=== PATIENT | female | born 1940 | race Caucasian/White ===

== ENCOUNTER → 2016-09-19 | Outpatient (CLI) | payer MEDICARE ==
--- NOTE | 2016-09-19 13:52 | MM ---
Reason for exam: screening (asymptomatic). Last mammogram was performed 1 year and 1 month ago. History: Patient is postmenopausal. Family history of breast cancer in sister. Physical Findings: A clinical breast exam by your physician is recommended on an annual basis and results should be correlated with mammographic findings. MG 3D Screening Mammo W/Cad Bilateral CC and MLO view(s) were taken. Prior study comparison: August 27, 2015, bilateral MG 3d screening mammo w/cad. August 24, 2014, bilateral MG screening mammo w CAD. The breast tissue is heterogeneously dense. This may lower the sensitivity of mammography. There is no discrete abnormality. No significant changes when compared with prior studies. ASSESSMENT: Negative, BI-RAD 1 RECOMMENDATION: Routine screening mammogram of both breasts in 1 year.
--- NOTE | 2016-09-19 16:57 | BD ---
EXAMINATION TYPE: MG DEXA axial skeleton. DATE OF EXAM: 09/19/2016 CLINICAL HISTORY: 76-year-old female screening osteoporosis Height: 60.5 Weight: 211 FRAX RISK QUESTIONS: Alcohol (3 or more units per day): no Family History (Parent hip fracture): no Glucocorticoids (More than 3mos): no (Ex: prednisone, prednisolone, methylprednisolone, dexamethasone, and hydrocortisone). History of Fracture in Adulthood: yes, T-Spine Secondary Osteoporosis: 1. Type 1 Diabetes: no 2. Hyperthyroidism: no 3. Menopause before 45: no 4. Malnutrition: no 5. Chronic liver disease: no Rheumatoid Arthritis: no Current Tobacco Use: no RISK FACTORS HISTORY OF: Hip Fracture (Right/Left): no Spine Fracture: yes When: 2003 History of Wrist Fracture: no Surgery to Spine: yes T-6, T-7, & & later T-8 When: 2003 Family History of Osteoporosis: yes Active: somewhat Diet low in dairy products/other sources of calcium: about one serving a day at least Postmenopausal woman: yes Take estrogen and/or progesterone medications: no Lost more than 2 inches in height since high school: yes Frequent falls: yes, lately Poor Health: somewhat Hyperparathyroidism: no Adrenal Insufficiency: no MEDICATIONS: Prednisone or other steroids: no Thyroid Medications: no Osteoporosis Medications: Yes Which medication: Fosamax How Long: since before 2013 Additional Medications: blood pressure meds, cholesterol meds EXAM MEASUREMENTS: Bone mineral densitometry was performed using the [employer] System. Bone mineral density as measured about the Lumbar spine is: ----- L1-L4(G/cm2): 1.102 T Score Values are as follows: ----- L2: -0.6 ----- L3: -1.1 ----- L4: -0.9 ----- L1-L4: -0.7 Bone mineral density has: Decreased -3.4% since study of: 08/20/2013 Bone mineral density about the R hip (g/cm2): 0.886 Bone mineral density about the L hip (g/cm2): 0.843 T Score values are as follows: -----R Neck: -1.1 -----L Neck: -1.4 -----R Total: 0.0 -----L Total: -0.5 Bone mineral density has: Decreased -1.5% since study of: 08/20/2013 IMPRESSION: Osteopenia (T Score between -2.5 and -1 as noted by T score values There is slightly increased risk of fracture and the patient may be considered for treatment. Re-Screen 2-5 years. NOTE: T-SCORE=SD OF THE YOUNG ADULT MEAN.
== END | disposition home or self-care (01) ==
LOC: RADMAMWWP 09:42
PROVIDERS: ATTEND Family Medicine
DX: Z12.31 Encounter for screening mammogram for malignant neoplasm of breast (principal); Z13.820 Encounter for screening for osteoporosis; M85.80 Other specified disorders of bone density and structure, unspecified site
CPT/HCPCS: 77080; 77063; G0202

== ENCOUNTER → 2017-09-26 | Outpatient (CLI) | payer MEDICARE ==
[2017-09-26 10:46] LABS: Basophils # (A) 0.1 k/uL (0-0.2); Basophils % (A) 1 %; Eosinophils # (A) 0.3 k/uL (0-0.7); Eosinophils % (A) 5 %; HCT 39.2 % (34.0-46.0); HGB 12.4 gm/dL (11.4-16.0); Lymphocytes % (A) 18 %; MCH 27.7 pg (25.0-35.0); MCHC 31.7 g/dL (31.0-37.0); MCV 87.5 fL (80.0-100.0); Mean Platelet Volume 6.8; Monocytes # (A) 0.3 k/uL (0-1.0); Monocytes % (A) 5 %; Neutrophils # (A) 3.8 k/uL (1.3-7.7); Neutrophils % (A) 70 %; Platelet Count 258 k/uL (150-450); RBC 4.48 m/uL (3.80-5.40); RDW 13.8 % (11.5-15.5); WBC 5.5 k/uL (3.8-10.6)
[2017-09-26 10:54] LABS: Partial Thromboplastin Time 24.3 sec (22.0-30.0); Prothrombin Time 9.9 sec (9.0-12.0)
[2017-09-26 11:01] LABS: ALT 21 U/L (9-52); AST 17 U/L (14-36); Albumin 3.9 g/dL (3.5-5.0); Alkaline Phosphatase 56 U/L (38-126); Anion Gap 9 mmol/L; Blood Urea Nitrogen 13 mg/dL (7-17); Calcium 9.9 mg/dL (8.4-10.2); Carbon Dioxide 32 mmol/L (22-30); Chloride 96 mmol/L (98-107); Glucose 71 mg/dL (74-99); Potassium 4.5 mmol/L (3.5-5.1); Sodium 137 mmol/L (137-145); Total Bilirubin 0.2 mg/dL (0.2-1.3); Total Protein 6.1 g/dL (6.3-8.2)
[2017-09-26 11:05] LABS: Appearance,Urine Clear (Clear); Bacteria,Urine Few /hpf; Bilirubin,Urine Negative (Negative); Blood,Urine Negative (Negative); Color,Urine Colorless; Glucose,Urine (UA) Negative (Negative); Ketones,Urine Negative (Negative); Leukocyte Esterase,Urine Moderate (Negative); Mucus,Urine Rare /hpf; Nitrite,Urine Positive (Negative); Protein,Urine Negative (Negative); RBC,Urine <1 /hpf (0-5); Specific Gravity,Urine 1.007 (1.001-1.035); Squamous Epithelial Cell,Urine <1 /hpf (0-4); Urobilinogen,Urine <2.0 mg/dL (<2.0); WBC,Urine 19 /hpf (0-5)
== END | disposition home or self-care (01) ==
LOC: LABWHC1 09:48
PROVIDERS: ATTEND Orthopaedic Surgery
DX: Z01.812 Encounter for preprocedural laboratory examination (principal)
CPT/HCPCS: 36415; 80053; 81001; 85025; 85610; 85730; 87086

== ENCOUNTER → 2018-04-02 | Outpatient (CLI) | payer MEDICARE ==
--- NOTE | 2018-04-02 10:56 | MM ---
Reason for exam: screening (asymptomatic). Last mammogram was performed 1 year and 6 months ago. History: Patient is postmenopausal. Family history of breast cancer in sister. Physical Findings: A clinical breast exam by your physician is recommended on an annual basis and results should be correlated with mammographic findings. MG 3D Screening Mammo W/Cad Bilateral CC and MLO view(s) were taken. Prior study comparison: September 19, 2016, bilateral MG 3d screening mammo w/cad. August 27, 2015, bilateral MG 3d screening mammo w/cad. The breast tissue is heterogeneously dense. This may lower the sensitivity of mammography. No significant changes when compared with prior studies. ASSESSMENT: Benign, BI-RAD 2 RECOMMENDATION: Routine screening mammogram of both breasts in 1 year.
== END ==
LOC: RADMAMWWP 10:27
PROVIDERS: ATTEND Family Medicine
DX: Z12.31 Encounter for screening mammogram for malignant neoplasm of breast (principal)
CPT/HCPCS: 77063; 77067

== ENCOUNTER → 2018-08-19 | Outpatient (CLI) | payer MEDICARE ==
--- NOTE | 2018-08-20 10:13 | US ---
EXAMINATION TYPE: US kidneys/renal and bladder DATE OF EXAM: 08/19/2018 COMPARISON: NONE CLINICAL HISTORY: N28.1 CYST OF KIDNEY. History of kidney cyst, exam done with patient sitting up in wheelchair. EXAM MEASUREMENTS: Right Kidney: 10.9 x 4.6 x 3.5 cm Left Kidney: 9.7 x 4.5 x 4.4 cm Difficult and limited study due to patient body habitus and exam done with patient sitting up in wh eelchair Right Kidney: 1.4 x 1.2 x 1.4cm exophytic cystic area mid pole, limited by rib shadowing Left Kidney: 0.5cm echogenic focus inferior pole, limited by rib shadowing Bladder: not imaged due to limitations described above There is no evidence for hydronephrosis at this point in time. No nephrolithiasis is seen. No viri s are identified. IMPRESSION: 1. Simple appearing right renal cyst measuring 1.4 cm, benign and Bosniak category category. 2. Nonobstructing 5 mm left renal calculus. 3. Urinary bladder was not visualized as described above.
== END | disposition home or self-care (01) ==
LOC: RADUSWWP 16:02
PROVIDERS: ATTEND Family Medicine
DX: N28.1 Cyst of kidney, acquired (principal); N20.0 Calculus of kidney
CPT/HCPCS: 76770

== ENCOUNTER → 2018-11-08 | Outpatient (CLI) | payer MEDICARE ==
--- NOTE | 2018-11-11 19:24 | BD ---
EXAMINATION TYPE: Axial Bone Density DATE OF EXAM: 11/08/2018 COMPARISON: NONE CLINICAL HISTORY: 78-year-old female disorder of bone Height: 61 Weight: 200.1 FRAX RISK QUESTIONS: Alcohol (3 or more units per day): no Family History (Parent hip fracture): no Glucocorticoids (More than 3mos): no (Ex: prednisone, prednisolone, methylprednisolone, dexamethasone, and hydrocortisone). History of Fracture in Adulthood: yes Secondary Osteoporosis: 1. Type 1 Diabetes: no 2. Hyperthyroidism: no 3. Menopause before 45: no 4. Malnutrition: no 5. Chronic liver disease: no Rheumatoid Arthritis: no Current Tobacco Use: no RISK FACTORS HISTORY OF: Spine Fracture: t spine Family History of Osteoporosis: yes Active: no Diet low in dairy products/other sources of calcium: yes Postmenopausal woman: long time ago Lost more than 2 inches in height since high school: yes MEDICATIONS: Osteoporosis Medications: fosamax How Long: long time Additional Medications: Additional History: EXAM MEASUREMENTS: Bone mineral densitometry was performed using the [employer] System. Bone mineral density as measured about the Lumbar spine is: ----- L1-L4(G/cm2): 1.018 T Score Values are as follows: ----- L2: -1.2 ----- L3: -1.6 ----- L4: -1.2 ----- L1-L4: -1.3 Bone mineral density has: decreased -4.8 % since study of: 09.19.2016 Bone mineral density about the R hip (g/cm2): 0.851 Bone mineral density about the L hip (g/cm2): 0.791 T Score values are as follows: -----R Neck: -1.3 -----L Neck: -1.8 -----R Total: -0.9 -----L Total: -1.4 Bone mineral density has: decreased -11.6 % since study of: 09.19.2016 IMPRESSION: Osteopenia (T Score between -2.5 and -1). There is slightly increased risk of fracture and the patient may be considered for treatment. Re-Screen 2-5 years. NOTE: T-SCORE=SD OF THE YOUNG ADULT MEAN.
== END | disposition home or self-care (01) ==
LOC: RADBDWWP 13:16
PROVIDERS: ATTEND Family Medicine
DX: M85.80 Other specified disorders of bone density and structure, unspecified site (principal)
CPT/HCPCS: 77080

== ENCOUNTER → 2018-12-12 | Outpatient (CLI) | payer MEDICARE ==
--- NOTE | 2018-12-12 13:56 | MR ---
EXAMINATION TYPE: MR kidney wo/w con DATE OF EXAM: 12/12/2018 COMPARISON: Renal ultrasound dated 08/19/2018 HISTORY: Cyst on left kidney CONTRAST: Standard multiplanar, multisequence MRI departmental protocol utilizing 9 mL intravenous Gadavist canelo olinium contrast. FINDINGS: Signal dropout throughout the hepatic parenchyma is seen on out of phase imaging compatible with hepa tic steatosis appearing moderate grade. This somewhat limits evaluation for hepatic masses. The liver is incompletely viewed on T2-weighted images. In the visualized portions there are 3 T2 hyperintense hepatic cysts seen, one with a single thin septation. These all appear benign. The largest measures 1.5 cm. There is very mild intrahepatic biliary ductal dilatation slightly greater than the left hepa tic lobe and right. There is very mild left-sided hydronephrosis with calyceal blunting and proximal ureteral dilatation. Possible proximal ureteral stricture versus incomplete visualization with tortuosity In addition to multiple T2 hyperintense benign appearing renal cysts there is an exophytic right lowe r pole slightly T1 hyperintense nonenhancing lesion measuring 1.0 cm that is T2 hypointense on bal l T2 nonfat sat image 17. This is compatible with a small hemorrhagic cyst. The larger T2 hyperintens e and T1 hypointense nonenhancing cysts bilaterally, particularly within the anterior right midpole c ontaining a single thin internal septation measuring 1.5 x 1.4 cm and emanating posteriorly from the mid pole measuring 0.8 cm. On the left there is a 4 mm nonenhancing midpole renal cyst and 1.1 x 1.1 cm nonenhancing left upper pole renal cyst. No hydronephrosis on the right. On the left there is a T2 hypointense and T1 hyperintense nonenhancing exophytic 7 mm lesion of the left lower pole compatible with a benign proteinaceous or hemorrhagic cyst. No dilated large or small bowel is seen. The pancreas has a tortuous course and there is a lobulated aspect of the dorsal body of the pancreas that abuts a branch vessel of the splenic artery. This appe ars to enhance similar to the remainder of the pancreatic parenchyma and there is no ductal dilatatio n seen. No peripancreatic adenopathy. Adrenal glands appear symmetric and unremarkable. Spleen is also unremarkable. Mild left hemidiaphrag m elevation is seen. Right basilar atelectasis is noted. Incidentally seen small low ventral hernia p araseptal. IMPRESSION: 1. Lobulated contour of the dorsal pancreatic body. This appears to have enhancement similar to the r emainder the pancreatic body and could represent congenital accessory pancreatic tissue. Correlation with any prior outside CT abdomen or MRI abdomen could be recommended to ensure stability, otherwise early pancreatic mass is possible and short-term follow-up MR abdomen and 3-6 months would be recomme nded. 2. Benign bilateral renal cysts, some of which appear as hemorrhagic and proteinaceous cysts. None de monstrate suspicious enhancement. 3. Incidentally seen. Mild left-sided hydronephrosis with possible left proximal ureteral stricture v ersus spasm and incomplete visualization. 4. Multiple benign-appearing hepatic cysts and moderate grade hepatic steatosis.
== END | disposition home or self-care (01) ==
LOC: RADMRIMAIN 10:40
PROVIDERS: ATTEND Family Medicine
DX: Q61.02 Congenital multiple renal cysts (principal); K76.0 Fatty (change of) liver, not elsewhere classified
CPT/HCPCS: 74183; A9585

== ENCOUNTER → 2020-09-13 | Outpatient (CLI) | payer MEDICARE ==
--- NOTE | 2020-09-15 08:15 | MM ---
Reason for exam: screening (asymptomatic). Last mammogram was performed 2 years and 5 months ago. History: Patient is postmenopausal. Family history of breast cancer in cousin and breast cancer in sister. Physical Findings: A clinical breast exam by your physician is recommended on an annual basis and results should be correlated with mammographic findings. MG 3D Screening Mammo W/Cad Bilateral CC and MLO view(s) were taken. Prior study comparison: April 02, 2018, bilateral MG 3d screening mammo w/cad. September 19, 2016, bilateral MG 3d screening mammo w/cad. August 27, 2015, bilateral MG 3d screening mammo w/cad. The breast tissue is heterogeneously dense. This may lower the sensitivity of mammography. No significant changes when compared with prior studies. ASSESSMENT: Benign, BI-RAD 2 RECOMMENDATION: Routine screening mammogram of both breasts in 1 year.
== END | disposition home or self-care (01) ==
LOC: RADMAMWWP 09:09
PROVIDERS: ATTEND Family Medicine
DX: Z12.31 Encounter for screening mammogram for malignant neoplasm of breast (principal); Z78.0 Asymptomatic menopausal state; Z80.3 Family history of malignant neoplasm of breast
CPT/HCPCS: 77063; 77067

== ENCOUNTER 2021-04-23 01:07 | Emergency (ER) | payer MEDICARE ==
[2021-04-23 01:17] VITALS: RESP 16; TEMP 97.9
--- NOTE | 2021-04-23 01:34 | ED ---
General Adult HPI - General Chief complaint: Extremity Injury, Upper Stated complaint: R Shoulder Fracture Time Seen by Provider: 04/23/21 01:31 Source: patient, EMS, RN notes reviewed, old records reviewed Mode of arrival: EMS - History of Present Illness Initial comments: 80-year-old female alert and oriented, presents to the emergency room with complaints of right shoulder pain. Patient states that she's had the pain since she fell a month ago. She had an x-ray today at [facility] that shows an anterior displaced humerus with an acute fracture in the superior scapula about the right glenoid. Patient describes the pain is 5 out of 10. Stated they gave her Tylenol today for her pain which has helped. -: month(s) (1) Location: right (shoulder), upper extremity Radiation: non-radiation Severity scale (1-10): 5 Quality: aching, dull Improves with: immobilization Worsens with: movement Associated Symptoms: denies other symptoms Treatments Prior to Arrival: other (tylenol, xr) - Related Data Home Medications Medication Instructions Recorded Confirmed Albuterol Inhaler (Mhu) [Ventolin 1 - 2 puff INHALATION Q4-6H PRN 08/22/13 06/07/17 Inhaler] Alendronate Sodium [Fosamax] 70 mg PO WEEKLY 08/22/13 06/07/17 Aspirin 81 mg PO DAILY 08/22/13 06/07/17 Benazepril [Lotensin] 15 mg PO DAILY 08/22/13 06/07/17 Fenofibric Acid (Choline) 135 mg PO HS 08/22/13 06/07/17 [Trilipix] Fexofenadine HCl [Soniya Allergy] 180 mg PO DAILY 08/22/13 06/07/17 Fluticasone Propionate [Flonase] 2 spray EA NOSTRIL DAILY 08/22/13 06/07/17 Ibuprofen [Motrin] 600 mg PO Q6HR PRN 08/22/13 06/07/17 Omeprazole [PriLOSEC] 20 mg PO AC-BRKFST 08/22/13 06/07/17 Simvastatin [Zocor] 80 mg PO HS 08/22/13 06/07/17 atenoloL [Tenormin] 50 mg PO BID 08/22/13 06/07/17 cloNIDine HCL [Catapres] 1 tab PO BID 08/22/13 06/07/17 hydroCHLOROthiazide [Hydrodiuril] 0.75 tab PO DAILY 08/22/13 06/07/17 Allergies Allergy/AdvReac Type Severity Reaction Status Date / Time No Known Allergies Allergy Verified 04/23/21 01:11 Review of Systems ROS Statement: Those systems with pertinent positive or pertinent negative responses have been documented in the HPI. ROS Other: All systems not noted in ROS Statement are negative. Past Medical History Past Medical History: Hypertension History of Any Multi-Drug Resistant Organisms: None Reported Past Surgical History: Back Surgery, Orthopedic Surgery Past Psychological History: No Psychological Hx Reported Smoking Status: Never smoker Past Alcohol Use History: None Reported Past Drug Use History: None Reported General Exam General appearance: alert, in no apparent distress Head exam: Present: atraumatic Neck exam: Present: normal inspection. Absent: tenderness, meningismus Respiratory exam: Present: normal lung sounds bilaterally Cardiovascular Exam: Present: bradycardia GI/Abdominal exam: Present: soft. Absent: distended, tenderness Right Shoulder Exam: Present: tenderness, swelling. Absent: full ROM, abrasion, laceration, ecchymosis, erythema, tenderness over AC joint Upper Arm exam: Absent: tenderness, ecchymosis, erythema Elbow exam: Absent: tenderness Forearm Wrist exam: Absent: tenderness Hand Wrist exam: Absent: tenderness Vascular: Present: normal capillary refill, radial pulse. Absent: vascular compromise Back exam: Present: normal inspection. Absent: tenderness, CVA tenderness (R), CVA tenderness (L) Neurological exam: Present: alert, oriented X3 Psychiatric exam: Present: normal affect, normal mood Skin exam: Present: warm, dry, normal color. Absent: cyanosis, diaphoretic Course Vital Signs 04/23/21 04/23/21 01:11 03:06 Temperature 97.9 F Pulse Rate 50 L 52 L Respiratory 16 16 Rate Blood Pressure 128/58 114/70 O2 Sat by Pulse 98 98 Oximetry - Reevaluation(s) Reevaluation #1: 04/23/21 02:[address] Myers. images were sent via [facility]. He suggested patient be placed in a sling and directed to follow up with orthopedics next week. Time: 02:54 Medical Decision Making - Medical Decision Making Patient presents with right shoulder pain after a fall a month ago. She states that she has had discomfort in the right upper arm since the fall. XR done at [facility] showed fracture. X-ray right shoulder was repeated in the ER and shows deformity of the glenoid anterior mild subluxation of the humeral head with a partial anterior dislocation. There is also a soft tissue calcification posterior to the humeral neck which is consistent with an old injury. CT of the right shoulder shows fractures of the acromion and coracoid process of the scapula near the glenoid with mild displacement, appearing subacute which is consistent with the patient's complaints of a fall a month ago. There is also evidence of posterior susan-arthrosis with calcification. Case was discussed with Dr. Myers who recommended patient be placed in a sling and directed to follow up with orthopedics in the office next week. Patient states that she has no pain as long as the arm is immobilized. Patient is neurovascularly intact. Case discussed with Dr. Hodgson Disposition Clinical Impression: Fracture of acromion of scapula Disposition: HOME SELF-CARE Condition: Good Instructions (If sedation given, give patient instructions): Scapular Fracture (ED) Additional Instructions: Continue taking Tylenol as needed for pain and wear the sling until seen by orthopedics next week. Please call for an appointment with orthopedics on Sunday morning. Is patient prescribed a controlled substance at d/c from ED?: No Referrals: Yoni Polanco MD [Primary Care Provider] - 1-2 days Allie Zurita DO [Doctor of Osteopathic Medicine] - 1-2 days Time of Disposition: 03:00
--- NOTE | 2021-04-23 02:00 | XR ---
EXAMINATION TYPE: XR shoulder complete RT DATE OF EXAM: 04/23/2021 COMPARISON: NONE HISTORY: Fall. Pain. TECHNIQUE: 4 views FINDINGS: There is some amorphous calcification in the soft tissues posterior to the humeral neck. Th ere is no dislocation. There is some deformity of the humeral head and the glenoid. On the oblique vi ew there is slight anterior position of the humeral head in relation to the glenoid. IMPRESSION: Deformity of the glenoid. Anterior mild subluxation of the humeral head with partial ante rior dislocation. Amorphous soft tissue calcification posterior to the humeral neck. This is consiste nt with old injury. No acute fracture line seen. Comparison with an older exam would be helpful.
--- NOTE | 2021-04-23 02:30 | CT ---
EXAMINATION TYPE: CT shoulder RT wo con DATE OF EXAM: 04/23/2021 COMPARISON: No previous CT scan HISTORY: fall 1 month ago. pain starting recently. had xray earlier at another facility and it was no leonardo the shoulder was fractured. no prior on PACS CT DLP: 927.4 mGycm Automated exposure control for dose reduction was used. Images obtained from the top of the shoulder to the bottom of the scapula without contrast. There is fracture of the acromion process. The fracture line measures 11 mm. There is also fracture o f the base of the coracoid process of the scapula with separation 5 mm. There is anterior dislocation of the humeral head. There is deformity of the humeral head with spur formation and some fragmentati on at the greater tuberosity humerus. This is likely related to recurrent dislocations. There is some amorphous calcification posterior to the shoulder joint with irregular fluid collections. This area measures 9 x 5 cm. This is consistent with a complex shoulder joint effusion. Fluid is also seen ant erior to the humeral head. The AC joint is anatomic. IMPRESSION: Fractures of the acromion and the coracoid process of the scapula near the glenoid with mild displace ment. Fractures appear subacute. Deformity of the humeral head with anterior dislocation and consiste nt with recurrent dislocation. Extensive amorphous calcification with fluid seen around the shoulder joint and posteriorly could be hemarthrosis with calcification.
[2021-04-23 03:06] VITALS: BP 114/70; PULSE 52
--- NOTE | 2021-04-23 07:17 | P.PN ---
Progress Note - Text Progress Note Date: 04/23/21 I was called by the ED regarding this patient last night. Per the ED she had a fall over a month ago. She has had discomfort with motion over the past month. Due to continued pain, her [facility] obtained an xray which showed a dislocated shoulder. In the ED she had an xray and CT scan which I reviewed. 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 I recommended against an attempt at closed reduction as this would likely be unsuccessful and would risk further fracture. I recommended placing her in a sling and having follow-up with an upper extremity specialist next week as she is comfortable except with over head motion.
== END 2021-04-23 04:11 | disposition home or self-care (01) ==
LOC: EC 01:07
DX: S42.121A Displaced fracture of acromial process, right shoulder, initial encounter for closed fracture (principal); I10 Essential (primary) hypertension; W19.XXXA Unspecified fall, initial encounter
CPT/HCPCS: 99284

== ENCOUNTER → 2021-09-14 | Outpatient (CLI) | payer MEDICARE, OTHER ==
--- NOTE | 2021-09-14 14:11 | MM ---
Reason for Exam: Screening (asymptomatic). Last screening mammogram was performed 12 month(s) ago. Patient History: Menarche at age 14. Postmenopausal. Maternal cousin had breast cancer. Sister had breast cancer. Risk Values: Brittany 5 year model risk: 3.1%. NCI Lifetime model risk: 5.2%. Prior Study Comparison: 09/19/2016 Bilateral Screening Mammogram, [facility]. 04/02/2018 Bilateral Screening Mammogram, [facility]. 09/13/2020 Bilateral Screening Mammogram, [facility]. Tissue Density: The breast tissue is heterogeneously dense. This may lower the sensitivity of mammography. Findings: Analyzed By CAD. Asymmetric density upper outer right breast. Additional views are recommended. There is no suspicious group of microcalcifications or new suspicious mass in the left breast breast. Overall Assessment: Incomplete: need additional imaging evaluation, BI-RAD 0 Management: Diagnostic Mammogram of the right breast. A clinical breast exam by your physician is recommended on an annual basis and results should be correlated with mammographic findings. Electronically signed and approved by: Dominic Farris M.D. Radiologis
--- NOTE | 2021-09-14 14:38 | MM ---
Reason for Exam: Additional evaluation requested from abnormal screening. Last screening mammogram was performed 12 month(s) ago. Patient History: Menarche at age 14. Postmenopausal. Maternal cousin had breast cancer. Sister had breast cancer. Risk Values: Brittany 5 year model risk: 3.1%. NCI Lifetime model risk: 5.2%. Tissue Density: Right: The breast tissue is heterogeneously dense. This may lower the sensitivity of mammography. Findings: Analyzed By CAD. Density in question does not persist. Overall Assessment: Negative, BI-RAD 1 Management: Screening Mammogram of both breasts in 1 year. A clinical breast exam by your physician is recommended on an annual basis and results should be correlated with mammographic findings. This exam should not preclude additional follow-up of suspicious palpable abnormalities. Results were given to the patient verbally at the time of exam. Electronically signed and approved by: Dominic Farris M.D. Radiologis
== END | disposition home or self-care (01) ==
LOC: RADMAMWWP 12:54
PROVIDERS: ATTEND Family Medicine
DX: Z12.31 Encounter for screening mammogram for malignant neoplasm of breast (principal); Z78.0 Asymptomatic menopausal state; Z80.3 Family history of malignant neoplasm of breast
CPT/HCPCS: 77067; 77065; 77063; G0279; 77061

== ENCOUNTER 2021-10-22 13:47 | Inpatient (IN) | payer MEDICARE, OTHER ==
[2021-10-22] MEDS ORDERED: SODIUM CHLORIDE 0.9% 2,000 ML IV ONE (14:10)
[2021-10-22 14:50] LABS: Basophils # (A) 0.1 k/uL (0-0.2); Basophils % (A) 1 %; Eosinophils # (A) 0.8 k/uL (0-0.7); Eosinophils % (A) 9 %; HCT 35.3 % (34.0-46.0); HGB 11.4 gm/dL (11.4-16.0); Lymphocytes # (A) 1.1 k/uL (1.0-4.8); Lymphocytes % (A) 13 %; MCH 30.3 pg (25.0-35.0); MCHC 32.3 g/dL (31.0-37.0); MCV 93.8 fL (80.0-100.0); Mean Platelet Volume 7.3; Monocytes # (A) 0.4 k/uL (0-1.0); Monocytes % (A) 5 %; Neutrophils # (A) 6.2 k/uL (1.3-7.7); Neutrophils % (A) 72 %; Platelet Count 243 k/uL (150-450); RBC 3.77 m/uL (3.80-5.40); RDW 13.2 % (11.5-15.5); WBC 8.6 k/uL (3.8-10.6)
[2021-10-22 14:59] LABS: ALT 13 U/L (4-34); AST 13 U/L (14-36); African American GFR (CKD) >90 (>60 ml/min/1.73 sqM); Albumin 2.9 g/dL (3.5-5.0); Alkaline Phosphatase 62 U/L (38-126); Anion Gap 7 mmol/L; Blood Urea Nitrogen 14 mg/dL (7-17); Calcium 8.4 mg/dL (8.4-10.2); Carbon Dioxide 25 mmol/L (22-30); Chloride 97 mmol/L (98-107); Glucose 127 mg/dL (74-99); Magnesium 1.8 mg/dL (1.6-2.3); Non-African American GFR(CKD) >90 (>60 ml/min/1.73 sqM); Potassium 4.5 mmol/L (3.5-5.1); Sodium 129 mmol/L (137-145); Total Bilirubin 0.1 mg/dL (0.2-1.3); Total Protein 5.1 g/dL (6.3-8.2)
[2021-10-22 15:08] LABS: Prothrombin Time 10.8 sec (9.0-12.0)
[2021-10-22] MEDS: SODIUM CHLORIDE 0.9% 1,000 ML IV SCH ×2 (16:02→23:13)
[2021-10-22] MEDS ORDERED: SODIUM CHLORIDE 0.9% 1,000 ML IV ONE (16:31)
[2021-10-22 16:32] LABS: Erythrocyte Sedimentation Rate 14 mm/hr (0-20)
--- NOTE | 2021-10-22 17:12 | XR ---
EXAMINATION TYPE: XR chest 2V DATE OF EXAM: 10/22/2021 COMPARISON: NONE HISTORY: Hypotension TECHNIQUE: 2 views FINDINGS: There is no heart failure nor confluent pneumonic infiltrate. There are rods and screws fus ing posteriorly the thoracic spine. There is multilevel thoracic vertebroplasty. No pleural effusion. IMPRESSION: No active cardiopulmonary disease.
--- NOTE | 2021-10-22 17:14 | XR ---
EXAMINATION TYPE: XR shoulder complete RT DATE OF EXAM: 10/22/2021 COMPARISON: 04/23/2021 HISTORY: Erythema TECHNIQUE: 4 views FINDINGS: There is anterior dislocation of the humeral head. This arthritic changes with deformity of the glenoid. The AC joint is intact. 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 No d efinite focal bone destruction. No adverse change.
--- NOTE | 2021-10-22 17:37 | ED ---
General Adult HPI - General Chief complaint: Skin/Abscess/Foreign Body Stated complaint: Rash Time Seen by Provider: 10/22/21 14:04 Source: patient, EMS Mode of arrival: EMS Limitations: no limitations - History of Present Illness Initial comments: Patient is a 81-year-old female, history of hypertension and repeated right shoulder dislocation, presenting for evaluation of rash across the chest and stomach. Rash has been present for the last 2-1/2 weeks, there are several red blotches across the chest and stomach as well as the proximal arms. Patient states that they are pruritic but not painful. States that they eventually blister. Patient resides at [facility], they were concerned because of redness to the right shoulder, center to the ER for evaluation. Denies chest pain, shortness of breath, fever, chills, nausea, vomiting, abdominal pain, dysuria, hematuria, flank pain, palpitations, numbness, tingling, headache, vision or hearing changes, neck pain, hematochezia, melena. - Related Data Home Medications Medication Instructions Recorded Confirmed Alendronate Sodium [Fosamax] 70 mg PO WEEKLY 08/22/13 06/07/17 Fexofenadine HCl [Soniya Allergy] 180 mg PO DAILY 08/22/13 06/07/17 Omeprazole [PriLOSEC] 20 mg PO AC-BRKFST 08/22/13 06/07/17 Acetaminophen Tab [Tylenol] 650 mg PO Q4H PRN 10/22/21 10/22/21 Acetaminophen [Tylenol 8 Hour] 650 mg PO Q8H 10/22/21 10/22/21 Albuterol Sulfate [Proventil Hfa] 2 puff INHALATION RT-Q6H PRN 10/22/21 10/22/21 Aspirin EC [Ecotrin Low Dose] 81 mg PO DAILY@0600 10/22/21 10/22/21 Atorvastatin Calcium [Lipitor] 40 mg PO HS 10/22/21 10/22/21 Benazepril HCl 40 mg PO DAILY 10/22/21 10/22/21 Calcium Carbonate/Vitamin D3 1 tab PO BID 10/22/21 10/22/21 [Calcium 500-Vit D3 5 Mcg (200 Iu)] Cholecalciferol [Vitamin D3 (25 50 mcg PO DAILY 10/22/21 10/22/21 Mcg = 1000 Iu)] Furosemide [Lasix] 40 mg PO BID@0600,1400 10/22/21 10/22/21 Gabapentin [Neurontin] 100 mg PO Q12H 10/22/21 10/22/21 Hydrocortisone Cream 1 applic TOPICAL BID 10/22/21 10/22/21 [Hydrocortisone 2.5% Cream] Lactobacillus Acidophilus 1 cap PO BID 10/22/21 10/22/21 [Acidophilus Probiotic] Magnesium Oxide 400 mg PO HS 10/22/21 10/22/21 Methyl Salicylate/Menth/Camph 1 patch TRANSDERM DAILY 10/22/21 10/22/21 [Salonpas 3.1%-6.0%-10.0% Patch] Multivitamins, Thera [Multivitamin 1 tab PO DAILY 10/22/21 10/22/21 (formulary)] [place]-3/Dha/Epa/Fish Oil [Fish Oil 2 cap PO HS 10/22/21 10/22/21 1,000 mg Softgel] Potassium Chloride [Klor-Con 10 ER] 10 meq PO DAILY 10/22/21 10/22/21 Sennosides [Senokot] 17.2 mg PO Q12H 10/22/21 10/22/21 Simethicone [Gas-X] 125 mg PO TID@0900,1400,2100 10/22/21 10/22/21 allopurinoL [Zyloprim] 100 mg PO DAILY 10/22/21 10/22/21 diphenhydrAMINE HCL [Benadryl] 25 mg PO TID PRN 10/22/21 10/22/21 guaiFENesin-DM 100-10MG/5ML 10 ml PO Q4H PRN 10/22/21 10/22/21 [Robitussin DM] polyethylene glycoL 3350 [Miralax] 17 gm PO DAILY 10/22/21 10/22/21 tiZANidine [Zanaflex] 2 mg PO TID PRN 10/22/21 10/22/21 Allergies Allergy/AdvReac Type Severity Reaction Status Date / Time No Known Allergies Allergy Verified 10/22/21 18:48 Review of Systems ROS Statement: Those systems with pertinent positive or pertinent negative responses have been documented in the HPI. ROS Other: All systems not noted in ROS Statement are negative. Past Medical History Past Medical History: Hypertension History of Any Multi-Drug Resistant Organisms: None Reported Past Surgical History: Back Surgery, Orthopedic Surgery Past Psychological History: No Psychological Hx Reported Smoking Status: Never smoker Past Alcohol Use History: None Reported Past Drug Use History: None Reported General Exam Limitations: no limitations General appearance: alert, in no apparent distress Head exam: Present: atraumatic, normocephalic, normal inspection Eye exam: Present: normal appearance, EOMI. Absent: scleral icterus, periorbital swelling ENT exam: Present: mucous membranes dry Neck exam: Present: normal inspection Respiratory exam: Present: normal lung sounds bilaterally. Absent: respiratory distress, wheezes, rales, rhonchi, stridor Cardiovascular Exam: Present: normal rhythm, bradycardia, normal heart sounds. Absent: systolic murmur, diastolic murmur, rubs, gallop, clicks GI/Abdominal exam: Present: soft. Absent: distended, tenderness, guarding, rebound, rigid Rectal exam: Present: normal inspection, heme (-) stool Neurological exam: Present: alert, oriented X3, CN II-XII intact Psychiatric exam: Present: normal affect, normal mood Skin exam: Present: warm, dry, intact, rash (Red patches across the chest and abdomen, pruritic, negative Nikolsky sign) Course Vital Signs 10/22/21 10/22/21 10/22/21 13:50 14:08 15:52 Temperature 97.6 F 98.2 F 98.8 F Pulse Rate 58 L 58 L 60 Respiratory 16 16 16 Rate Blood Pressure 85/50 86/43 114/87 O2 Sat by Pulse 97 96 96 Oximetry 10/22/21 10/22/21 16:13 18:17 Temperature 97.5 F L 98.4 F Pulse Rate 58 L 60 Respiratory 16 16 Rate Blood Pressure 126/114 131/98 O2 Sat by Pulse 97 96 Oximetry EKG Findings - EKG Comments: EKG Findings:: Sinus bradycardia with first-degree AV block MI interval 266. Occasional ectopic premature complexes. Rate of 48. MI interval 266. QRS du ration 92. Medical Decision Making - Medical Decision Making Patient is a 81-year-old female presenting for evaluation of pruritic rash across the chest and abdomen for the last 2 weeks. On arrival patient is hypotensive at 85/50. She is complaining of no chest pain, shortness of breath, belly pain, headache, dizziness. On examination patient appears dry. No fever or chills, patient is bradycardic, currently taking atenolol. Rash across the chest and abdomen appears as red patches, some appear to be fluid-filled. Rash appears consistent with bullous pemphigoid, negative Nikolsky sign. No leukocytosis. Normal PT/INR and APTT. Sodium is 129. Negative stool occult blood. Chest x-ray is negative for any acute process. Shoulder x-ray shows chronic anterior dislocation and subluxation at the right shoulder joint no definite focal bone destruction. No adverse change. ESR is 14. UA shows signs of UTI, patient is treated with Rocephin. Patient will be admitted for dehydration, hypotension, and UTI. I spoke with Deirdre from [facility], agreed to admit the patient. I discussed this plan with the patient, she was agreeable to this plan. I discussed this case with my attending Dr. Judd. - Lab Data Result diagrams: 10/22/21 14:34 10/22/21 14:34 Lab Results 10/22/21 10/22/21 10/22/21 Range/Units 14:34 14:34 14:34 WBC 8.6 (3.8-10.6) k/uL RBC 3.77 L (3.80-5.40) m/uL Hgb 11.4 (11.4-16.0) gm/dL Hct 35.3 (34.0-46.0) % MCV 93.8 (80.0-100.0) fL MCH 30.3 (25.0-35.0) pg MCHC 32.3 (31.0-37.0) g/dL RDW 13.2 (11.5-15.5) % Plt Count 243 (150-450) k/uL MPV 7.3 Neutrophils % 72 % Lymphocytes % 13 % Monocytes % 5 % Eosinophils % 9 % Basophils % 1 % Neutrophils # 6.2 (1.3-7.7) k/uL Lymphocytes # 1.1 (1.0-4.8) k/uL Monocytes # 0.4 (0-1.0) k/uL Eosinophils # 0.8 H (0-0.7) k/uL Basophils # 0.1 (0-0.2) k/uL ESR 14 (0-20) mm/hr PT 10.8 (9.0-12.0) sec INR 1.0 (<1.2) APTT 26.0 (22.0-30.0) sec Sodium 129 L (137-145) mmol/L Potassium 4.5 (3.5-5.1) mmol/L Chloride 97 L (98-107) mmol/L Carbon Dioxide 25 (22-30) mmol/L Anion Gap 7 mmol/L BUN 14 (7-17) mg/dL Creatinine 0.49 L (0.52-1.04) mg/dL Est GFR (CKD-EPI)AfAm >90 (>60 ml/min/1.73 sqM) Est GFR (CKD-EPI)NonAf >90 (>60 ml/min/1.73 sqM) Glucose 127 H (74-99) mg/dL Plasma Lactic Acid Donald (0.7-2.0) mmol/L Calcium 8.4 (8.4-10.2) mg/dL Magnesium 1.8 (1.6-2.3) mg/dL Total Bilirubin 0.1 L (0.2-1.3) mg/dL AST 13 L (14-36) U/L ALT 13 (4-34) U/L Alkaline Phosphatase 62 (38-126) U/L Troponin I (0.000-0.034) ng/mL Total Protein 5.1 L (6.3-8.2) g/dL Albumin 2.9 L (3.5-5.0) g/dL Urine Color Urine Appearance (Clear) Urine pH (5.0-8.0) Ur Specific [place] (1.001-1.035) Urine Protein (Negative) Urine Glucose (UA) (Negative) Urine Ketones (Negative) Urine Blood (Negative) Urine Nitrite (Negative) Urine Bilirubin (Negative) Urine Urobilinogen (<2.0) mg/dL Ur Leukocyte Esterase (Negative) Urine RBC (0-5) /hpf Urine WBC (0-5) /hpf Urine WBC Clumps (None) /hpf Ur Squamous Epith Cells (0-4) /hpf Urine Bacteria (None) /hpf Urine Mucus (None) /hpf Stool Occult Blood (Negative) Coronavirus (PCR) (Not Detectd) Influenza Type A RNA (Not Detectd) Influenza Type B (PCR) (Not Detectd) 10/22/21 10/22/21 10/22/21 Range/Units 14:34 14:34 15:03 WBC (3.8-10.6) k/uL RBC (3.80-5.40) m/uL Hgb (11.4-16.0) gm/dL Hct (34.0-46.0) % MCV (80.0-100.0) fL MCH (25.0-35.0) pg MCHC (31.0-37.0) g/dL RDW (11.5-15.5) % Plt Count (150-450) k/uL MPV Neutrophils % % Lymphocytes % % Monocytes % % Eosinophils % % Basophils % % Neutrophils # (1.3-7.7) k/uL Lymphocytes # (1.0-4.8) k/uL Monocytes # (0-1.0) k/uL Eosinophils # (0-0.7) k/uL Basophils # (0-0.2) k/uL ESR (0-20) mm/hr PT (9.0-12.0) sec INR (<1.2) APTT (22.0-30.0) sec Sodium (137-145) mmol/L Potassium (3.5-5.1) mmol/L Chloride (98-107) mmol/L Carbon Dioxide (22-30) mmol/L Anion Gap mmol/L BUN (7-17) mg/dL Creatinine (0.52-1.04) mg/dL Est GFR (CKD-EPI)AfAm (>60 ml/min/1.73 sqM) Est GFR (CKD-EPI)NonAf (>60 ml/min/1.73 sqM) Glucose (74-99) mg/dL Plasma Lactic Acid Donald 1.1 (0.7-2.0) mmol/L Calcium (8.4-10.2) mg/dL Magnesium (1.6-2.3) mg/dL Total Bilirubin (0.2-1.3) mg/dL AST (14-36) U/L ALT (4-34) U/L Alkaline Phosphatase (38-126) U/L Troponin I (0.000-0.034) ng/mL Total Protein (6.3-8.2) g/dL Albumin (3.5-5.0) g/dL Urine Color Light Yellow Urine Appearance Turbid H (Clear) Urine pH 6.5 (5.0-8.0) Ur Specific [place] 1.008 (1.001-1.035) Urine Protein Trace H (Negative) Urine Glucose (UA) Negative (Negative) Urine Ketones Negative (Negative) Urine Blood Small H (Negative) Urine Nitrite Negative (Negative) Urine Bilirubin Negative (Negative) Urine Urobilinogen <2.0 (<2.0) mg/dL Ur Leukocyte Esterase Large H (Negative) Urine RBC 17 H (0-5) /hpf Urine WBC >182 H (0-5) /hpf Urine WBC Clumps Many H (None) /hpf Ur Squamous Epith Cells 2 (0-4) /hpf Urine Bacteria Many H (None) /hpf Urine Mucus Rare H (None) /hpf Stool Occult Blood Negative (Negative) Coronavirus (PCR) (Not Detectd) Influenza Type A RNA (Not Detectd) Influenza Type B (PCR) (Not Detectd) 10/22/21 10/22/21 10/22/21 Range/Units 17:00 17:38 17:38 WBC (3.8-10.6) k/uL RBC (3.80-5.40) m/uL Hgb (11.4-16.0) gm/dL Hct (34.0-46.0) % MCV (80.0-100.0) fL MCH (25.0-35.0) pg MCHC (31.0-37.0) g/dL RDW (11.5-15.5) % Plt Count (150-450) k/uL MPV Neutrophils % % Lymphocytes % % Monocytes % % Eosinophils % % Basophils % % Neutrophils # (1.3-7.7) k/uL Lymphocytes # (1.0-4.8) k/uL Monocytes # (0-1.0) k/uL Eosinophils # (0-0.7) k/uL Basophils # (0-0.2) k/uL ESR (0-20) mm/hr PT (9.0-12.0) sec INR (<1.2) APTT (22.0-30.0) sec Sodium (137-145) mmol/L Potassium (3.5-5.1) mmol/L Chloride (98-107) mmol/L Carbon Dioxide (22-30) mmol/L Anion Gap mmol/L BUN (7-17) mg/dL Creatinine (0.52-1.04) mg/dL Est GFR (CKD-EPI)AfAm (>60 ml/min/1.73 sqM) Est GFR (CKD-EPI)NonAf (>60 ml/min/1.73 sqM) Glucose (74-99) mg/dL Plasma Lactic Acid Donald (0.7-2.0) mmol/L Calcium (8.4-10.2) mg/dL Magnesium (1.6-2.3) mg/dL Total Bilirubin (0.2-1.3) mg/dL AST (14-36) U/L ALT (4-34) U/L Alkaline Phosphatase (38-126) U/L Troponin I <0.012 (0.000-0.034) ng/mL Total Protein (6.3-8.2) g/dL Albumin (3.5-5.0) g/dL Urine Color Urine Appearance (Clear) Urine pH (5.0-8.0) Ur Specific [place] (1.001-1.035) Urine Protein (Negative) Urine Glucose (UA) (Negative) Urine Ketones (Negative) Urine Blood (Negative) Urine Nitrite (Negative) Urine Bilirubin (Negative) Urine Urobilinogen (<2.0) mg/dL Ur Leukocyte Esterase (Negative) Urine RBC (0-5) /hpf Urine WBC (0-5) /hpf Urine WBC Clumps (None) /hpf Ur Squamous Epith Cells (0-4) /hpf Urine Bacteria (None) /hpf Urine Mucus (None) /hpf Stool Occult Blood (Negative) Coronavirus (PCR) Not Detected (Not Detectd) Influenza Type A RNA Not Detected (Not Detectd) Influenza Type B (PCR) Not Detected (Not Detectd) Disposition Clinical Impression: Dehydration, UTI (urinary tract infection), Hypotension Disposition: ADMITTED IP TO THIS [facility] Condition: Fair Referrals: Yoni Polanco MD [Primary Care Provider] - 1-2 days Time of Disposition: 18:27 Decision to Admit Reason: Admit from EC Decision Date: 10/22/21 Decision Time: 18:27
[2021-10-22 17:51] LABS: Appearance,Urine Turbid (Clear); Bacteria,Urine Many /hpf; Bilirubin,Urine Negative (Negative); Blood,Urine Small (Negative); Color,Urine Light Yellow; Glucose,Urine (UA) Negative (Negative); Ketones,Urine Negative (Negative); Leukocyte Esterase,Urine Large (Negative); Mucus,Urine Rare /hpf; Nitrite,Urine Negative (Negative); PH, Urine 6.5 (5.0-8.0); Protein,Urine Trace (Negative); RBC,Urine 17 /hpf (0-5); Specific Gravity,Urine 1.008 (1.001-1.035); Squamous Epithelial Cell,Urine 2 /hpf (0-4); Urobilinogen,Urine <2.0 mg/dL (<2.0); WBC,Urine >182 /hpf (0-5)
[2021-10-22] MEDS ORDERED: cefTRIAXone IN SWFI 1,000 MG/10 ML SYRINGE IVP STA (18:20)
[2021-10-22] MEDS ORDERED: ACETAMINOPHEN TAB 325 MG TAB PO PRN (18:29)
[2021-10-22] MEDS ORDERED: NALOXONE 0.4 MG/ML 1 ML VIAL IV PRN (18:29)
[2021-10-22] MEDS ORDERED: IBUPROFEN 400 MG TAB PO PRN (18:29)
[2021-10-22] MEDS ORDERED: diphenhydrAMINE 25 MG CAP PO PRN (20:58)
[2021-10-22] MEDS ORDERED: ALBUTEROL NEBULIZED 2.5 MG/3 ML INHALATION PRN (20:58)
[2021-10-22] MEDS ORDERED: guaiFENesin-DM 100-10MG/5ML 10 ML CUP PO PRN (20:58)
[2021-10-22] MEDS ORDERED: tiZANidine 4 MG TAB PO PRN (20:58)
[2021-10-22] MEDS ORDERED: NON FORMULARY DRUG (Omega-3/Dha/Epa/Fish Oil [Fish Oil 1,000 Mg Softgel] 1 EACH Capsule) PO SCH (21:00)
[2021-10-22] MEDS ORDERED: lisinopriL 20 MG TAB PO SCH (21:00)
[2021-10-22] MEDS: MAGNESIUM OXIDE 400 MG TAB PO SCH (23:10)
[2021-10-22] MEDS: ATORVASTATIN 40 MG TAB PO SCH (23:10)
[2021-10-22] MEDS: GABAPENTIN 100 MG CAP PO SCH (23:10)
[2021-10-22] MEDS: CALCIUM CARB-VIT D 500 MG-5 MCG TAB PO SCH (23:10)
[2021-10-22] MEDS: SENNOSIDES 8.6 MG TAB PO SCH (23:11)
[2021-10-22] MEDS: HYDROCORTISONE 1% CREAM 30 GM TUBE TOPICAL SCH (23:11)
[2021-10-22] MEDS: LORATADINE 10 MG TAB PO SCH (23:11)
[2021-10-22] MEDS: LACTOBACILLUS ACIDOPH & BULGAR 1 EACH PACKET PO SCH (23:12)
[2021-10-22] MEDS: SIMETHICONE 80 MG CHEWABLE PO SCH (23:13)
[2021-10-23 03:22] LABS: Glucose,Whole Blood 83 mg/dL (70-110)
[2021-10-23] MEDS ORDERED: FUROSEMIDE 40 MG TAB PO SCH (06:00)
[2021-10-23] MEDS: SODIUM CHLORIDE 0.9% 1,000 ML IV SCH ×2 (07:01→12:45)
[2021-10-23] MEDS: PANTOPRAZOLE 40 MG TABLET PO SCH (07:22)
[2021-10-23] MEDS: GABAPENTIN 100 MG CAP PO SCH ×2 (07:22→20:59)
[2021-10-23] MEDS: CALCIUM CARB-VIT D 500 MG-5 MCG TAB PO SCH ×2 (07:22→20:59)
[2021-10-23] MEDS: CHOLECALCIFEROL 25 MCG (1000 IU) TABLET PO SCH (07:23)
[2021-10-23] MEDS: MULTIVITAMINS, THERA 1 EACH TAB PO SCH (07:23)
[2021-10-23] MEDS: allopurinoL 100 MG TAB PO SCH (07:23)
[2021-10-23] MEDS: LACTOBACILLUS ACIDOPH & BULGAR 1 EACH PACKET PO SCH ×2 (07:23→20:59)
[2021-10-23] MEDS: ASPIRIN 81 MG PO SCH (07:23)
[2021-10-23] MEDS: SENNOSIDES 8.6 MG TAB PO SCH ×2 (07:23→20:59)
[2021-10-23] MEDS: polyethylene glycoL 3350 17 GM POWD.PACK PO SCH (07:24)
[2021-10-23] MEDS: HYDROCORTISONE 1% CREAM 30 GM TUBE TOPICAL SCH ×2 (07:24→22:32)
[2021-10-23] MEDS: SIMETHICONE 80 MG CHEWABLE PO SCH ×3 (07:31→22:32)
[2021-10-23 09:41] LABS: Basophils # (A) 0.02 X 10*3/uL (0.00-0.10); Basophils % (A) 0.3 %; Eosinophils % (A) 9.1 %; HCT 32.2 % (37.2-46.3); HGB 10.3 g/dL (12.0-15.0); Immature Grans, Automated 0.7 %; Lymphocytes # (A) 1.22 X 10*3/uL (0.90-5.00); Lymphocytes % (A) 15.9 %; MCV 93.9 fL (80.0-97.0); Mean Platelet Volume 9.7 fL (9.5-12.2); Monocytes # (A) 0.48 X 10*3/uL (0.20-1.00); Monocytes % (A) 6.3 %; NRBC Per 100 WBC 0 /100 WBCS (0.0-0.0); Neutrophils # (A) 5.21 X 10*3/uL (1.80-7.70); Neutrophils % (A) 67.7 %; Platelet Count 206 X 10*3/uL (140-440); RBC 3.43 X 10*6/uL (4.10-5.20); RDW 13.3 % (11.5-14.5); WBC 7.68 X 10*3/uL (4.50-10.00)
--- NOTE | 2021-10-23 11:25 | P.HPIM ---
History of Present Illness Patient was a transfer from [facility] because of worsening rash initially believed to be secondary to soap which was changed and patient was not started any other new medications, ALLERGY and was not identified. Patient has diffuse rash in the chest and bilateral upper extremities. Patient was started on steroid ointment after which the patient is already seeing some improvement in her rash. Patient is also found to be hyponatremic patient doesn't have any history of congestive heart failure patient is on Lasix for peripheral edema patient presently doesn't have significant edema patient was receiving IV fluids overnight. Patient appears to be mostly bedbound with significant muscle atrophy and bilateral lower extremities. REVIEW OF SYSTEMS: CONSTITUTIONAL: No fever, no malaise, no fatigue. HEENT: No recent visual problems or hearing problems. Denied any sore throat. CARDIOVASCULAR: No chest pain, orthopnea, PND, no palpitations, no syncope. PULMONARY: No shortness of breath, no cough, no hemoptysis. GASTROINTESTINAL: No diarrhea, no nausea, no vomiting, no abdominal pain. NEUROLOGICAL: No headaches, no weakness, no numbness. HEMATOLOGICAL: Denies any bleeding or petechiae. GENITOURINARY: Denies any burning micturition, frequency, or urgency. MUSCULOSKELETAL/RHEUMATOLOGICAL: Denies any joint pain, swelling, or any muscle pain. ENDOCRINE: Denies any polyuria or polydipsia. The rest of the 14-point review of systems is negative. PHYSICAL EXAMINATION: GENERAL: The patient is alert and oriented x3, not in any acute distress. Obese HEENT: Pupils are round and equally reacting to light. EOMI. No scleral icterus. No conjunctival pallor. Normocephalic, atraumatic. No pharyngeal erythema. No thyromegaly. CARDIOVASCULAR: S1 and S2 present. No murmurs, rubs, or gallops. PULMONARY: Chest is clear to auscultation, no wheezing or crackles. ABDOMEN: Soft, nontender, nondistended, normoactive bowel sounds. No palpable organomegaly. MUSCULOSKELETAL: No joint swelling or deformity. EXTREMITIES: No cyanosis, clubbing, or pedal edema. NEUROLOGICAL: Gross neurological examination did not reveal any focal deficits. Patient does have significant weakness which is chronic in bilateral lower extremities patient has significant muscle atrophy in bilateral lower extremities SKIN: ALLERGIC rash diffuse as mentioned above Assessment and plan -ALLERGIC rash etiology is not clear may be related to laundry detergent will discuss with the correction and probably will need to use hypoallergenic laundry detergent. 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, History of Any Multi-Drug Resistant Organisms: None Reported Past Surgical History: Back Surgery, Orthopedic Surgery Additional Past Surgical History / Comment(s): 3 back surgeries; Jaw surgery Past Anesthesia/Blood Transfusion Reactions: No Reported Reaction Additional Past Anesthesia/Blood Transfusion Reaction / Comment(s): No reactions that patient is aware of; never recieved blood Past Psychological History: No Psychological Hx Reported Smoking Status: Never smoker Past Alcohol Use History: None Reported Past Drug Use History: None Reported Medications and Allergies Home Medications Medication Instructions Recorded Confirmed Type Alendronate Sodium [Fosamax] 70 mg PO [place]@59908/22/13 10/22/21 History Fexofenadine HCl [Soniya Allergy] 180 mg PO HS 08/22/13 10/22/21 History Omeprazole [PriLOSEC] 20 mg PO DAILY@59908/22/13 10/22/21 History Acetaminophen Tab [Tylenol] 650 mg PO Q4H PRN 10/22/21 10/22/21 History Acetaminophen [Tylenol 8 Hour] 650 mg PO Q8H 10/22/21 10/22/21 History Albuterol Sulfate [Proventil Hfa] 2 puff INHALATION RT-Q6H PRN 10/22/21 10/22/21 History Aspirin EC [Ecotrin Low Dose] 81 mg PO DAILY@59910/22/21 10/22/21 History Atorvastatin Calcium [Lipitor] 40 mg PO HS 10/22/21 10/22/21 History Benazepril HCl 40 mg PO DAILY 10/22/21 10/22/21 History Calcium Carbonate/Vitamin D3 1 tab PO BID 10/22/21 10/22/21 History [Calcium 500-Vit D3 5 Mcg (200 Iu)] Cholecalciferol [Vitamin D3 (25 50 mcg PO DAILY 10/22/21 10/22/21 History Mcg = 1000 Iu)] Furosemide [Lasix] 40 mg PO BID@0600,1400 10/22/21 10/22/21 History Gabapentin [Neurontin] 100 mg PO Q12H 10/22/21 10/22/21 History Hydrocortisone Cream 1 applic TOPICAL BID 10/22/21 10/22/21 History [Hydrocortisone 2.5% Cream] Lactobacillus Acidophilus 1 cap PO BID 10/22/21 10/22/21 History [Acidophilus Probiotic] Magnesium Oxide 400 mg PO HS 10/22/21 10/22/21 History Methyl Salicylate/Menth/Camph 1 patch TRANSDERM DAILY 10/22/21 10/22/21 History [Salonpas 3.1%-6.0%-10.0% Patch] Multivitamins, Thera [Multivitamin 1 tab PO DAILY 10/22/21 10/22/21 History (formulary)] [place]-3/Dha/Epa/Fish Oil [Fish Oil 2 cap PO HS 10/22/21 10/22/21 History 1,000 mg Softgel] Potassium Chloride [Klor-Con 10 ER] 10 meq PO DAILY 10/22/21 10/22/21 History Sennosides [Senokot] 17.2 mg PO Q12H 10/22/21 10/22/21 History Simethicone [Gas-X] 125 mg PO TID@0900,1400,2100 10/22/21 10/22/21 History allopurinoL [Zyloprim] 100 mg PO DAILY 10/22/21 10/22/21 History diphenhydrAMINE HCL [Benadryl] 25 mg PO TID PRN 10/22/21 10/22/21 History guaiFENesin-DM 100-10MG/5ML 10 ml PO Q4H PRN 10/22/21 10/22/21 History [Robitussin DM] polyethylene glycoL 3350 [Miralax] 17 gm PO DAILY 10/22/21 10/22/21 History tiZANidine [Zanaflex] 2 mg PO TID PRN 10/22/21 10/22/21 History Allergies Allergy/AdvReac Type Severity Reaction Status Date / Time No Known Allergies Allergy Verified 10/22/21 18:48 Physical Exam Vitals: Vital Signs Temp Pulse Pulse Resp BP BP Pulse Ox 10/23/21 08:30 58 L 18 10/23/21 08:00 97.5 F L 58 L 18 147/69 98 10/23/21 06:33 97.8 F 10/23/21 05:48 94.5 F L 10/23/21 04:01 94.5 F L 10/23/21 03:55 93.8 F L 10/23/21 03:25 94.1 F L 10/23/21 02:00 49 L 18 142/59 97 10/22/21 23:23 135/58 10/22/21 22:41 113/71 10/22/21 19:10 98.7 F 58 L 16 152/83 96 10/22/21 18:17 98.4 F 60 16 131/98 96 10/22/21 16:13 97.5 F L 58 L 16 126/114 97 10/22/21 15:52 98.8 F 60 16 114/87 96 10/22/21 14:08 98.2 F 58 L 16 86/43 96 10/22/21 13:50 97.6 F 58 L 16 85/50 97 Intake and Output 10/22/21 10/23/21 10/23/21 22:59 06:59 14:59 Intake Total 325 Balance 325 Intake: Oral 325 Other: Voiding Method External Catheter External Catheter # Voids 3 Weight 127.006 kg Results CBC & Chem 7: 10/23/21 06:26 10/22/21 14:34 Labs: Abnormal Lab Results - Last 24 Hours (Table) 10/22/21 10/22/21 10/22/21 Range/Units 14:34 14:34 14:34 RBC 3.77 L (3.80-5.40) m/uL Hgb (12.0-15.0) g/dL Hct (37.2-46.3) % Immature Gran # (0.00-0.04) X 10*3/uL Eosinophils # 0.8 H (0-0.7) k/uL Sodium 129 L (137-145) mmol/L Chloride 97 L (98-107) mmol/L Creatinine 0.49 L (0.52-1.04) mg/dL Glucose 127 H (74-99) mg/dL Total Bilirubin 0.1 L (0.2-1.3) mg/dL AST 13 L (14-36) U/L Total Protein 5.1 L (6.3-8.2) g/dL Albumin 2.9 L (3.5-5.0) g/dL Urine Appearance Turbid H (Clear) Urine Protein Trace H (Negative) Urine Blood Small H (Negative) Ur Leukocyte Esterase Large H (Negative) Urine RBC 17 H (0-5) /hpf Urine WBC >182 H (0-5) /hpf Urine WBC Clumps Many H (None) /hpf Urine Bacteria Many H (None) /hpf Urine Mucus Rare H (None) /hpf 10/23/21 Range/Units 06:26 RBC 3.43 L (3.80-5.40) m/uL Hgb 10.3 L (12.0-15.0) g/dL Hct 32.2 L (37.2-46.3) % Immature Gran # 0.05 H (0.00-0.04) X 10*3/uL Eosinophils # 0.70 H (0-0.7) k/uL Sodium (137-145) mmol/L Chloride (98-107) mmol/L Creatinine (0.52-1.04) mg/dL Glucose (74-99) mg/dL Total Bilirubin (0.2-1.3) mg/dL AST (14-36) U/L Total Protein (6.3-8.2) g/dL Albumin (3.5-5.0) g/dL Urine Appearance (Clear) Urine Protein (Negative) Urine Blood (Negative) Ur Leukocyte Esterase (Negative) Urine RBC (0-5) /hpf Urine WBC (0-5) /hpf Urine WBC Clumps (None) /hpf Urine Bacteria (None) /hpf Urine Mucus (None) /hpf Thrombosis Risk Factor Assmnt - Choose All That Apply Each Factor Represents 1 point: Obesity (BMI >25) Other Risk Factors: Yes Each Risk Factor Represents 3 Points: Age 75 years or older Thrombosis Risk Factor Assessment Total Risk Factor Score: 4 Thrombosis Risk Factor Assessment Level: Moderate Risk
[2021-10-23 12:36] LABS: ALT 11 U/L (8-44); AST 10 U/L (13-35); Albumin/Globulin Ratio 1.87 (1.60-3.17); Alkaline Phosphatase 60 U/L (41-126); BUN/Creat Ratio 41.02 Ratio (12.00-20.00); Blood Urea Nitrogen 10.5 mg/dL (9.0-27.0); Calcium 8.5 mg/dL (8.7-10.3); Carbon Dioxide 21.7 mmol/L (20.0-27.5); Chloride 104 mmol/L (96-109); Globulin 1.6 g/dL (1.6-3.3); Glucose 91 mg/dL (70-110); Non-African American GFR(CKD) 114.7 (60.0-200.0); Potassium 4.4 mmol/L (3.5-5.5); Sodium 132 mmol/L (135-145); Total Bilirubin <0.15 mg/dL (0.30-1.20); Total Protein 4.6 g/dL (6.2-8.2)
[2021-10-23] MEDS: ATORVASTATIN 40 MG TAB PO SCH (20:58)
[2021-10-23] MEDS: LORATADINE 10 MG TAB PO SCH (20:58)
[2021-10-23] MEDS: MAGNESIUM OXIDE 400 MG TAB PO SCH (20:59)
[2021-10-24] MEDS: SODIUM CHLORIDE 0.9% 1,000 ML IV SCH (05:56)
[2021-10-24] MEDS ORDERED: NON FORMULARY DRUG (Alendronate Sodium [Fosamax] 70 MG Tablet) PO SCH (06:00)
[2021-10-24] MEDS: MULTIVITAMINS, THERA 1 EACH TAB PO SCH (08:18)
[2021-10-24] MEDS: ASPIRIN 81 MG PO SCH (08:18)
[2021-10-24] MEDS: CHOLECALCIFEROL 25 MCG (1000 IU) TABLET PO SCH (08:18)
[2021-10-24] MEDS: SENNOSIDES 8.6 MG TAB PO SCH (08:18)
[2021-10-24] MEDS: GABAPENTIN 100 MG CAP PO SCH (08:18)
[2021-10-24] MEDS: PANTOPRAZOLE 40 MG TABLET PO SCH (08:19)
[2021-10-24] MEDS: LACTOBACILLUS ACIDOPH & BULGAR 1 EACH PACKET PO SCH (08:19)
[2021-10-24] MEDS: CALCIUM CARB-VIT D 500 MG-5 MCG TAB PO SCH (08:19)
[2021-10-24] MEDS: allopurinoL 100 MG TAB PO SCH (08:19)
[2021-10-24] MEDS: polyethylene glycoL 3350 17 GM POWD.PACK PO SCH (08:20)
[2021-10-24] MEDS: SIMETHICONE 80 MG CHEWABLE PO SCH ×2 (08:20→15:27)
[2021-10-24] MEDS: HYDROCORTISONE 1% CREAM 30 GM TUBE TOPICAL SCH (08:21)
[2021-10-24] MEDS ORDERED: ENOXAPARIN 40 MG/0.4 ML SYRINGE SQ SCH (09:00)
[2021-10-24 10:58] LABS: HCT 32.9 % (37.2-46.3); HGB 10.5 g/dL (12.0-15.0); MCHC 31.9 g/dL (32.0-37.0); Mean Platelet Volume 9.8 fL (9.5-12.2); NRBC Per 100 WBC 0 /100 WBCS (0.0-0.0); Platelet Count 209 X 10*3/uL (140-440); RDW 13.4 % (11.5-14.5); WBC 7.34 X 10*3/uL (4.50-10.00)
[2021-10-24 11:18] LABS: African American GFR (CKD) 122.8 (60.0-200.0); Anion Gap 7.8 mmol/L (10.00-18.00); BUN/Creat Ratio 17.3 Ratio (12.00-20.00); Blood Urea Nitrogen 5.6 mg/dL (9.0-27.0); Calcium 8.8 mg/dL (8.7-10.3); Carbon Dioxide 23.4 mmol/L (20.0-27.5); Potassium 4.8 mmol/L (3.5-5.5)
--- NOTE | 2021-10-24 13:22 | P.DS ---
Providers Date of admission: 10/22/21 19:49 Expected date of discharge: 10/24/21 Attending physician: Ryan Alegre Primary care physician: Yoni Polanco Hospital Course: Final diagnosis -ALLERGIC rash etiology is not clear may be related to laundry detergent, recommend hypoallergenic laundry detergent. -Hyponatremia secondary to Lasix, improved -Hypertension -Chronic deconditioning and mostly bedbound -Peripheral neuropathy secondary to chronic back pain -Gastroesophageal reflux disease and history of peptic ulcer disease -Hyperlipidemia -DVT prophylaxis -No code Discharge disposition Patient is being discharged in a stable condition with guarded prognosis to [facility] where she is a resident. Patient will follow-up with Dr. Polanco in the outpatient setting upon discharge. Patient is to keep her dermatology appointment for 10/25/2021 as scheduled. Patient was taking Lasix 40 mg twice daily and recommend taking Lasix 40 mg daily with repeat labs of BMP in the next 2-3 days. Total time taken is greater than 35 minutes. Hospital course This is a 81-year-old female who was recently admitted with possible ALLERGIC reaction to her soap gel and was being closely monitored. Patient with diffuse rash and was initially given a steroid dose and is continued on appointment and recommend continue. Patient was also found to be a bit hyponatremic with a sodium level 132 and has been taking Lasix 40 mg twice daily and recommend to continue with Lasix 40 mg daily and repeat labs in the next few days. Patient reports she does have a dermatology appointment scheduled for tomorrow and recommend keep this appointment. Currently no reports of chest pain, shortness of breath, or palpitations. Patient is afebrile. No reports of nausea or vomiting and patient is tolerating diet. Patient will be discharged to [facility] today. Physical exam: Gen: This is a 81-year-old female awake, alert and oriented 3, well-developed, well nourished, morbidly obese HEENT: Head is atraumatic, normocephalic. Pupils equal, round. Sclerae is anicteric. NECK: Supple. No JVD. No lymphadenopathy. No thyromegaly. LUNGS: Clear to auscultation. No wheezes or rhonchi. No intercostal retractions. HEART: Regular rate and rhythm. No murmur. ABDOMEN: Soft. Bowel sounds are present. No masses. No tenderness. EXTREMITIES: No pedal edema. No calf tenderness. NEUROLOGICAL: Patient is awake, alert and oriented x3. Cranial nerves 2 through 12 are grossly intact. SKIN: Diffuse rash noted on the upper chest and upper extremities with some bullous noted on the underside of the upper extremities with no significant redness or swelling noted. Please refer to medication reconciliation sheet for a list of medications. The impression and plan of care has been dictated by Deirdre Tanner, Nurse Practitioner as directed. Dr. Brenden MD I have performed a history and examination and MDM of this patient, discussed the same with the dictator, and agree with the dictator's assessment and plan as written ,documented as a scribe. Based on total visit time, I have performed more than 50% of the visit. Patient Condition at Discharge: Fair Plan - Discharge Summary Discharge Rx Participant: No New Discharge Prescriptions: Continue Omeprazole [PriLOSEC] 20 mg PO DAILY@0600 Fexofenadine HCl [Soniya Allergy] 180 mg PO HS Alendronate Sodium [Fosamax] 70 mg PO MO@0600 guaiFENesin-DM 100-10MG/5ML [Robitussin DM] 10 ml PO Q4H PRN PRN Reason: Cough Hydrocortisone Cream [Hydrocortisone 2.5% Cream] 1 applic TOPICAL BID tiZANidine [Zanaflex] 2 mg PO TID PRN PRN Reason: Muscle Spasm Albuterol Sulfate [Proventil Hfa] 2 puff INHALATION RT-Q6H PRN PRN Reason: Wheezing Simethicone [Gas-X] 125 mg PO TID@0900,1400,2100 Acetaminophen [Tylenol 8 Hour] 650 mg PO Q8H Calcium Carbonate/Vitamin D3 [Calcium 500-Vit D3 5 Mcg (200 Iu)] 1 tab PO BID Multivitamins, Thera [Multivitamin (formulary)] 1 tab PO DAILY Methyl Salicylate/Menth/Camph [Salonpas 3.1%-6.0%-10.0% Patch] 1 patch TRANSDERM DAILY polyethylene glycoL 3350 [Miralax] 17 gm PO DAILY Benazepril HCl 40 mg PO DAILY Gabapentin [Neurontin] 100 mg PO Q12H #4 cap diphenhydrAMINE HCL [Benadryl] 25 mg PO TID PRN PRN Reason: Itching Acetaminophen Tab [Tylenol] 650 mg PO Q4H PRN PRN Reason: Pain Sennosides [Senokot] 17.2 mg PO Q12H Lactobacillus Acidophilus [Acidophilus Probiotic] 1 cap PO BID Potassium Chloride [Klor-Con 10 ER] 10 meq PO DAILY Magnesium Oxide 400 mg PO HS Osakis-3/Dha/Epa/Fish Oil [Fish Oil 1,000 mg Softgel] 2 cap PO HS Cholecalciferol [Vitamin D3 (25 Mcg = 1000 Iu)] 50 mcg PO DAILY allopurinoL [Zyloprim] 100 mg PO DAILY Atorvastatin Calcium [Lipitor] 40 mg PO HS Aspirin EC [Ecotrin Low Dose] 81 mg PO DAILY@0600 Changed Furosemide [Lasix] 40 mg PO DAILY #0 Discharge Medication List Alendronate Sodium [Fosamax] 70 mg PO MO@0600 08/22/13 [History] Fexofenadine HCl [Soniya Allergy] 180 mg PO HS 08/22/13 [History] Omeprazole [PriLOSEC] 20 mg PO DAILY@0600 08/22/13 [History] Acetaminophen Tab [Tylenol] 650 mg PO Q4H PRN 10/22/21 [History] Acetaminophen [Tylenol 8 Hour] 650 mg PO Q8H 10/22/21 [History] Albuterol Sulfate [Proventil Hfa] 2 puff INHALATION RT-Q6H PRN 10/22/21 [History] Aspirin EC [Ecotrin Low Dose] 81 mg PO DAILY@0600 10/22/21 [History] Atorvastatin Calcium [Lipitor] 40 mg PO HS 10/22/21 [History] Benazepril HCl 40 mg PO DAILY 10/22/21 [History] Calcium Carbonate/Vitamin D3 [Calcium 500-Vit D3 5 Mcg (200 Iu)] 1 tab PO BID 10/22/21 [History] Cholecalciferol [Vitamin D3 (25 Mcg = 1000 Iu)] 50 mcg PO DAILY 10/22/21 [History] Hydrocortisone Cream [Hydrocortisone 2.5% Cream] 1 applic TOPICAL BID 10/22/21 [History] Lactobacillus Acidophilus [Acidophilus Probiotic] 1 cap PO BID 10/22/21 [History] Magnesium Oxide 400 mg PO HS 10/22/21 [History] Methyl Salicylate/Menth/Camph [Salonpas 3.1%-6.0%-10.0% Patch] 1 patch TRANSDERM DAILY 10/22/21 [History] Multivitamins, Thera [Multivitamin (formulary)] 1 tab PO DAILY 10/22/21 [History] [place]akis-3/Dha/Epa/Fish Oil [Fish Oil 1,000 mg Softgel] 2 cap PO HS 10/22/21 [History] Potassium Chloride [Klor-Con 10 ER] 10 meq PO DAILY 10/22/21 [History] Sennosides [Senokot] 17.2 mg PO Q12H 10/22/21 [History] Simethicone [Gas-X] 125 mg PO TID@0900,1400,2100 10/22/21 [History] allopurinoL [Zyloprim] 100 mg PO DAILY 10/22/21 [History] diphenhydrAMINE HCL [Benadryl] 25 mg PO TID PRN 10/22/21 [History] guaiFENesin-DM 100-10MG/5ML [Robitussin DM] 10 ml PO Q4H PRN 10/22/21 [History] polyethylene glycoL 3350 [Miralax] 17 gm PO DAILY 10/22/21 [History] tiZANidine [Zanaflex] 2 mg PO TID PRN 10/22/21 [History] Furosemide [Lasix] 40 mg PO DAILY #0 10/24/21 [Rx] Gabapentin [Neurontin] 100 mg PO Q12H #4 cap 10/24/21 [Rx] Follow up Appointment(s)/Referral(s): Yoni Polanco MD [Primary Care Provider] - 1-2 days Ambulatory/Diagnostic Orders: Basic Metabolic Panel [LAB.AMB] Time Frame: 3 Days, Location: None Selected Activity/Diet/Wound Care/Special Instructions: Patient is returning to [facility] on the [facility] Activity as tolerated Continue with current medications and continue with Lasix 40 mg daily Recommend repeat labs to monitor electrolytes in 2-3 days of BMP Keep dermatology appointment that is scheduled for tomorrow Discharge Disposition: TRANSFER TO SNF/ECF
[2021-10-24 15:27] VITALS: BP 129/74; PULSE 52; RESP 16; TEMP 98
== END 2021-10-24 20:15 | DRG 607 ==
LOC: EC 13:47 → 4SSUR 19:49
PROVIDERS: ADMIT Hospitalist; ATTEND Hospitalist
DX: L24.0 Irritant contact dermatitis due to detergents (principal); E87.1 Hypo-osmolality and hyponatremia; N39.0 Urinary tract infection, site not specified; B95.1 Streptococcus, group B, as the cause of diseases classified elsewhere; Z20.822 Contact with and (suspected) exposure to COVID-19; T50.1X5A Adverse effect of loop [high-ceiling] diuretics, initial encounter; E78.5 Hyperlipidemia, unspecified; E86.0 Dehydration; G62.9 Polyneuropathy, unspecified; I95.9 Hypotension, unspecified; G89.29 Other chronic pain; I10 Essential (primary) hypertension; K21.9 Gastro-esophageal reflux disease without esophagitis; L29.9 Pruritus, unspecified; Z79.82 Long term (current) use of aspirin; Z79.83 Long term (current) use of bisphosphonates; Z79.899 Other long term (current) drug therapy; Z86.73 Personal history of transient ischemic attack (TIA), and cerebral infarction without residual deficits; Z87.11 Personal history of peptic ulcer disease; X58.XXXA Exposure to other specified factors, initial encounter
CPT/HCPCS: 36415; 71046; 80048; 80053; 81001; 82272; 83605; 83735; 84484; 85025; 85027; 85610; 85652; 85730; 87040; 87077; 87086; 87186; 87502; 87635; 93005; 94640; 96361; 96374; 99284

== ENCOUNTER 2022-08-11 07:39 | Day surgery (SDC) | payer MEDICARE, OTHER ==
[2022-08-10 09:30] VITALS: BMI 52.9
[~2022-08-11 07:39] MED LIST: LACTATED RINGERS 1,000 ML IV SCH
[2022-08-11 08:36] VITALS: RESP 16; TEMP 97
[2022-08-11] MEDS ORDERED: PROPOFOL 10 MG/ML 20 ML VIAL IV ONE (09:38)
[2022-08-11] MEDS ORDERED: LIDOCAINE 2% INJ 20 MG/ML (2 ML VIAL) ONE (09:38)
--- NOTE | 2022-08-11 09:51 | P.PCN ---
Date of Procedure: 08/11/22 Procedure(s) Performed: BRIEF HISTORY: Patient is a 82-year-old, pleasant, 8 female scheduled for an upper endoscopy as a part of evaluation of long-standing history of GERD and intermittent dysphagia to solids. PROCEDURE PERFORMED: Esophagogastroduodenoscopy with biopsy. PREOPERATIVE DIAGNOSIS: Long-standing history of GERD and intermittent dysphagia to solids. IV sedation per anesthesia. PROCEDURE: After informed consent was obtained, the patient was brought into the endoscopy unit. IV sedation was administered by Anesthesia under continuous monitoring. Initially the Olympus GIF-140 video endoscope was inserted into the mouth. Esophagus intubated without any difficulty. It was gradually advanced into the stomach and duodenum and carefully examined. The bulb and the second part of the duodenum appeared normal. The scope at this time was withdrawn to the stomach, adequately insufflated with air, and upon careful examination, mucosa of the antrum, body, cardia and the fundus appeared normal. The scope was then withdrawn into the esophagus. The GE junction was located at 39 cm from the incisors. There was circumferential erythema the GE junction consistent with LA grade a reflux esophagitis. The rest of the esophagus appeared normal. Biopsies were done from the distal esophagus. There were no erosions or ulcerations seen and the patient tolerated the procedure well. IMPRESSION: 1. Normal-appearing esophagus with no evidence of esophageal stricture. 2. Circumferential erythema the GE junction consistent with LA grade A reflux. RECOMMENDATIONS: The findings of this examination were discussed with the patient as well as a family. She was advised to with the biopsy results and continue with Prilosec 20 mg daily and follow antireflux measures..
[2022-08-11 10:10] VITALS: BP 139/58; PULSE 59
== END 2022-08-11 10:24 | disposition home or self-care (01) ==
LOC: ORWHC2ENDO 07:39
PROVIDERS: ATTEND Internal Medicine Gastroenterology
DX: K21.9 Gastro-esophageal reflux disease without esophagitis (principal); I10 Essential (primary) hypertension; Z79.82 Long term (current) use of aspirin; Z79.899 Other long term (current) drug therapy; Z98.890 Other specified postprocedural states
CPT/HCPCS: 88305; 43239; J2704; J2001

== ENCOUNTER → 2022-09-21 | Outpatient (CLI) | payer MEDICARE, OTHER ==
--- NOTE | 2022-09-21 16:27 | MM ---
Reason for Exam: Additional evaluation requested from abnormal screening. Last screening mammogram was performed 12 month(s) ago. Patient History: Menarche at age 14. Patient has no children. Postmenopausal. Maternal cousin had breast cancer, age 50. Sister had breast cancer, age 58. Risk Values: Brittany 5 year model risk: 3.2%. NCI Lifetime model risk: 5.0%. Prior Study Comparison: 09/13/2020 Bilateral Screening Mammogram, [facility]. 09/14/2021 Right MG 3D work up w/cad RT, [facility]. 09/14/2021 Bilateral MG 3D screening mammo w/cad, [facility]. Tissue Density: Left: The breast tissue is heterogeneously dense. This may lower the sensitivity of mammography. Findings: Analyzed By CAD. The spot 3-D MLO view of the nipple in profile. A nodular asymmetric density questioned on the screening exam inferiorly disperses on this additional view. Overall Assessment: Negative, BI-RAD 1 Management: Screening Mammogram of both breasts in 1 year. See note below in regards to patient's increased 5 year Brittany score. Results were given to the patient verbally at the time of exam. Patient should continue monthly self-breast exams. A clinical breast exam by your physician is recommended on an annual basis. This exam should not preclude additional follow-up of suspicious palpable abnormalities. Note on Brittany scores and lifetime risk: 1. A Brittany score greater than 3% is considered moderate risk. If this is the case, consider specialist referral to assess eligibility for a risk reducing agent. 2. If overall lifetime risk for the development of breast cancer is 20% or higher, the patient may qualify for future screening with alternating mammogram and breast MRI. Electronically signed and approved by: Jose Aaron M.D. Radiologist
--- NOTE | 2022-09-21 16:27 | MM ---
Reason for Exam: Screening (asymptomatic). Last screening mammogram was performed 12 month(s) ago. Patient History: Menarche at age 14. Patient has no children. Postmenopausal. Maternal cousin had breast cancer, age 50. Sister had breast cancer, age 58. Risk Values: Brittany 5 year model risk: 3.2%. NCI Lifetime model risk: 5.0%. Prior Study Comparison: 09/13/2020 Bilateral Screening Mammogram, [facility]. 09/14/2021 Right MG 3D work up w/cad RT, [facility]. 09/14/2021 Bilateral MG 3D screening mammo w/cad, [facility]. Tissue Density: The breast tissue is heterogeneously dense. This may lower the sensitivity of mammography. Findings: Analyzed By CAD. Nodular asymmetric density inferior left MLO view abdomen anterior to middle depth. We note that the nipple is out of profile. The technologist indicates that 3 techs were needed to image this patient and these were the best possible images. Otherwise, no significant change. Overall Assessment: Incomplete: need additional imaging evaluation, BI-RAD 0 Management: Special View Mammogram of the left breast. [facility] will attempt to contact patient to return for supplemental views and ultrasound if indicated. Electronically signed and approved by: Jose Aaron M.D. Radiologist
== END | disposition home or self-care (01) ==
LOC: RADMAMWWP 09:24
PROVIDERS: ATTEND Family Medicine
DX: Z12.31 Encounter for screening mammogram for malignant neoplasm of breast (principal); Z78.0 Asymptomatic menopausal state; Z80.3 Family history of malignant neoplasm of breast
CPT/HCPCS: 77061; 77063; 77065; 77067

== ENCOUNTER → 2023-09-27 | Outpatient (CLI) | payer MEDICARE, OTHER ==
--- NOTE | 2023-09-27 08:51 | MM ---
Reason for Exam: Screening (asymptomatic). Last mammogram was performed 1 year(s) and 1 month(s) ago. Patient History: Menarche at age 14. Patient has no children. Postmenopausal. Maternal cousin had breast cancer, age 50. Sister had breast cancer, age 58. Risk Values: Brittany 5 year model risk: 3.2%. NCI Lifetime model risk: 4.6%. Prior Study Comparison: 09/14/2021 Right MG 3D work up w/cad RT, [facility]. 09/21/2022 Left MG 3D work up w/cad LT, [facility]. 09/21/2022 Bilateral MG 3D screening mammo w/cad, [facility]. Tissue Density: The breasts are heterogeneously dense, which may obscure small masses. Findings: Analyzed By CAD. There is no suspicious group of microcalcifications or new suspicious mass in either breast. Overall Assessment: Benign, BI-RAD 2 Management: Screening Mammogram of both breasts in 1 year. . Patient should continue monthly self-breast exams. A clinical breast exam by your physician is recommended on an annual basis. This exam should not preclude additional follow-up of suspicious palpable abnormalities. Note on Brittany scores and lifetime risk: 1. A Brittany score greater than 3% is considered moderate risk. If this is the case, consider specialist referral to assess eligibility for a risk reducing agent. 2. If overall lifetime risk for the development of breast cancer is 20% or higher, the patient may qualify for future screening with alternating mammogram and breast MRI. Electronically signed and approved by: Dominic Farris M.D. Radiologis
== END | disposition home or self-care (01) ==
LOC: RADMAMWWP 08:15
PROVIDERS: ATTEND Family Medicine
DX: Z12.31 Encounter for screening mammogram for malignant neoplasm of breast (principal); R92.333 Mammographic heterogeneous density, bilateral breasts; Z78.0 Asymptomatic menopausal state; Z80.3 Family history of malignant neoplasm of breast
CPT/HCPCS: 77063; 77067

== ENCOUNTER 2024-04-23 06:56 | Day surgery (SDC) | payer MEDICARE, OTHER ==
[~2024-04-23 06:56] MED LIST changes: +DEXAMETHASONE SOD PHOSPHATE 4 MG/ML 1 ML VIAL IV ONE; -LACTATED RINGERS 1,000 ML IV SCH; +ONDANSETRON 4 MG/2 ML VIAL IVP ONE
[2024-04-23 07:54] VITALS: TEMP 96.9
[2024-04-23] MEDS: IV FLUID CONTINUATION 1,000 ML IV ONE (08:00)
[2024-04-23] MEDS: LACTATED RINGERS 1,000 ML IV SCH (08:02)
[2024-04-23] MEDS ORDERED: PROPOFOL 10 MG/ML 20 ML VIAL IV ONE (08:40)
[2024-04-23] MEDS ORDERED: LIDOCAINE 1% INJ 10MG/ML (20 ML MDV) ONE (08:40)
--- NOTE | 2024-04-23 09:19 | P.PCN ---
Date of Procedure: 04/23/24 Procedure(s) Performed: Brief history: Patient is a pleasant 83-year-old white female scheduled for an elective upper endoscopy as well as colonoscopy as a part of evaluation of iron deficiency anemia. She also has longstanding history of GERD. Procedure performed: Esophagogastroduodenoscopy with biopsy Colonoscopy Preoperative diagnosis: Longstanding history of GERD Iron deficiency anemia Anesthesia: MAC Procedure: After informed consent was obtained from the patient was brought into the endoscopy unit and IV sedation was administered by anesthesia under continuous monitoring. Initially upper endoscopy was done. The Olympus GF 160 video endoscope was inserted inserted into the mouth and esophagus intubated without any difficulty and was gradually advanced into the stomach and duodenum and carefully examined. The bulb and second part of the duodenum appeared normal. The scope was then withdrawn into the stomach adequately insufflated with air and upon careful examination the antrum had mild antral gastritis and biopsies were done from this area. Mucosa of the body, cardia and fundus appeared normal. The scope was then withdrawn into the esophagus. The GE junction was located at 40 cm to the incisors. It appeared regular with no erythema erosions or ulcerations. Rest of the esophagus appeared normal. It was some white specks noted in the mid and proximal esophagus and biopsies were done to evaluate for Mariah esophagitis. Patient tolerated the procedure well. At this time the patient continued to remain sedation. Initial digital rectal examination was normal. Olympus CF 160 video colonoscope was then inserted into the rectum and gradually advanced to the cecum with severe difficulty. Careful examination was performed as the scope was gradually being withdrawn. The prep was fair.. The cecum, ascending colon, transverse colon, descending colon, sigmoid colon and rectum appeared normal. Retroflexion was performed in the rectum and no lesions were noted. Patient tolerated the procedure well. Impression: 1. Upper endoscopy revealed whitish plaques in the esophagus suspicious for Mariah esophagitis, mild antral gastritis 2. Colonoscopy was within normal limits with no evidence of colorectal neoplasia Recommendations: Findings of this examination were discussed with the patient as well as her family. She was advised to follow with the biopsy results. Up in the office in 2 weeks.
[2024-04-23 10:15] VITALS: BP 136/83; PULSE 61; RESP 18
== END 2024-04-23 10:48 | disposition home or self-care (01) ==
LOC: ORWHC2ENDO 06:56
PROVIDERS: ATTEND Internal Medicine Gastroenterology
DX: K29.50 Unspecified chronic gastritis without bleeding (principal); K21.9 Gastro-esophageal reflux disease without esophagitis; D50.9 Iron deficiency anemia, unspecified; J44.9 Chronic obstructive pulmonary disease, unspecified; I10 Essential (primary) hypertension; E78.5 Hyperlipidemia, unspecified; Z86.73 Personal history of transient ischemic attack (TIA), and cerebral infarction without residual deficits; Z79.02 Long term (current) use of antithrombotics/antiplatelets; Z79.899 Other long term (current) drug therapy
CPT/HCPCS: 45378; 43239; J2003; J2704; 88305

== ENCOUNTER 2024-08-16 01:56 | Inpatient (IN) | payer MEDICARE, OTHER ==
--- NOTE | 2024-08-16 02:00 | ED ---
SOB HPI - General Stated Complaint: FRAN Time Seen by Provider: 08/16/24 01:59 Source: RN notes reviewed, old records reviewed Mode of arrival: EMS Limitations: altered mental status, physical limitation - History of Present Illness Initial Comments: This is a 84-year-old female to ER from [facility] for increasing dyspnea and shortness of breath. Patient admits to shortness of breath and in the ER, patient also had x-ray showing significant pleural effusion MD Complaint: shortness of breath, cough -: days(s) Severity: moderate Severity scale (1-10): 5 Consistency: constant Improves With: nothing Worsens With: nothing Known History Of: congestive heart failure Context: recent URI, recent illness Associated Symptoms: denies other symptoms - Related Data Home Medications Medication Instructions Recorded Confirmed Alendronate Sodium [Fosamax] 70 mg PO MO@59908/22/13 08/16/24 Fexofenadine HCl [Soniya Allergy] 180 mg PO DAILY@89908/22/13 08/16/24 Aspirin EC [Ecotrin Low Dose] 81 mg PO DAILY@59910/22/21 08/16/24 Atorvastatin Calcium [Lipitor] 40 mg PO HS@209910/22/21 08/16/24 Lactobacillus Acidophilus 1 cap PO BID@899,209910/22/21 08/16/24 [Acidophilus Probiotic] Magnesium Oxide 400 mg PO HS@209910/22/21 08/16/24 Multivitamins, Thera [Multivitamin 1 tab PO DAILY@89910/22/21 08/16/24 (formulary)] Sennosides [Senokot] 17.2 mg PO Q12HR@09,209910/22/21 08/16/24 allopurinoL [Zyloprim] 100 mg PO DAILY@89910/22/21 08/16/24 polyethylene glycoL 3350 [Miralax] 17 gm PO DAILY@89908/10/22 08/16/24 Budesonide 0.5 mg INHALATION RT-BID@0900,209904/21/24 08/16/24 Carbamide Peroxide [Debrox Otic] 2 drops BOTH EARS HS@209904/21/24 08/16/24 Collagenase [Santyl Ointment] 1 applic TOPICAL HS 04/21/24 08/16/24 Ezetimibe [Zetia] 10 mg PO HS@209904/21/24 08/16/24 Ferrous Sulfate [Feosol] 325 mg PO Q12HR@0900,209904/21/24 08/16/24 Fluticasone Propionate 2 spr INHALATION DAILY@89904/21/24 08/16/24 [Fluticasone Propionate [place] 50 mcg Nasal [place]] Ipratropium-Albuterol Nebulize 3 ml INHALATION RT-Q6H 04/21/24 08/16/24 [Duoneb 0.5 mg-3 mg/3 ml Soln] carvediloL [Coreg] 3.125 mg PO BID@0900,209904/21/24 08/16/24 Acetaminophen Tab [Tylenol] 650 mg PO Q4H PRN 08/16/24 08/16/24 Ascorbic Acid [Vitamin C] 500 mg PO Q12HR@0900,209908/16/24 08/16/24 Biotene Dry Mouth/Throat Liquid 15 ml PO Q8HR@0600,1400,2200 08/16/24 08/16/24 Cholecalciferol [Vitamin D3 (10 10 mcg PO Q12HR@0900,209908/16/24 08/16/24 Mcg = 400 Iu)] Collagenase [Santyl Ointment] 1 applic TOPICAL DAILY PRN 08/16/24 08/16/24 Furosemide [Lasix] 20 mg PO BID@0600,1700 08/16/24 08/16/24 Gabapentin [Neurontin] 100 mg PO Q12HR@0900,209908/16/24 08/16/24 Levofloxacin [Levaquin] 750 mg PO DIRECTED@119908/16/24 08/16/24 Melatonin 3 mg PO HS@209908/16/24 08/16/24 Omeprazole 20 mg PO DAILY@89908/16/24 08/16/24 Oyster Shell Calcium 500mg 500 mg PO Q12HR@0900,209908/16/24 08/16/24 Potassium Chloride ER [K-Dur 20] 20 meq PO HS@209908/16/24 08/16/24 Z-Guard 1 applic TOPICAL DAILY PRN 08/16/24 08/16/24 Z-Guard 1 applic TOPICAL Q12H 08/16/24 08/16/24 guaiFENesin [Mucinex] 1,200 mg PO Q12HR@0900,2100 08/16/24 08/16/24 metOLazone [Zaroxolyn] 5 mg PO DAILY@1200 08/16/24 08/16/24 Allergies Allergy/AdvReac Type Severity Reaction Status Date / Time No Known Allergies Allergy Verified 08/16/24 09:32 Review of Systems ROS Statement: Those systems with pertinent positive or pertinent negative responses have been documented in the HPI. ROS Other: All systems not noted in ROS Statement are negative. 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 History of Any Multi-Drug Resistant Organisms: ESBL Date of last positivie culture/infection: 12/15/22 MDRO Source:: Urine Past Surgical History: Back Surgery, Orthopedic Surgery Additional Past Surgical History / Comment(s): 3 back surgeries; Jaw surgery Past Anesthesia/Blood Transfusion Reactions: No Reported Reaction Additional Past Anesthesia/Blood Transfusion Reaction / Comment(s): No reactions that patient is aware of; never recieved blood Smoking Status: Never smoker General Exam General appearance: alert, in no apparent distress Head exam: Present: atraumatic, normocephalic, normal inspection Eye exam: Present: normal appearance, PERRL, EOMI. Absent: scleral icterus, conjunctival injection, periorbital swelling ENT exam: Present: normal exam, mucous membranes moist Neck exam: Present: normal inspection. Absent: tenderness, meningismus, lymphadenopathy Respiratory exam: Present: normal lung sounds bilaterally. Absent: respiratory distress, wheezes, rales, rhonchi, stridor Cardiovascular Exam: Present: regular rate, normal rhythm, normal heart sounds. Absent: systolic murmur, diastolic murmur, rubs, gallop, clicks GI/Abdominal exam: Present: soft, normal bowel sounds. Absent: distended, tenderness, guarding, rebound, rigid Extremities exam: Present: normal inspection, full ROM, normal capillary refill. Absent: tenderness, pedal edema, joint swelling, calf tenderness Back exam: Present: normal inspection Neurological exam: Present: alert, oriented X3, CN II-XII intact Psychiatric exam: Present: normal affect, normal mood Skin exam: Present: warm, dry, intact, normal color. Absent: rash Course Vital Signs 08/16/24 08/16/24 08/16/24 02:25 02:52 03:01 Temperature 98.8 F Pulse Rate 72 68 65 Respiratory 18 Rate Blood Pressure 136/74 O2 Sat by Pulse 93 L Oximetry Fraction of Inspired Oxygen (FIO2) 08/16/24 08/16/24 08/16/24 05:17 06:17 06:38 Temperature Pulse Rate 60 100 64 Respiratory 18 Rate Blood Pressure 116/68 O2 Sat by Pulse 92 L Oximetry Fraction of Inspired Oxygen (FIO2) 08/16/24 08/16/24 08/16/24 07:52 11:02 12:46 Temperature 98.9 F Pulse Rate 60 56 L 70 Respiratory 16 16 20 Rate Blood Pressure 119/62 111/63 127/67 O2 Sat by Pulse 97 98 97 Oximetry Fraction of Inspired Oxygen (FIO2) 08/16/24 08/16/24 08/16/24 13:30 13:55 14:03 Temperature Pulse Rate 68 67 68 Respiratory 25 H Rate Blood Pressure 133/80 O2 Sat by Pulse 89 L 88 L 78 L Oximetry Fraction of Inspired Oxygen (FIO2) 08/16/24 08/16/24 08/16/24 14:18 14:29 14:30 Temperature Pulse Rate 64 61 63 Respiratory 23 Rate Blood Pressure O2 Sat by Pulse 97 Oximetry Fraction of 100 Inspired Oxygen (FIO2) 08/16/24 08/16/24 08/16/24 15:00 15:35 17:14 Temperature Pulse Rate 59 L 66 Respiratory 21 27 H Rate Blood Pressure 137/72 145/74 O2 Sat by Pulse 98 96 Oximetry Fraction of 80 Inspired Oxygen (FIO2) 08/16/24 08/16/24 08/16/24 18:00 18:07 18:21 Temperature Pulse Rate 68 62 67 Respiratory 17 Rate Blood Pressure 143/87 O2 Sat by Pulse 96 Oximetry Fraction of 60 Inspired Oxygen (FIO2) 08/16/24 08/16/24 19:30 20:39 Temperature 98.0 F Pulse Rate 72 68 Respiratory 24 24 Rate Blood Pressure 129/92 121/90 O2 Sat by Pulse 90 L 91 L Oximetry Fraction of Inspired Oxygen (FIO2) - Reevaluation(s) Reevaluation #1: 08/16/24 02:00 Medical records reviewed Reevaluation #2: 08/16/24 04:58 No real improvement in symptoms here in the ER Reevaluation #3: 08/16/24 04:58 Patient informed of results questions answered Reevaluation #4: Was pt. sent in by a medical professional or institution (, [facility]ICK, FIREPERSON, urgent care, hospital, or usp...) When possible be specific @ -no Did you speak to anyone other than the patient for history (EMS, parent, family, police, friend...)? What history was obtained from this source @ -no Did you review nursing and triage notes (agree or disagree)? Why? @ -agree Are old charts reviewed (outside hosp., previous admission, EMS record, old EKG, old radiological studies, urgent care reports/EKG's, usp records)? Report findings @ -yes Differential Diagnosis (chest pain, altered mental status, abdominal pain women, abdominal pain men, vaginal bleeding, weakness, fever, dyspnea, syncope, headache, dizziness, GI bleed, back pain, seizure, CVA, palpatations, mental health, musculoskeletal)? @ -prior EKG interpreted by me (3pts min.). @ -yes X-rays interpreted by me (1pt min.). @ -yes positive for pneumonia CT interpreted by me (1pt min.). @ -no U/S interpreted by me (1pt. min.). @ -no What testing was considered but not performed or refused? (CT, X-rays, U/S, labs)? Why? @ -none What meds were considered but not given or refused? Why? @ -none Did you discuss the management of the patient with other professionals (professionals i.e. NICK Tavarez, FIREPERSON, lab, RT, psych nurse, social media sr strategy manager, derrick boat lever operator, teacher, minesweeping officer, family caseworker)? Give summary @ -no Was smoking cessation discussed for >3mins.? @ -no Was critical care preformed (if so, how long)? @ -no Were there social determinants of health that impacted care today? How? (Homelessness, low income, unemployed, alcoholism, drug addiction, transportation, low edu. Level, literacy, decrease access to med. care, residential, rehab)? @ -none Was there de-escalation of care discussed even if they declined (Discuss DNR or withdrawal of care, Hospice)? DNR status @ -no What co-morbidities impacted this encounter? (DM, HTN, Smoking, COPD, CAD, Cancer, CVA, ARF, Chemo, Hep., AIDS, mental health diagnosis, sleep apnea, morbid obesity)? @ -none Was patient admitted / discharged? Hospital course, mention meds given and route, prescriptions, significant lab abnormalities, going to OR and other pertinent info. @ - 84 female to be admitted for shortness of breath with hypoxia found to have pneumonia on x-ray Admitted Undiagnosed new problem with uncertain prognosis? @ -no Drug Therapy requiring intensive monitoring for toxicity (Heparin, Nitro, Insulin, Cardizem)? @ -no Were any procedures done? @ -no Diagnosis/symptom? @ -Pneumonia with dyspnea Acute, or Chronic, or Acute on Chronic? @ -Acute Uncomplicated (without systemic symptoms) or Complicated (systemic symptoms)? @ -Complicated Side effects of treatment? @ -no Exacerbation, Progression, or Severe Exacerbation? @ -exacerbation Poses a threat to life or bodily function? How? (Chest pain, USA, MS, pneumonia, PE, COPD, DKA, ARF, appy, cholecystitis, CVA, Diverticulitis, Homicidal, Suicidal, threat to staff... and all critical care pts) @ -yes extremes of age Reevaluation #5: Differential Dyspnea: Coronary syndrome, arrhythmia, tamponade, asthma, COPD, pulmonary embolism, pneumonia, pneumothorax, pulmonary effusion, anaphylaxis, diabetic ketoacidosis, flailed chest, pulmonary contusion, diaphragmatic rupture, anemia, neuromuscular, this is not meant to be an all-inclusive list. Differential Weakness: Hypoglycemia, shock, sepsis, hyponatremia, anemia, infection, MS, ETOH, adverse medicine reaction, overdose, stroke, this is not meant to be an all-inclusive list. - Consultations Consultation #1: Spoke with [facility] who agrees to admit this patient Medical Decision Making - Medical Decision Making 84 female to be admitted for shortness of breath with hypoxia found to have pneumonia on x-ray - Lab Data Result diagrams: 08/23/24 07:52 08/23/24 07:52 Lab Results 08/16/24 08/16/24 08/16/24 Range/Units 00:00 02:44 02:44 PT 13.6 H (10.0-12.5) sec INR 1.3 H (<1.2) APTT 24.0 (22.0-30.0) sec Sodium (137-145) mmol/L Potassium (3.5-5.1) mmol/L Chloride (98-107) mmol/L Carbon Dioxide (22-30) mmol/L Anion Gap mmol/L BUN (7-17) mg/dL Creatinine (0.52-1.04) mg/dL Est GFR (CKD-EPI)AfAm (>60 ml/min/1.73 sqM) Est GFR (CKD-EPI)NonAf (>60 ml/min/1.73 sqM) Glucose (74-99) mg/dL Plasma Lactic Acid Donald 0.8 (0.7-2.0) mmol/L Calcium (8.4-10.2) mg/dL Magnesium (1.6-2.3) mg/dL Total Bilirubin (0.2-1.3) mg/dL AST (14-36) U/L ALT (4-34) U/L Alkaline Phosphatase (38-126) U/L NT-Pro-B Natriuret Pep pg/mL Total Protein (6.3-8.2) g/dL Albumin (3.5-5.0) g/dL Procalcitonin (0.02-0.50) ng/mL Stool Occult Blood Negative (Negative) 08/16/24 08/16/24 Range/Units 03:02 03:02 PT (10.0-12.5) sec INR (<1.2) APTT (22.0-30.0) sec Sodium 127 L (137-145) mmol/L Potassium 3.6 (3.5-5.1) mmol/L Chloride 81 L (98-107) mmol/L Carbon Dioxide 40 H (22-30) mmol/L Anion Gap 6 mmol/L BUN 14 (7-17) mg/dL Creatinine 0.38 L (0.52-1.04) mg/dL Est GFR (CKD-EPI)AfAm >90 (>60 ml/min/1.73 sqM) Est GFR (CKD-EPI)NonAf >90 (>60 ml/min/1.73 sqM) Glucose 95 (74-99) mg/dL Plasma Lactic Acid Donald (0.7-2.0) mmol/L Calcium 9.5 (8.4-10.2) mg/dL Magnesium 2.2 (1.6-2.3) mg/dL Total Bilirubin 0.5 (0.2-1.3) mg/dL AST 19 (14-36) U/L ALT 17 (4-34) U/L Alkaline Phosphatase 100 (38-126) U/L NT-Pro-B Natriuret Pep 5540 pg/mL Total Protein 5.6 L (6.3-8.2) g/dL Albumin 2.9 L (3.5-5.0) g/dL Procalcitonin <0.20 (0.02-0.50) ng/mL Stool Occult Blood (Negative) - EKG Data -: EKG Interpreted by Me (EKG is sinus 70 CO 235 QRS 95 QTc 376) - Radiology Data Radiology results: report reviewed (Chest x-ray is positive for multilobar pneumonia), image reviewed Disposition Clinical Impression: Acute exacerbation of chronic obstructive pulmonary disease, Acute pulmonary edema, Community acquired pneumonia, Hypoxia Disposition: ADMITTED IP TO THIS HOSP Condition: Serious Is patient prescribed a controlled substance at d/c from ED?: No Time of Disposition: 04:45
[2024-08-16] MEDS: IPRATROPIUM-ALBUTEROL 3 ML NEB INHALATION STA ×2 (02:48→06:16)
[2024-08-16 03:07] LABS: INR 1.3 (<1.2); Partial Thromboplastin Time 24.0 sec (22.0-30.0); Prothrombin Time 13.6 sec (10.0-12.5)
--- NOTE | 2024-08-16 04:36 | XR ---
EXAM: XR Chest, 1 View CLINICAL HISTORY: ITS.REASON XR Reason: difficulty breathing TECHNIQUE: Frontal view of the chest. COMPARISON: No relevant prior studies available. FINDINGS: Lungs: Bilateral lower lung consolidations, consistent with multilobar pneumonia. Pleural space: Unremarkable. No pneumothorax. Heart: Cardiomegaly. Mediastinum: Unremarkable. Bones/joints: Unremarkable. IMPRESSION: Bilateral lower lung consolidations, consistent with multilobar pneumonia.
[2024-08-16] MEDS ORDERED: PNEUMONIA PROTOCOL UTILIZED 1 EACH MISC PO PRN (04:51)
[2024-08-16 05:19] LABS: Basophils # (A) 0.03 10*3/uL (0.00-0.10); Basophils % (A) 0.2 %; Eosinophils # (A) 0.00 10*3/uL (0.04-0.35); Eosinophils % (A) 0.0 %; HCT 29.9 % (37.2-46.3); HGB 9.5 g/dL (12.0-15.0); Lymphocytes # (A) 0.67 10*3/uL (0.90-5.00); Lymphocytes % (A) 5.4 %; MCH 28.4 pg (27.0-32.0); MCHC 31.8 g/dL (32.0-37.0); MCV 89.3 fL (80.0-97.0); Monocytes # (A) 0.69 10*3/uL (0.20-1.00); Monocytes % (A) 5.5 %; Neutrophils # (A) 10.90 10*3/uL (1.80-7.70); Neutrophils % (A) 87.2 %; Platelet Count 391 10*3/uL (140-440); RBC 3.35 10*6/uL (4.10-5.20); RDW 14.0 % (11.5-14.5); WBC 12.50 10*3/uL (4.50-10.00)
[2024-08-16] MEDS: SODIUM CHLORIDE 0.9% 1,000 ML IV SCH (05:43)
[2024-08-16 05:45] LABS: ALT 17 U/L (4-34); African American GFR (CKD) >90 (>60 ml/min/1.73 sqM); Albumin 2.9 g/dL (3.5-5.0); Anion Gap 6 mmol/L; Blood Urea Nitrogen 14 mg/dL (7-17); Calcium 9.5 mg/dL (8.4-10.2); Carbon Dioxide 40 mmol/L (22-30); Chloride 81 mmol/L (98-107); Glucose 95 mg/dL (74-99); Non-African American GFR(CKD) >90 (>60 ml/min/1.73 sqM); Sodium 127 mmol/L (137-145); Total Protein 5.6 g/dL (6.3-8.2)
[2024-08-16 05:54] LABS: NT-Pro-B-Type Natriuretic Pept 5540 pg/mL
[2024-08-16] MEDS: AZITHROMYCIN 500 MG in SODIUM CHLORIDE 0.9% 250 ML IVPB STA (06:05)
[2024-08-16 06:10] LABS: AST 19 U/L (14-36); Alkaline Phosphatase 100 U/L (38-126); Magnesium 2.2 mg/dL (1.6-2.3); Potassium 3.6 mmol/L (3.5-5.1)
--- NOTE | 2024-08-16 11:15 | P.CRDCN ---
History of Present Illness Consult date: 08/16/24 History of present illness: HISTORY OF PRESENTING ILLNESS: Patient is not able to provide history as she is obtunded and disoriented. History is obtained from the medical chart. There is no family member present at the bedside to provide further history. Apparently patient presented to the hospital because of increased worsening shortness of breath, along with wors ening lower extremity edema. There was also concerns of increasing confusion, obtunded state Home medication metolazone 5, carvedilol 3.125 twice daily, Lasix 20 twice daily Zetia 10 aspirin, Lipitor 40, Admission Vitals: BP 116/68, heart rate 60 Admission Labs: Hb 9.5, WBC 12.5, sodium 127, BUN 14, creatinine 0.8, troponin 0.04, NT-proBNP 5500 Admission EKG: Sinus rhythm heart rate 70 bpm, nonspecific ST changes in lateral leads, poor R wave progression, Q waves inferior lead Imaging: Chest x-ray shows mild increased interstitial marking with right-sided consolidation congestive of pneumonia REVIEW OF SYSTEMS: Could not be obtained as patient is obtunded and disoriented PHYSICAL EXAMINATION: Neck: Brisk carotid upstroke, elevated JVP Lungs: Poor respiratory effort, diminished air entry in right lower lung field, mild crackles audible Heart: Regular rate and rhythm, no significant murmurs Abdomen: Soft nontender, positive bowel sounds. Extremities: 3+ pitting edema bilateral lower extremity Neuro: Obtunded and disoriented, no focal deficits. Detailed neuro exam was not performed. ASSESSMENT: # Metabolic encephalopathy, multifactorial # Acute hypoxic respiratory failure because of pneumonia and CHF exacerbation # Sepsis # Right lower lobe complicated pneumonia # Acute CHF exacerbation, EF unknown # Hypoalbuminemia and hypoproteinemia, hyponatremia # Anemia PLAN: Repeat troponin, obtain TSH lipid A1c Obtain echo Aspirin 81, Lipitor 40, Coreg 3.125 twice daily, Zetia 10 Lasix 40 IV twice daily Carlos Melton MD, FACC, RPVI Thank you for allowing [facility] to participate in this patient's care. Feel free to reach out in case of any followup questions. 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 History of Any Multi-Drug Resistant Organisms: ESBL Date of last positivie culture/infection: 12/15/22 MDRO Source:: Urine Past Surgical History: Back Surgery, Orthopedic Surgery Additional Past Surgical History / Comment(s): 3 back surgeries; Jaw surgery Past Anesthesia/Blood Transfusion Reactions: No Reported Reaction Additional Past Anesthesia/Blood Transfusion Reaction / Comment(s): No reactions that patient is aware of; never recieved blood Smoking Status: Never smoker Medications and Allergies Home Medications Medication Instructions Recorded Confirmed Type Alendronate Sodium [Fosamax] 70 mg PO MO@59908/22/13 08/16/24 History Fexofenadine HCl [Soniya Allergy] 180 mg PO DAILY@89908/22/13 08/16/24 History Aspirin EC [Ecotrin Low Dose] 81 mg PO DAILY@59910/22/21 08/16/24 History Atorvastatin Calcium [Lipitor] 40 mg PO HS@209910/22/21 08/16/24 History Lactobacillus Acidophilus 1 cap PO BID@899,209910/22/21 08/16/24 History [Acidophilus Probiotic] Magnesium Oxide 400 mg PO HS@209910/22/21 08/16/24 History Multivitamins, Thera [Multivitamin 1 tab PO DAILY@89910/22/21 08/16/24 History (formulary)] Sennosides [Senokot] 17.2 mg PO Q12HR@899,209910/22/21 08/16/24 History allopurinoL [Zyloprim] 100 mg PO DAILY@89910/22/21 08/16/24 History polyethylene glycoL 3350 [Miralax] 17 gm PO DAILY@89908/10/22 08/16/24 History Budesonide 0.5 mg INHALATION RT-BID@899,209904/21/24 08/16/24 History Carbamide Peroxide [Debrox Otic] 2 drops BOTH EARS HS@209904/21/24 08/16/24 Hi story Collagenase [Santyl Ointment] 1 applic TOPICAL HS 04/21/24 08/16/24 History Ezetimibe [Zetia] 10 mg PO HS@209904/21/24 08/16/24 History Ferrous Sulfate [Feosol] 325 mg PO Q12HR@0900,209904/21/24 08/16/24 History Fluticasone Propionate 2 spr INHALATION DAILY@0904/21/24 08/16/24 History [Fluticasone Propionate [place] 50 mcg Nasal [place]] Ipratropium-Albuterol Nebulize 3 ml INHALATION RT-Q6H 04/21/24 08/16/24 History [Duoneb 0.5 mg-3 mg/3 ml Soln] carvediloL [Coreg] 3.125 mg PO BID@0900,209904/21/24 08/16/24 History Acetaminophen Tab [Tylenol] 650 mg PO Q4H PRN 08/16/24 08/16/24 History Ascorbic Acid [Vitamin C] 500 mg PO Q12HR@0900,209908/16/24 08/16/24 History Biotene Dry Mouth/Throat Liquid 15 ml PO Q8HR@0600,1400,2200 08/16/24 08/16/24 History Cholecalciferol [Vitamin D3 (10 10 mcg PO Q12HR@0900,209908/16/24 08/16/24 History Mcg = 400 Iu)] Collagenase [Santyl Ointment] 1 applic TOPICAL DAILY PRN 08/16/24 08/16/24 History Furosemide [Lasix] 20 mg PO BID@0600,1700 08/16/24 08/16/24 History Gabapentin [Neurontin] 100 mg PO Q12HR@0900,209908/16/24 08/16/24 History Levofloxacin [Levaquin] 750 mg PO DIRECTED@119908/16/24 08/16/24 History Melatonin 3 mg PO HS@209908/16/24 08/16/24 History Omeprazole 20 mg PO DAILY@0900 08/16/24 08/16/24 History Oyster Shell Calcium 500mg 500 mg PO Q12HR@0900,209908/16/24 08/16/24 History Potassium Chloride ER [K-Dur 20] 20 meq PO HS@209908/16/24 08/16/24 History Z-Guard 1 applic TOPICAL DAILY PRN 08/16/24 08/16/24 History Z-Guard 1 applic TOPICAL Q12H 08/16/24 08/16/24 History guaiFENesin [Mucinex] 1,200 mg PO Q12HR@0900,2100 08/16/24 08/16/24 History metOLazone [Zaroxolyn] 5 mg PO DAILY@1200 08/16/24 08/16/24 History Allergies Allergy/AdvReac Type Severity Reaction Status Date / Time No Known Allergies Allergy Verified 08/16/24 09:32 Physical Exam Vitals: Vital Signs Temp Pulse Resp BP Pulse Ox 08/16/24 11:02 56 L 16 111/63 98 08/16/24 07:52 98.9 F 60 16 119/62 97 08/16/24 06:38 64 08/16/24 06:17 100 08/16/24 05:17 60 18 116/68 92 L 08/16/24 03:01 65 08/16/24 02:52 68 08/16/24 02:25 98.8 F 72 18 136/74 93 L Intake and Output 08/15/24 08/16/24 08/16/24 22:59 06:59 14:59 Other: Weight 127 kg Results 08/16/24 05:00 08/16/24 03:02 Cardiac Enzymes 08/16/24 08/16/24 Range/Units 03:02 05:00 AST 19 (14-36) U/L Troponin I 0.042 H* (0.000-0.034) ng/mL Coagulation 08/16/24 Range/Units 02:44 PT 13.6 H (10.0-12.5) sec APTT 24.0 (22.0-30.0) sec CBC 08/16/24 Range/Units 05:00 WBC 12.50 H (4.50-10.00) 10*3/uL RBC 3.35 L (4.10-5.20) 10*6/uL Hgb 9.5 L (12.0-15.0) g/dL Hct 29.9 L (37.2-46.3) % Plt Count 391 (140-440) 10*3/uL Comprehensive Metabolic Panel 08/16/24 Range/Units 03:02 Sodium 127 L (137-145) mmol/L Potassium 3.6 (3.5-5.1) mmol/L Chloride 81 L (98-107) mmol/L Carbon Dioxide 40 H (22-30) mmol/L BUN 14 (7-17) mg/dL Creatinine 0.38 L (0.52-1.04) mg/dL Glucose 95 (74-99) mg/dL Calcium 9.5 (8.4-10.2) mg/dL AST 19 (14-36) U/L ALT 17 (4-34) U/L Alkaline Phosphatase 100 (38-126) U/L Total Protein 5.6 L (6.3-8.2) g/dL Albumin 2.9 L (3.5-5.0) g/dL Current Medications Generic Name Dose Route Start Last Admin Trade Name Freq PRN Reason Stop Dose Admin Acetaminophen 650 mg 08/16/24 10:51 Acetaminophen Tab 325 Mg Tab PO Q4H PRN Pain Albuterol Sulfate 2.5 mg 08/16/24 04:51 Albuterol Nebulized 2.5 Mg/3 Ml INHALATION RT-Q4H PRN Shortness Of Breath Or Wheezing Allopurinol 100 mg 08/17/24 09:00 Allopurinol 100 Mg Tab PO DAILY@0900 [facility] Ascorbic Acid 500 mg 08/16/24 21:00 Ascorbic Acid 500 Mg Tab PO Q12HR@0900,2099 [facility] Atorvastatin Calcium 40 mg 08/16/24 21:00 Atorvastatin 40 Mg Tab PO HS@2100 [facility] Budesonide 0.5 mg 08/16/24 21:00 Budesonide 0.5 Mg/2 Ml Nebu INHALATION RT-BID@0900,2100 [facility] Carvedilol 3.125 mg 08/16/24 21:00 Carvedilol 3.125 Mg Tab PO BID@0900,2100 [facility] Cholecalciferol 10 mcg 08/16/24 21:00 Cholecalciferol 10 Mcg (400 Iu) Tablet PO Q12HR@0900,2100 [facility] Ezetimibe 10 mg 08/16/24 21:00 Ezetimibe 10 Mg Tab PO HS@2100 [facility] Ferrous Sulfate 325 mg 08/16/24 21:00 Ferrous Sulfate 325 Mg Tab PO Q12HR@0900,2100 [facility] Furosemide 40 mg 08/16/24 11:00 Furosemide 10 Mg/Ml 4 Ml Vial IV Q12HR [facility] Gabapentin 100 mg 08/16/24 21:00 Gabapentin 100 Mg Cap PO Q12HR@0900,2100 [facility] Sodium Chloride 1,000 mls @ 20 mls/hr 08/16/24 02:30 08/16/24 05:43 Saline 0.9% IV 20 mls/hr .Q24H [facility] Administration Ceftriaxone Sodium 2 gm/ 50 mls @ 100 mls/hr 08/17/24 09:00 Sodium Chloride IVPB 08/20/24 09:29 Q24HR [facility] Protocol Azithromycin 500 mg/ Sodium 250 mls @ 250 mls/hr 08/17/24 09:00 Chloride IVPB 08/18/24 09:59 DAILY [facility] Protocol Magnesium Oxide 400 mg 08/16/24 21:00 Magnesium Oxide 400 Mg Tab PO HS@2100 [facility] Melatonin 3 mg 08/16/24 21:00 Melatonin 3 Mg Tablet PO HS@2100 [facility] Metolazone 5 mg 08/16/24 12:00 Metolazone 5 Mg Tab PO DAILY@1200 [facility] Miscellaneous Information 1 each 08/16/24 04:51 Pneumonia Protocol Utilized 1 Each Misc PO ONCE PRN Per Protocol Multivitamins 1 each 08/17/24 09:00 Multivitamins, Thera 1 Each Tab PO DAILY@0900 [facility] Non-Formulary Medication 81 mg 08/17/24 06:00 Aspirin Ec PO DAILY@0600 [facility] Non-Formulary Medication 180 mg 08/17/24 09:00 Fexofenadine Hcl [Soniya Allergy] PO DAILY@0900 [facility] Non-Formulary Medication 2 spr 08/17/24 09:00 Fluticasone Propionate [Fluticasone Propionate [place] 50 Mcg Nasal [place]] INHALATION DAILY@0900 [facility] Non-Formulary Medication 1 cap 08/16/24 21:00 Lactobacillus Acidophilus [Acidophilus Probiotic] PO BID@0900,2100 [facility] Non-Formulary Medication 20 mg 08/17/24 09:00 Omeprazole [Omeprazole] PO DAILY@0900 [facility] Polyethylene Glycol 17 gm 08/17/24 09:00 Polyethylene Glycol 3350 17 Gm Powd.Pack PO DAILY@0900 [facility] Potassium Chloride 20 meq 08/16/24 21:00 Potassium Chloride Er 20 Meq Tab.Er PO HS@2100 [facility] Senna 17.2 mg 08/16/24 21:00 Sennosides 8.6 Mg Tab PO Q12HR@0900,2100 [facility] Intake and Output 08/15/24 08/16/24 08/16/24 22:59 06:59 14:59 Other: Weight 127 kg 08/16/24 05:00 08/16/24 03:02
--- NOTE | 2024-08-16 11:27 | P.CNPUL ---
History of Present Illness Consult date: 08/16/24 Requesting physician: Rich Hodgson Reason for consult: hypoxemia, abnormal CXR/CT Chief complaint: Shortness of breath, cough History of present illness: This is an 84-year-old female patient who resides at [facility] [place] with previous CVA and left-sided hemiplegia, congestive heart failure, hyperlipidemia, hypertension, lifelong non-smoker who was brought into the emergency room early this morning with shortness of breath and cough. Chest x- ray reveals bilateral lower lobe consolidations. White count 12.5. Hemoglobin 9.5. Platelets 391. Sodium 127. Potassium 3.6. Bicarb 40. BUN 14. Creatinine 0.38. Troponin 0.042. 0.038. proBNP 5540. She is seen today in consultation in the emergency department. Currently sitting up on a stretcher. She is difficult to arouse. Somewhat obtunded. Poor historian. She is maintaining O2 saturations in the high 90s on 6 L/min per nasal cannula. Afebrile. Hemodynamically stable. 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 History of Any Multi-Drug Resistant Organisms: ESBL Date of last positivie culture/infection: 12/15/22 MDRO Source:: Urine Past Surgical History: Back Surgery, Orthopedic Surgery Additional Past Surgical History / Comment(s): 3 back surgeries; Jaw surgery Past Anesthesia/Blood Transfusion Reactions: No Reported Reaction Additional Past Anesthesia/Blood Transfusion Reaction / Comment(s): No reactions that patient is aware of; never recieved blood Smoking Status: Never smoker Medications and Allergies Home Medications Medication Instructions Recorded Confirmed Type Alendronate Sodium [Fosamax] 70 mg PO MO@59908/22/13 08/16/24 History Fexofenadine HCl [Soniya Allergy] 180 mg PO DAILY@89908/22/13 08/16/24 History Aspirin EC [Ecotrin Low Dose] 81 mg PO DAILY@59910/22/21 08/16/24 History Atorvastatin Calcium [Lipitor] 40 mg PO HS@209910/22/21 08/16/24 History Lactobacillus Acidophilus 1 cap PO BID@0900,209910/22/21 08/16/24 History [Acidophilus Probiotic] Magnesium Oxide 400 mg PO HS@209910/22/21 08/16/24 History Multivitamins, Thera [Multivitamin 1 tab PO DAILY@0900 10/22/21 08/16/24 History (formulary)] Sennosides [Senokot] 17.2 mg PO Q12HR@0900,209910/22/21 08/16/24 History allopurinoL [Zyloprim] 100 mg PO DAILY@0910/22/21 08/16/24 History polyethylene glycoL 3350 [Miralax] 17 gm PO DAILY@89908/10/22 08/16/24 History Budesonide 0.5 mg INHALATION RT-BID@09,209904/21/24 08/16/24 History Carbamide Peroxide [Debrox Otic] 2 drops BOTH EARS HS@209904/21/24 08/16/24 History Collagenase [Santyl Ointment] 1 applic TOPICAL HS 04/21/24 08/16/24 History Ezetimibe [Zetia] 10 mg PO HS@209904/21/24 08/16/24 History Ferrous Sulfate [Feosol] 325 mg PO Q12HR@0900,209904/21/24 08/16/24 History Fluticasone Propionate 2 spr INHALATION DAILY@89904/21/24 08/16/24 History [Fluticasone Propionate [place] 50 mcg Nasal [place]] Ipratropium-Albuterol Nebulize 3 ml INHALATION RT-Q6H 04/21/24 08/16/24 History [Duoneb 0.5 mg-3 mg/3 ml Soln] carvediloL [Coreg] 3.125 mg PO BID@0900,209904/21/24 08/16/24 History Acetaminophen Tab [Tylenol] 650 mg PO Q4H PRN 08/16/24 08/16/24 History Ascorbic Acid [Vitamin C] 500 mg PO Q12HR@0900,209908/16/24 08/16/24 History Biotene Dry Mouth/Throat Liquid 15 ml PO Q8HR@0600,1400,2200 08/16/24 08/16/24 History Cholecalciferol [Vitamin D3 (10 10 mcg PO Q12HR@0900,209908/16/24 08/16/24 History Mcg = 400 Iu)] Collagenase [Santyl Ointment] 1 applic TOPICAL DAILY PRN 08/16/24 08/16/24 History Furosemide [Lasix] 20 mg PO BID@0600,1700 08/16/24 08/16/24 History Gabapentin [Neurontin] 100 mg PO Q12HR@0900,209908/16/24 08/16/24 History Levofloxacin [Levaquin] 750 mg PO DIRECTED@119908/16/24 08/16/24 History Melatonin 3 mg PO HS@209908/16/24 08/16/24 History Omeprazole 20 mg PO DAILY@0900 08/16/24 08/16/24 History Oyster Shell Calcium 500mg 500 mg PO Q12HR@0900,209908/16/24 08/16/24 History Potassium Chloride ER [K-Dur 20] 20 meq PO HS@209908/16/24 08/16/24 History Z-Guard 1 applic TOPICAL DAILY PRN 08/16/24 08/16/24 History Z-Guard 1 applic TOPICAL Q12H 08/16/24 08/16/24 History guaiFENesin [Mucinex] 1,200 mg PO Q12HR@0900,209908/16/24 08/16/24 History metOLazone [Zaroxolyn] 5 mg PO DAILY@119908/16/24 08/16/24 History Allergies Allergy/AdvReac Type Severity Reaction Status Date / Time No Known Allergies Allergy Verified 08/16/24 09:32 Physical Exam Vitals: Vital Signs Temp Pulse Resp BP Pulse Ox 08/16/24 11:02 56 L 16 111/63 98 08/16/24 07:52 98.9 F 60 16 119/62 97 08/16/24 06:38 64 08/16/24 06:17 100 08/16/24 05:17 60 18 116/68 92 L 08/16/24 03:01 65 08/16/24 02:52 68 08/16/24 02:25 98.8 F 72 18 136/74 93 L Intake and Output 08/15/24 08/16/24 08/16/24 22:59 06:59 14:59 Other: Weight 127 kg GENERAL EXAM: Difficult to arouse, obese 84-year-old female, on 6 L high flow nasal cannula, in no apparent distress. HEAD: Normocephalic. EYES: Normal reaction of pupils, equal size. NOSE: Clear with pink turbinates. THROAT: No erythema or exudates. NECK: No masses, no JVD. CHEST: No chest wall deformity. LUNGS: Equal air entry with scattered rhonchi bilaterally. CVS: S1 and S2 normal with no audible murmur, regular rhythm. ABDOMEN: No hepatosplenomegaly, normal bowel sounds, no guarding or rigidity. SPINE: No scoliosis or deformity SKIN: No rashes CENTRAL NERVOUS SYSTEM: Left-sided hemiplegia, tone is normal in all 4 extremities. EXTREMITIES: There is 1+ peripheral edema. No clubbing, no cyanosis. Peripher al pulses are intact. Results - Laboratory Findings CBC and BMP: 08/16/24 05:00 08/16/24 03:02 PT/INR, D-dimer PT 13.6 sec (10.0-12.5) H 08/16/24 02:44 INR 1.3 (<1.2) H 08/16/24 02:44 Abnormal lab findings: Abnormal Labs 08/16/24 08/16/24 08/16/24 02:44 03:02 05:00 WBC 12.50 H RBC 3.35 L Hgb 9.5 L Hct 29.9 L MCHC 31.8 L MPV 9.1 L Immature Gran # 0.21 H Neutrophils # 10.90 H Lymphocytes # 0.67 L Eosinophils # 0.00 L PT 13.6 H INR 1.3 H Sodium 127 L Chloride 81 L Carbon Dioxide 40 H Creatinine 0.38 L Troponin I Total Protein 5.6 L Albumin 2.9 L 08/16/24 05:00 WBC RBC Hgb Hct MCHC MPV Immature Gran # Neutrophils # Lymphocytes # Eosinophils # PT INR Sodium Chloride Carbon Dioxide Creatinine Troponin I 0.042 H* Total Protein Albumin - Diagnostic Findings Chest x-ray: image reviewed Assessment and Plan Assessment: Acute hypoxic respiratory failure secondary to suspected diastolic versus systolic congestive heart failure and/or community-acquired pneumonia Altered mental status secondary to above Hyponatremia Mild leukocytosis Mild anemia History of congestive heart failure History of CVA with left-sided hemiplegia History of gout Hyperlipidemia Lifelong non-smoker [facility] resident Plan: The patient was seen and evaluated Chest x-ray, labs and medications reviewed Titrate down the FiO2 as tolerated Check a procalcitonin Continue antibiotics for now Continue IV diuretics Continue bronchodilators Continue her home medication We will continue to follow and make further recommendations based on her clinical status I have personally seen and examined the patient, performed the documentation and the assessment and plan as written. Number of minutes spent on the visit: 20 Dictation was produced using [employer] dictation software. Please excuse any grammatical, word or spelling errors. Time with Patient: Greater than 30
[2024-08-16 11:30] LABS: Magnesium 2.4 mg/dL (1.6-2.3)
[2024-08-16] MEDS: FUROSEMIDE 10 MG/ML 4 ML VIAL IV SCH (11:34)
[2024-08-16 13:00] LABS: T4, Free (Free Thyroxine) 2.02 ng/dL (0.78-2.19)
[2024-08-16] MEDS: ALBUTEROL NEBULIZED 2.5 MG/3 ML INHALATION PRN (18:06)
[2024-08-16] MEDS: BUDESONIDE 0.5 MG/2 ML NEBU INHALATION SCH (18:07)
[2024-08-16 21:44] LABS: Glucose,Whole Blood 85 mg/dL (70-110)
[2024-08-16] MEDS: ASCORBIC ACID 500 MG TAB PO SCH (22:02)
[2024-08-16] MEDS: EZETIMIBE 10 MG TAB PO SCH (22:03)
[2024-08-16] MEDS: GABAPENTIN 100 MG CAP PO SCH (22:03)
[2024-08-16] MEDS: FERROUS SULFATE 325 MG TAB PO SCH (22:03)
[2024-08-16] MEDS: CHOLECALCIFEROL 10 MCG (400 IU) TABLET PO SCH (22:03)
[2024-08-16] MEDS: LACTOBACILLUS ACIDOPHILUS/PECT 1 EACH CAPSULE PO SCH (22:03)
[2024-08-16] MEDS: ATORVASTATIN 40 MG TAB PO SCH (22:03)
[2024-08-16] MEDS: MELATONIN 3 MG TABLET PO SCH (22:04)
[2024-08-16] MEDS: MAGNESIUM OXIDE 400 MG TAB PO SCH (22:04)
[2024-08-16] MEDS: POTASSIUM CHLORIDE ER 20 MEQ TAB.ER PO SCH (22:04)
[2024-08-16] MEDS: SENNOSIDES 8.6 MG TAB PO SCH (22:04)
--- NOTE | 2024-08-16 22:17 | XR ---
EXAMINATION TYPE: XR chest 1V portable DATE OF EXAM: 08/16/2024 9:56 PM COMPARISON: Prior chest radiograph 08/16/2024. CLINICAL INDICATION: Female, 84 years old with history of Resp distress; [facility] TECHNIQUE: XR chest 1V portable Frontal view of the chest. FINDINGS: Lungs/Pleura: Small to moderate right pleural effusion with adjacent right lower lobe consolidative c hanges. Possible trace left effusion. No pneumothorax. Pulmonary vascularity: Unremarkable. Heart/mediastinum: Cardiomegaly. Musculoskeletal: No acute osseous pathology. Posterior fusion hardware and previous vertebral augment ation procedures. Other findings: None IMPRESSION: No significant interval changes from prior same-day chest radiograph. [facility], , 08/16/2024 10:15 PM
--- NOTE | 2024-08-16 23:15 | P.HPIM ---
History of Present Illness H&P Date: 08/16/24 Chief Complaint: Shortness of breath 84-year-old female patient who resides at [facility] on the [place] with previous CVA and left-sided hemiplegia, congestive heart failure, hyperlipidemia, hypertension, lifelong non-smoker who was brought into the emergency room early this morning with shortness of breath and cough. -- Chest x-ray reveals bilateral lower lobe consolidations. -Blood work completed in the ED reveals White count 12.5. Hemoglobin 9.5. Platelets 391. Sodium 127. Potassium 3.6. Bicarb 40. BUN 14. Creatinine 0.38. Troponin 0.042. 0.038. proBNP 5540. 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 History of Any Multi-Drug Resistant Organisms: ESBL Date of last positivie culture/infection: 12/15/22 MDRO Source:: Urine Past Surgical History: Back Surgery, Orthopedic Surgery Additional Past Surgical History / Comment(s): 3 back surgeries; Jaw surgery Past Anesthesia/Blood Transfusion Reactions: No Reported Reaction Additional Past Anesthesia/Blood Transfusion Reaction / Comment(s): No reactions that patient is aware of; never recieved blood Smoking Status: Never smoker Medications and Allergies Home Medications Medication Instructions Recorded Confirmed Type Alendronate Sodium [Fosamax] 70 mg PO MO@59908/22/13 08/16/24 History Fexofenadine HCl [Soniya Allergy] 180 mg PO DAILY@89908/22/13 08/16/24 History Aspirin EC [Ecotrin Low Dose] 81 mg PO DAILY@59910/22/21 08/16/24 History Atorvastatin Calcium [Lipitor] 40 mg PO HS@209910/22/21 08/16/24 History Lactobacillus Acidophilus 1 cap PO BID@0900,209910/22/21 08/16/24 History [Acidophilus Probiotic] Magnesium Oxide 400 mg PO HS@209910/22/21 08/16/24 History Multivitamins, Thera [Multivitamin 1 tab PO DAILY@0910/22/21 08/16/24 History (formulary)] Sennosides [Senokot] 17.2 mg PO Q12HR@0900,209910/22/21 08/16/24 History allopurinoL [Zyloprim] 100 mg PO DAILY@89910/22/21 08/16/24 History polyethylene glycoL 3350 [Miralax] 17 gm PO DAILY@89908/10/22 08/16/24 History Budesonide 0.5 mg INHALATION RT-BID@899,209904/21/24 08/16/24 History Carbamide Peroxide [Debrox Otic] 2 drops BOTH EARS HS@209904/21/24 08/16/24 History Collagenase [Santyl Ointment] 1 applic TOPICAL HS 04/21/24 08/16/24 History Ezetimibe [Zetia] 10 mg PO HS@209904/21/24 08/16/24 History Ferrous Sulfate [Feosol] 325 mg PO Q12HR@0900,209904/21/24 08/16/24 History Fluticasone Propionate 2 spr INHALATION DAILY@89904/21/24 08/16/24 History [Fluticasone Propionate Vernalis 50 mcg Nasal Vernalis] Ipratropium-Albuterol Nebulize 3 ml INHALATION RT-Q6H 04/21/24 08/16/24 History [Duoneb 0.5 mg-3 mg/3 ml Soln] carvediloL [Coreg] 3.125 mg PO BID@0900,209904/21/24 08/16/24 History Acetaminophen Tab [Tylenol] 650 mg PO Q4H PRN 08/16/24 08/16/24 History Ascorbic Acid [Vitamin C] 500 mg PO Q12HR@0900,209908/16/24 08/16/24 History Biotene Dry Mouth/Throat Liquid 15 ml PO Q8HR@0600,1400,2200 08/16/24 08/16/24 History Cholecalciferol [Vitamin D3 (10 10 mcg PO Q12HR@0900,209908/16/24 08/16/24 History Mcg = 400 Iu)] Collagenase [Santyl Ointment] 1 applic TOPICAL DAILY PRN 08/16/24 08/16/24 History Furosemide [Lasix] 20 mg PO BID@0600,1700 08/16/24 08/16/24 History Gabapentin [Neurontin] 100 mg PO Q12HR@0900,209908/16/24 08/16/24 History Levofloxacin [Levaquin] 750 mg PO DIRECTED@1200 08/16/24 08/16/24 History Melatonin 3 mg PO HS@209908/16/24 08/16/24 History Omeprazole 20 mg PO DAILY@0908/16/24 08/16/24 History Oyster Shell Calcium 500mg 500 mg PO Q12HR@0900,209908/16/24 08/16/24 History Potassium Chloride ER [K-Dur 20] 20 meq PO HS@209908/16/24 08/16/24 History Z-Guard 1 applic TOPICAL DAILY PRN 08/16/24 08/16/24 History Z-Guard 1 applic TOPICAL Q12H 08/16/24 08/16/24 History guaiFENesin [Mucinex] 1,200 mg PO Q12HR@0900,209908/16/24 08/16/24 History metOLazone [Zaroxolyn] 5 mg PO DAILY@119908/16/24 08/16/24 History Allergies Allergy/AdvReac Type Severity Reaction Status Date / Time No Known Allergies Allergy Verified 08/16/24 09:32 Physical Exam Vitals: Vital Signs Temp Pulse Resp BP Pulse Ox 08/16/24 07:52 98.9 F 60 16 119/62 97 08/16/24 06:38 64 08/16/24 06:17 100 08/16/24 05:17 60 18 116/68 92 L 08/16/24 03:01 65 08/16/24 02:52 68 08/16/24 02:25 98.8 F 72 18 136/74 93 L Intake and Output 08/15/24 08/16/24 08/16/24 22:59 06:59 14:59 Other: Weight 127 kg GENERAL EXAM: Difficult to arouse, obese 84-year-old female, on 6 L high flow nasal cannula, in no apparent distress. HEAD: Normocephalic. EYES: Normal reaction of pupils, equal size. THROAT: No erythema or exudates. NECK: No masses, no JVD. CHEST: No chest wall deformity. LUNGS: Equal air entry with scattered rhonchi bilaterally. CVS: S1 and S2 normal with no audible murmur, regular rhythm. ABDOMEN: No hepatosplenomegaly, normal bowel sounds, no guarding or rigidity. CENTRAL NERVOUS SYSTEM: Left-sided hemiplegia, tone is normal in all 4 extremities. EXTREMITIES: There is 1+ peripheral edema. No clubbing, no cyanosis. Peripheral pulses are intact. Results CBC & Chem 7: 08/16/24 05:00 08/16/24 03:02 Labs: Abnormal Lab Results - Last 24 Hours (Table) 08/16/24 08/16/24 08/16/24 Range/Units 02:44 03:02 05:00 WBC 12.50 H (4.50-10.00) 10*3/uL RBC 3.35 L (4.10-5.20) 10*6/uL Hgb 9.5 L (12.0-15.0) g/dL Hct 29.9 L (37.2-46.3) % MCHC 31.8 L (32.0-37.0) g/dL MPV 9.1 L (9.5-12.2) fL Immature Gran # 0.21 H (0.00-0.04) 10*3/uL Neutrophils # 10.90 H (1.80-7.70) 10*3/uL Lymphocytes # 0.67 L (0.90-5.00) 10*3/uL Eosinophils # 0.00 L (0.04-0.35) 10*3/uL PT 13.6 H (10.0-12.5) sec INR 1.3 H (<1.2) Sodium 127 L (137-145) mmol/L Chloride 81 L (98-107) mmol/L Carbon Dioxide 40 H (22-30) mmol/L Creatinine 0.38 L (0.52-1.04) mg/dL Troponin I (0.000-0.034) ng/mL Total Protein 5.6 L (6.3-8.2) g/dL Albumin 2.9 L (3.5-5.0) g/dL 08/16/24 Range/Units 05:00 WBC (4.50-10.00) 10*3/uL RBC (4.10-5.20) 10*6/uL Hgb (12.0-15.0) g/dL Hct (37.2-46.3) % MCHC (32.0-37.0) g/dL MPV (9.5-12.2) fL Immature Gran # (0.00-0.04) 10*3/uL Neutrophils # (1.80-7.70) 10*3/uL Lymphocytes # (0.90-5.00) 10*3/uL Eosinophils # (0.04-0.35) 10*3/uL PT (10.0-12.5) sec INR (<1.2) Sodium (137-145) mmol/L Chloride (98-107) mmol/L Carbon Dioxide (22-30) mmol/L Creatinine (0.52-1.04) mg/dL Troponin I 0.042 H* (0.000-0.034) ng/mL Total Protein (6.3-8.2) g/dL Albumin (3.5-5.0) g/dL Assessment and Plan Assessment: 1. Acute hypoxic respiratory failure; likely multifactorial; related to CHF exacerbation and community-acquired pneumonia - Patient is currently on BiPAP; plan to titrate or wean FiO2 keeping O2 saturation greater than 92% 2. Acute exacerbation CHF - Patient has been placed on IV diuretic; monitor strict FABBY's, daily weights, low-salt and fluid restricted diet; continue with home dose of metolazone 5 mg daily - Recommend 2D echo - Consult cardiology 3. Community-acquired pneumonia - Patient has been placed on IV antibiotics; bronchodilator nebulizer treatments 4 times daily and as needed; will monitor CBC, CRP and procalcitonin - Consult pulmonary; appreciate recommendations 4. Altered mental status; likely toxic metabolic encephalopathy related to above 5. Hyponatremia; sodium level at 127; we will monitor electrolytes closely 6. Hyperlipidemia; Lipitor 40 mg p.o. nightly; Zetia 10 mg daily 7. History of gout; allopurinol 100 mg daily 8. Hypertension; Coreg 3.125 mg daily DVT prophylaxis; SCDs CODE STATUS; full code
[2024-08-17 01:19] LABS: Cholesterol 67.00 mg/dL (0.00-200.00); HDL Cholesterol 21.20 mg/dL (40.00-60.00); LDL Cholesterol,Calculated 31.1 mg/dL (0.0-131.0); Triglycerides 73.60 mg/dL (0.00-149.00); VLDL Calculation 14.72 mg/dL (5.00-40.00)
[2024-08-17] MEDS: ASPIRIN 81 MG PO SCH (05:50)
--- NOTE | 2024-08-17 07:00 | XR ---
EXAMINATION TYPE: XR chest 1V portable DATE OF EXAM: 08/17/2024 COMPARISON: 08/16/2024 CLINICAL INDICATION: Female, 84 years old with history of pneumonia; TECHNIQUE: Single frontal view of the chest is obtained. FINDINGS: There is no interval change in the small bibasilar infiltrates. The mid and right upper lobes are nicolasa ar. There is no pneumothorax. The heart size is normal for the technique. There is no pulmonary vascu lar congestion. IMPRESSION: No change in the bibasilar infiltrates. [facility], , 08/17/2024 6:58 AM
[2024-08-17 07:05] LABS: Basophils # (A) 0.05 10*3/uL (0.00-0.10); Basophils % (A) 0.3 %; Eosinophils # (A) 0.00 10*3/uL (0.04-0.35); Eosinophils % (A) 0.0 %; HCT 32.7 % (37.2-46.3); HGB 10.3 g/dL (12.0-15.0); Lymphocytes # (A) 0.73 10*3/uL (0.90-5.00); Lymphocytes % (A) 3.9 %; MCH 28.3 pg (27.0-32.0); MCHC 31.5 g/dL (32.0-37.0); MCV 89.8 fL (80.0-97.0); Monocytes # (A) 0.70 10*3/uL (0.20-1.00); Monocytes % (A) 3.7 %; Neutrophils # (A) 17.15 10*3/uL (1.80-7.70); Neutrophils % (A) 91.1 %; Platelet Count 396 10*3/uL (140-440); RBC 3.64 10*6/uL (4.10-5.20); RDW 13.9 % (11.5-14.5); WBC 18.81 10*3/uL (4.50-10.00)
[2024-08-17 07:18] LABS: African American GFR (CKD) >90 (>60 ml/min/1.73 sqM); Anion Gap 10 mmol/L; Blood Urea Nitrogen 21 mg/dL (7-17); Calcium 9.5 mg/dL (8.4-10.2); Carbon Dioxide 40 mmol/L (22-30); Chloride 80 mmol/L (98-107); Glucose 61 mg/dL (74-99); Non-African American GFR(CKD) 84 (>60 ml/min/1.73 sqM); Sodium 130 mmol/L (137-145)
[2024-08-17 07:35] LABS: Potassium 2.4 mmol/L (3.5-5.1)
[2024-08-17] MEDS: MULTIVITAMINS, THERA 1 EACH TAB PO SCH (09:15)
[2024-08-17] MEDS: PANTOPRAZOLE 40 MG TABLET PO SCH (09:15)
[2024-08-17] MEDS: LORATADINE 10 MG TAB PO SCH (09:16)
[2024-08-17] MEDS: FLUTICASONE NASAL 50MCG/SPRAY 16GM BTL NASAL SCH (09:17)
[2024-08-17] MEDS ORDERED: Potassium Replacement Protocol 1 EACH MISC MISCELLANE PRN (10:01)
[2024-08-17] MEDS: AZITHROMYCIN 500 MG in SODIUM CHLORIDE 0.9% 250 ML IVPB SCH (10:36)
[2024-08-17] MEDS ORDERED: POTASSIUM CHLORIDE 10 MEQ in WATER FOR INJECTION 1 100ML.BAG IVPB SCH (11:00)
[2024-08-17] MEDS: POTASSIUM CHLORIDE ER 20 MEQ TAB.ER PO SCH (11:09)
--- NOTE | 2024-08-17 11:57 | P.PN ---
Subjective Progress Note Date: 08/17/24 Principal diagnosis: Pneumonia. This is an 84-year-old female patient who resides at [facility] on the [place] with previous CVA and left-sided hemiplegia, congestive heart failure, hyp erlipidemia, hypertension, lifelong non-smoker who was brought into the emergency room early this morning with shortness of breath and cough. Chest x- ray reveals bilateral lower lobe consolidations. White count 12.5. Hemoglobin 9.5. Platelets 391. Sodium 127. Potassium 3.6. Bicarb 40. BUN 14. Creatinine 0.38. Troponin 0.042. 0.038. proBNP 5540. She is seen today in consultation in the emergency department. Currently sitting up on a stretcher. She is difficult to arouse. Somewhat obtunded. Poor historian. She is maintaining O2 saturations in the high 90s on 6 L/min per nasal cannula. Afebrile. Hemodynamically stable. Progress note dated August 17, 2024. 85-year-old female seen yesterday in consultation. She came from one of the local nursing homes, with complaints of shortness of breath, cough, and phlegm production. Chest x-ray revealed possible pneumonia. She is seen today in room 372. She is on BiPAP, with settings of 16/8, 60%. She continues on azithromycin and Rocephin. He is much more awake today than she was yesterday. White count was 18.8, hemoglobin 10.3, hematocrit 32.7, platelet count 3 96,000. Sodium 130, potassium 2.4, chlorides 80, CO2 40, BUN 21, creatinine 0.63. Calcium is 9.5. Chest x-ray is essentially unchanged. Objective - Vital Signs Vital signs: Vital Signs Temp 97.5 F L 08/17/24 11:32 Pulse 68 08/17/24 11:32 Resp 24 08/17/24 11:32 BP 98/69 08/17/24 11:32 Pulse Ox 94 L 08/17/24 11:32 FiO2 60 08/17/24 11:32 Intake & Output 08/16/24 08/17/24 08/17/24 18:59 06:59 18:59 Output Total 1110 900 450 Balance -1109 900 -450 Weight 127 kg Output: Urine 1110 900 450 Other: Voiding Method Indwelling Catheter Indwelling Catheter - Exam No acute distress, bit more awake, currently on BiPAP. Able to answer questions today. HEENT examination is grossly unremarkable. Mucous membranes are moist. No oral lesions. Neck supple. Full range of motion. No adenopathy thyromegaly or neck vein distention. Cardiovascular examination reveals regular rhythm rate. S1-S2 normal. No S3 or S4. No discernible murmur noted. Lungs reveal scattered rhonchi. No wheezes. Basilar crackles are noted. Breath sounds are equal. Abdomen soft bowel sounds are heard. No masses or tenderness. Extremities are intact. Trace edema noted, probably 1+. Skin is without rash or lesion. Neurologic examination is brief but nonfocal. - Labs CBC & Chem 7: 08/17/24 06:19 08/17/24 06:19 Labs: Abnormal Lab Results - Last 24 Hours (Table) 08/16/24 08/16/24 08/17/24 Range/Units 10:05 22:53 06:19 WBC 18.81 H (4.50-10.00) 10*3/uL RBC 3.64 L (4.10-5.20) 10*6/uL Hgb 10.3 L (12.0-15.0) g/dL Hct 32.7 L (37.2-46.3) % MCHC 31.5 L (32.0-37.0) g/dL MPV 9.3 L (9.5-12.2) fL Immature Gran # 0.18 H (0.00-0.04) 10*3/uL Neutrophils # 17.15 H (1.80-7.70) 10*3/uL Lymphocytes # 0.73 L (0.90-5.00) 10*3/uL Eosinophils # 0.00 L (0.04-0.35) 10*3/uL D-Dimer 0.74 H (<0.60) mg/L FEU Sodium (137-145) mmol/L Potassium (3.5-5.1) mmol/L Chloride (98-107) mmol/L Carbon Dioxide (22-30) mmol/L BUN (7-17) mg/dL Glucose (74-99) mg/dL Magnesium 2.4 H (1.6-2.3) mg/dL HDL Cholesterol 21.20 L (40.00-60.00) mg/dL TSH 0.394 L (0.465-4.680) mIU/L 08/17/24 Range/Units 06:19 WBC (4.50-10.00) 10*3/uL RBC (4.10-5.20) 10*6/uL Hgb (12.0-15.0) g/dL Hct (37.2-46.3) % MCHC (32.0-37.0) g/dL MPV (9.5-12.2) fL Immature Gran # (0.00-0.04) 10*3/uL Neutrophils # (1.80-7.70) 10*3/uL Lymphocytes # (0.90-5.00) 10*3/uL Eosinophils # (0.04-0.35) 10*3/uL D-Dimer (<0.60) mg/L FEU Sodium 130 L (137-145) mmol/L Potassium 2.4 L* (3.5-5.1) mmol/L Chloride 80 L (98-107) mmol/L Carbon Dioxide 40 H (22-30) mmol/L BUN 21 H (7-17) mg/dL Glucose 61 L (74-99) mg/dL Magnesium (1.6-2.3) mg/dL HDL Cholesterol (40.00-60.00) mg/dL TSH (0.465-4.680) mIU/L Assessment and Plan Assessment: Acute hypoxic respiratory failure secondary to suspected diastolic versus systolic congestive heart failure and/or community-acquired pneumonia. Altered mental status secondary to above. Hyponatremia. Mild leukocytosis. Mild anemia. History of congestive heart failure. History of CVA with left-sided hemiplegia. History of gout. Hyperlipidemia. Lifelong non-smoker. halfway resident. Plan: Plan dated August 17, 2024. The patient is seen today in room 372. Yesterday we saw her in the emergency department. Yesterday she was quite somnolent/lethargic. Today she is much more awake and alert. She continues on BiPAP. Could probably come off of BiPAP and go onto nasal cannula. She continues on azithromycin and Rocephin. Labs, x-rays, and medications are reviewed. Chest x-ray is unchanged. She is being treated for heart failure, versus, bibasilar pneumonia. We will continue to follow and make recommendations were appropriate. Prognosis is guarded. Dictation was produced using [employer] software. Please excuse any grammatical, word or spelling errors. Time with Patient: Less than 30
--- NOTE | 2024-08-17 17:07 | P.PN ---
Subjective Progress Note Date: 08/17/24 84-year-old female patient who resides at [facility] on the [place] with previous CVA and left-sided hemiplegia, congestive heart failure, hyperlipidemia, hypertension, lifelong non-smoker who was brought into the emergency room early this morning with shortness of breath and cough. -- Chest x-ray reveals bilateral lower lobe consolidations. -Blood work completed in the ED reveals White count 12.5. Hemoglobin 9.5. Platelets 391. Sodium 127. Potassium 3.6. Bicarb 40. BUN 14. Creatinine 0.38. Troponin 0.042. 0.038. proBNP 5540. - While in the ED patient desaturated and had to be placed on BiPAP; pulmonary consult was placed Patient seen and evaluated sitting up in bed; she is on BiPAP, with settings of 16/8, 60%. She continues on azithromycin and Rocephin. He is much more awake today than she was yesterday. White count was 18.8, hemoglobin 10.3, hematocrit 32.7, platelet count 3 96,000. Sodium 130, potassium 2.4, chlorides 80, CO2 40, BUN 21, creatinine 0.63. Calcium is 9.5. --Pulmonary service on board and recommending to continue with current antibiotic Objective - Vital Signs Vital signs: Vital Signs Temp 97.8 F 08/17/24 08:00 Pulse 64 08/17/24 09:04 Resp 20 08/17/24 08:00 BP 123/93 08/17/24 08:00 Pulse Ox 96 08/17/24 08:00 FiO2 60 08/17/24 08:56 Intake & Output 08/16/24 08/17/24 08/17/24 18:59 06:59 18:59 Output Total 1110 900 Balance -1110 -900 Weight 127 kg Output: Urine 1110 900 Other: Voiding Method Indwelling Catheter - Exam GENERAL EXAM: Patient is currently on BiPAP; alert and responsive. HEAD: Normocephalic. EYES: Normal reaction of pupils, equal size. THROAT: No erythema or exudates. NECK: No masses, no JVD. CHEST: No chest wall deformity. LUNGS: Equal air entry with scattered rhonchi bilaterally. CVS: S1 and S2 normal with no audible murmur, regular rhythm. ABDOMEN: No hepatosplenomegaly, normal bowel sounds, no guarding or rigidity. CENTRAL NERVOUS SYSTEM: Left-sided hemiplegia, tone is normal in all 4 extremities. EXTREMITIES: There is 1+ peripheral edema. No clubbing, no cyanosis. Peripheral pulses are intact. - Labs CBC & Chem 7: 08/17/24 06:19 08/17/24 06:19 Labs: Abnormal Lab Results - Last 24 Hours (Table) 08/16/24 08/16/24 08/16/24 Range/Units 10:05 10:05 22:53 WBC (4.50-10.00) 10*3/uL RBC (4.10-5.20) 10*6/uL Hgb (12.0-15.0) g/dL Hct (37.2-46.3) % MCHC (32.0-37.0) g/dL MPV (9.5-12.2) fL Immature Gran # (0.00-0.04) 10*3/uL Neutrophils # (1.80-7.70) 10*3/uL Lymphocytes # (0.90-5.00) 10*3/uL Eosinophils # (0.04-0.35) 10*3/uL D-Dimer 0.74 H (<0.60) mg/L FEU Sodium (137-145) mmol/L Potassium (3.5-5.1) mmol/L Chloride (98-107) mmol/L Carbon Dioxide (22-30) mmol/L BUN (7-17) mg/dL Glucose (74-99) mg/dL Magnesium 2.4 H (1.6-2.3) mg/dL Troponin I 0.038 H* (0.000-0.034) ng/mL HDL Cholesterol 21.20 L (40.00-60.00) mg/dL TSH 0.394 L (0.465-4.680) mIU/L 08/17/24 08/17/24 Range/Units 06:19 06:19 WBC 18.81 H (4.50-10.00) 10*3/uL RBC 3.64 L (4.10-5.20) 10*6/uL Hgb 10.3 L (12.0-15.0) g/dL Hct 32.7 L (37.2-46.3) % MCHC 31.5 L (32.0-37.0) g/dL MPV 9.3 L (9.5-12.2) fL Immature Gran # 0.18 H (0.00-0.04) 10*3/uL Neutrophils # 17.15 H (1.80-7.70) 10*3/uL Lymphocytes # 0.73 L (0.90-5.00) 10*3/uL Eosinophils # 0.00 L (0.04-0.35) 10*3/uL D-Dimer (<0.60) mg/L FEU Sodium 130 L (137-145) mmol/L Potassium 2.4 L* (3.5-5.1) mmol/L Chloride 80 L (98-107) mmol/L Carbon Dioxide 40 H (22-30) mmol/L BUN 21 H (7-17) mg/dL Glucose 61 L (74-99) mg/dL Magnesium (1.6-2.3) mg/dL Troponin I (0.000-0.034) ng/mL HDL Cholesterol (40.00-60.00) mg/dL TSH (0.465-4.680) mIU/L Assessment and Plan Assessment: 1. Acute hypoxic respiratory failure; likely multifactorial; related to CHF exacerbation and community-acquired pneumonia - Patient is currently on BiPAP; plan to titrate or wean FiO2 keeping O2 saturation greater than 92% 2. Acute exacerbation CHF - Patient has been placed on IV diuretic; monitor strict FABBY's, daily weights, low-salt and fluid restricted diet; continue with home dose of metolazone 5 mg daily - Recommend 2D echo - Consult cardiology 3. Community-acquired pneumonia - Patient has been placed on IV antibiotics; bronchodilator nebulizer treatments 4 times daily and as needed; will monitor CBC, CRP and procalcitonin - Consult pulmonary; appreciate recommendations 4. Altered mental status; likely toxic metabolic encephalopathy related to abo ve 5. Hyponatremia; sodium level at 127; we will monitor electrolytes closely 6. Hyperlipidemia; Lipitor 40 mg p.o. nightly; Zetia 10 mg daily 7. History of gout; allopurinol 100 mg daily 8. Hypertension; Coreg 3.125 mg daily DVT prophylaxis; SCDs CODE STATUS; full code
[2024-08-17] MEDS: SPIRONOLACTONE 25 MG TAB PO SCH (19:00)
[2024-08-17] MEDS: ACETAMINOPHEN TAB 325 MG TAB PO PRN (21:55)
[2024-08-18 06:41] LABS: Basophils # (A) 0.04 10*3/uL (0.00-0.10); Basophils % (A) 0.3 %; Eosinophils # (A) 0.01 10*3/uL (0.04-0.35); Eosinophils % (A) 0.1 %; HCT 30.4 % (37.2-46.3); HGB 9.6 g/dL (12.0-15.0); Lymphocytes # (A) 0.73 10*3/uL (0.90-5.00); Lymphocytes % (A) 5.0 %; MCH 28.2 pg (27.0-32.0); MCHC 31.6 g/dL (32.0-37.0); MCV 89.1 fL (80.0-97.0); Monocytes # (A) 0.45 10*3/uL (0.20-1.00); Monocytes % (A) 3.1 %; Neutrophils # (A) 13.24 10*3/uL (1.80-7.70); Neutrophils % (A) 89.7 %; Platelet Count 413 10*3/uL (140-440); RBC 3.41 10*6/uL (4.10-5.20); RDW 14.3 % (11.5-14.5); WBC 14.74 10*3/uL (4.50-10.00)
[2024-08-18 07:25] LABS: African American GFR (CKD) 67 (>60 ml/min/1.73 sqM); Anion Gap 10 mmol/L; Blood Urea Nitrogen 26 mg/dL (7-17); Calcium 9.3 mg/dL (8.4-10.2); Carbon Dioxide 38 mmol/L (22-30); Chloride 85 mmol/L (98-107); Glucose 81 mg/dL (74-99); Magnesium 2.5 mg/dL (1.6-2.3); Non-African American GFR(CKD) 58 (>60 ml/min/1.73 sqM); Potassium 3.4 mmol/L (3.5-5.1); Sodium 133 mmol/L (137-145)
--- NOTE | 2024-08-18 11:04 | P.PN ---
Subjective 84-year-old female patient who resides at [facility] on [facility] with previous CVA and left-sided hemiplegia, congestive heart failure, hyperlipidemia, hypertension, lifelong non-smoker who was brought into the emergency room early this morning with shortness of breath and cough. -- Chest x-ray reveals bilateral lower lobe consolidations. -Blood work completed in the ED reveals White count 12.5. Hemoglobin 9.5. Platelets 391. Sodium 127. Potassium 3.6. Bicarb 40. BUN 14. Creatinine 0.38. Troponin 0.042. 0.038. proBNP 5540. - While in the ED patient desaturated and had to be placed on BiPAP; pulmonary consult was placed Patient seen and evaluated sitting up in bed; she is on BiPAP, with settings of 16/8, 60%. She continues on azithromycin and Rocephin. He is much more awake today than she was yesterday. White count was 18.8, hemoglobin 10.3, hematocrit 32.7, platelet count 3 96,000. Sodium 130, potassium 2.4, chlorides 80, CO2 40, BUN 21, creatinine 0.63. Calcium is 9.5. --Pulmonary service on board and recommending to continue with current antibiotic 08/18 Patient mentation improved She still short of breath especially with talking She is not the BiPAP machine overnight Currently she is on oxygen saturating 96% and on 8 L/min At home she said she is just 2 to 4 units Echocardiogram is pending Patient is currently being treated for CHF and pneumonia on ceftriaxone and Zithromax and IV Lasix however her procalcitonin less than 0.20 therefore patient remains on IV Lasix 40 mg twice daily and metolazone 5 mg once daily but also she is on ceftriaxone Zithromax pulmonary pulmonary consult team on the case Active Medications Generic Name Dose Route Start Last Admin Trade Name Freq PRN Reason Stop Dose Admin Acetaminophen 650 mg 08/16/24 10:51 08/17/24 21:55 Acetaminophen Tab 325 Mg Tab PO 650 mg Q4H PRN Administration Pain Albuterol Sulfate 2.5 mg 08/16/24 04:51 08/18/24 08:44 Albuterol Nebulized 2.5 Mg/3 Ml INHALATION 2.5 mg RT-Q4H PRN Administration Shortness Of Breath Or Wheezing Allopurinol 100 mg 08/17/24 09:00 08/18/24 09:14 Allopurinol 100 Mg Tab PO 100 mg DAILY@0900 [facility] Administration Ascorbic Acid 500 mg 08/16/24 21:00 08/17/24 21:17 Ascorbic Acid 500 Mg Tab PO 500 mg Q12HR@ [facility] Administration Aspirin 81 mg 08/17/24 06:00 08/18/24 06:21 Aspirin 81 Mg PO 81 mg DAILY@06 [facility] Administration Atorvastatin Calcium 40 mg 08/16/24 21:00 08/17/24 21:17 Atorvastatin 40 Mg Tab PO 40 mg HS@2099 [facility] Administration Budesonide 0.5 mg 08/16/24 21:00 08/18/24 08:44 Budesonide 0.5 Mg/2 Ml Nebu INHALATION 0.5 mg RT-BID@ [facility] Administration Carvedilol 3.125 mg 08/16/24 21:00 08/18/24 09:14 Carvedilol 3.125 Mg Tab PO 3.125 mg BID@ [facility] Administration Cholecalciferol 10 mcg 08/16/24 21:00 08/17/24 21:55 Cholecalciferol 10 Mcg (400 Iu) Tablet PO 10 mcg Q12HR@ [facility] Administration Ezetimibe 10 mg 08/16/24 21:00 08/17/24 21:17 Ezetimibe 10 Mg Tab PO 10 mg HS@2099 [facility] Administration Ferrous Sulfate 325 mg 08/16/24 21:00 08/18/24 09:15 Ferrous Sulfate 325 Mg Tab PO 325 mg Q12HR@ [facility] Administration Fluticasone Propionate 2 spray 08/17/24 09:00 08/17/24 09:17 Fluticasone Nasal 50mcg/[place] 16gm Btl NASAL Not Given DAILY@0900 [facility] Furosemide 40 mg 08/16/24 12:00 08/18/24 09:15 Furosemide 10 Mg/Ml 4 Ml Vial IV 40 mg Q12HR [facility] Administration Gabapentin 100 mg 08/16/24 21:00 08/18/24 09:15 Gabapentin 100 Mg Cap PO 100 mg Q12HR@899,2099 [facility] Administration Sodium Chloride 1,000 mls @ 20 mls/hr 08/16/24 02:30 08/18/24 02:54 Saline 0.9% IV Not Given .Q24H [facility] Ceftriaxone Sodium 2 gm/ 50 mls @ 100 mls/hr 08/17/24 09:00 08/18/24 09:15 Sodium Chloride IVPB 08/20/24 09:29 100 mls/hr Q24HR [facility] Administration Protocol Lactobacillus Acidophilus 1 each 08/16/24 21:00 08/17/24 21:17 Lactobacillus Acidophilus/Pect 1 Each Capsule PO 1 each BID@0900,2099 [facility] Administration Loratadine 10 mg 08/17/24 09:00 08/18/24 09:14 Loratadine 10 Mg Tab PO 10 mg DAILY@0900 [facility] Administration Magnesium Oxide 400 mg 08/16/24 21:00 08/17/24 21:16 Magnesium Oxide 400 Mg Tab PO 400 mg HS@2100 [facility] Administration Melatonin 3 mg 08/16/24 21:00 08/17/24 21:16 Melatonin 3 Mg Tablet PO 3 mg HS@2100 [facility] Administration Metolazone 5 mg 08/16/24 12:00 08/17/24 12:23 Metolazone 5 Mg Tab PO 5 mg DAILY@1200 [facility] Administration Miscellaneous Information 1 each 08/16/24 04:51 Pneumonia Protocol Utilized 1 Each Misc PO ONCE PRN Per Protocol Miscellaneous Information 1 each 08/17/24 10:01 Potassium Replacement Protocol 1 Each Misc MISCELLANE DAILY PRN Per Protocol Protocol Multivitamins 1 each 08/17/24 09:00 08/18/24 09:14 Multivitamins, Thera 1 Each Tab PO 1 each DAILY@0900 [facility] Administration Pantoprazole Sodium 40 mg 08/17/24 09:00 08/18/24 09:15 Pantoprazole 40 Mg Tablet PO 40 mg DAILY@0900 [facility] Administration Polyethylene Glycol 17 gm 08/17/24 09:00 08/18/24 09:15 Polyethylene Glycol 3350 17 Gm Powd.Pack PO Not Given DAILY@0900 [facility] Potassium Chloride 20 meq 08/16/24 21:00 08/17/24 21:17 Potassium Chloride Er 20 Meq Tab.Er PO 20 meq HS@2100 [facility] Administration Senna 17.2 mg 08/16/24 21:00 08/17/24 21:16 Sennosides 8.6 Mg Tab PO 17.2 mg Q12HR@0900,2099 [facility] Administration Spironolactone 25 mg 08/17/24 18:45 08/18/24 09:14 Spironolactone 25 Mg Tab PO 25 mg DAILY [facility] Administration Objective - Vital Signs Vital signs: Vital Signs Temp 97.4 F L 08/18/24 08:50 Pulse 80 08/18/24 09:03 Resp 20 08/18/24 08:50 BP 115/67 08/18/24 08:50 Pulse Ox 96 08/18/24 09:03 FiO2 60 08/18/24 08:50 Intake & Output 08/17/24 08/18/24 08/18/24 18:59 06:59 18:59 Intake Total 470 Output Total 450 600 400 Balance 20 -600 -400 Weight 86 kg Intake: Intake, IV Titration 470 Amount Azithromycin 500 mg In 250 Sodium Chloride 0.9% 250 ml @ 250 mls/hr IVPB DAILY [facility] Rx#:[id number] Sodium Chloride 0.9% 1, 170 000 ml @ 20 mls/hr IV . Q24H [facility] Rx#:[id number] cefTRIAXone 2 gm In 50 Sodium Chloride 0.9% 50 ml @ 100 mls/hr IVPB Q24HR [facility] Rx#:[id number] Output: Urine 450 600 400 Other: Voiding Method Indwelling Catheter Indwelling Catheter - Exam GENERAL: The patient is alert and oriented x3, not in any acute distress. Well developed, well nourished. HEENT: Pupils are round and equally reacting to light. EOMI. No scleral icterus. No conjunctival pallor. Normocephalic, atraumatic. No pharyngeal erythema. No thyromegaly. CARDIOVASCULAR: S1 and S2 present. No murmurs, rubs, or gallops. PULMONARY: Chest is clear to auscultation, no wheezing , bilateral crackles. ABDOMEN: Soft, nontender, nondistended, normoactive bowel sounds. No palpable organomegaly. MUSCULOSKELETAL: No joint swelling or deformity. EXTREMITIES: No cyanosis, clubbing, or pedal edema. NEUROLOGICAL: Gross neurological examination did not reveal any focal deficits. SKIN: No rashes. no petechiae. - Labs CBC & Chem 7: 08/18/24 05:20 08/18/24 05:20 Labs: Abnormal Lab Results - Last 24 Hours (Table) 08/18/24 08/18/24 Range/Units 05:20 05:20 WBC 14.74 H (4.50-10.00) 10*3/uL RBC 3.41 L (4.10-5.20) 10*6/uL Hgb 9.6 L (12.0-15.0) g/dL Hct 30.4 L (37.2-46.3) % MCHC 31.6 L (32.0-37.0) g/dL MPV 9.4 L (9.5-12.2) fL Immature Gran # 0.27 H (0.00-0.04) 10*3/uL Neutrophils # 13.24 H (1.80-7.70) 10*3/uL Lymphocytes # 0.73 L (0.90-5.00) 10*3/uL Eosinophils # 0.01 L (0.04-0.35) 10*3/uL Sodium 133 L (137-145) mmol/L Potassium 3.4 L (3.5-5.1) mmol/L Chloride 85 L (98-107) mmol/L Carbon Dioxide 38 H (22-30) mmol/L BUN 26 H (7-17) mg/dL Magnesium 2.5 H (1.6-2.3) mg/dL Microbiology - Last 24 Hours (Table) 08/16/24 05:00 Blood Culture - Preliminary Blood Assessment and Plan Assessment: 1. Acute hypoxic respiratory failure; likely multifactorial; related to CHF exacerbation and community-acquired pneumonia - Patient is currently on BiPAP at night time; plan to titrate or wean FiO2 keeping O2 saturation greater than 92% 2. Acute exacerbation CHF most likely diagnosis - Patient has been placed on IV diuretic; monitor strict FABBY's, daily weights, low-salt and fluid restricted diet; continue with home dose of metolazone 5 mg daily - Recommend 2D echo - Consult cardiology 3. Community-acquired pneumonia, possible - Patient has been placed on IV antibiotics; bronchodilator nebulizer treatments 4 times daily and as needed; will monitor CBC, CRP and procalcitonin - Consult pulmonary; appreciate recommendations 4. Altered mental status; likely toxic metabolic encephalopathy related to above 5. Hyponatremia; sodium level at 127; we will monitor electrolytes closely 6. Hyperlipidemia; Lipitor 40 mg p.o. nightly; Zetia 10 mg daily 7. History of gout; allopurinol 100 mg daily 8. Hypertension; Coreg 3.125 mg daily DVT prophylaxis; SCDs CODE STATUS; full code
--- NOTE | 2024-08-18 12:47 | P.PN ---
Subjective HISTORY OF PRESENT ILLNESS: Patient is not able to provide history as she is obtunded and disoriented. History is obtained from the medical chart. There is no family member present at the bedside to provide further history. Apparently patient presented to the hospital because of increased worsening shortness of breath, along with worsening lower extremity edema. There was also concerns of increasing confusion, obtunded state Home medication metolazone 5, carvedilol 3.125 twice daily, Lasix 20 twice daily Zetia 10 aspirin, Lipitor 40, Admission Vitals: BP 116/68, heart rate 60 Admission Labs: Hb 9.5, WBC 12.5, sodium 127, BUN 14, creatinine 0.8, troponin 0.04, NT-proBNP 5500 Admission EKG: Sinus rhythm heart rate 70 bpm, nonspecific ST changes in lateral leads, poor R wave progression, Q waves inferior lead Imaging: Chest x-ray shows mild increased interstitial marking with right-sided consolidation congestive of pneumonia 08/18/2024 Patient examined this wares bedside. Patient currently denies chest pain or pressure. She denies shortness of breath. She is currently on BiPAP. Vital signs are stable. PHYSICAL EXAM: VITAL SIGNS: Reviewed. GENERAL: Well-developed in no acute distress. NECK: Supple. No JVD or thyromegaly LUNGS: Respirations even and unlabored. Lungs essentially clear to auscultation bilaterally. HEART: Regular rate and rhythm. S1 and S2 heard. EXTREMITIES: Normal range of motion. No clubbing or cyanosis. Peripheral pulses intact. No lower extremity edema ASSESSMENT: # Metabolic encephalopathy, multifactorial # Acute hypoxic respiratory failure because of pneumonia and CHF exacerbation # Sepsis # Right lower lobe complicated pneumonia # Acute CHF exacerbation, EF unknown # Hypoalbuminemia and hypoproteinemia, hyponatremia # Anemia PLAN: Continue current cardiac medications including aspirin, Lipitor, carvedilol, Zetia, metolazone, and Aldactone Continue IV Lasix 40 mg every 12 hours Daily weights, accurate intake and output, monitoring of kidney function Further recommendations pending patient course Nurse practitioner note has been reviewed by physician. Signing provider agrees with the documented findings, assessment, and plan of care documented by [employer] as a scribe. Objective - Vital Signs Vital signs: Vital Signs Temp 98.5 F 08/18/24 11:22 Pulse 91 08/18/24 11:22 Resp 19 08/18/24 11:22 BP 117/72 08/18/24 11:22 Pulse Ox 95 08/18/24 12:23 FiO2 50 08/18/24 08:48 Intake & Output 08/17/24 08/18/24 08/18/24 18:59 06:59 18:59 Intake Total 470 Output Total 450 600 400 Balance 20 -600 -400 Weight 86 kg Intake: Intake, IV Titration 470 Amount Azithromycin 500 mg In 250 Sodium Chloride 0.9% 250 ml @ 250 mls/hr IVPB DAILY [facility] Rx#:[id number] Sodium Chloride 0.9% 1, 170 000 ml @ 20 mls/hr IV . Q24H [facility] Rx#:[id number] cefTRIAXone 2 gm In 50 Sodium Chloride 0.9% 50 ml @ 100 mls/hr IVPB Q24HR [facility] Rx#:[id number] Output: Urine 450 600 400 Other: Voiding Method Indwelling Catheter Indwelling Catheter Indwelling Catheter - Labs CBC & Chem 7: 08/18/24 05:20 08/18/24 05:20 Labs: Abnormal Lab Results - Last 24 Hours (Table) 08/18/24 08/18/24 Range/Units 05:20 05:20 WBC 14.74 H (4.50-10.00) 10*3/uL RBC 3.41 L (4.10-5.20) 10*6/uL Hgb 9.6 L (12.0-15.0) g/dL Hct 30.4 L (37.2-46.3) % MCHC 31.6 L (32.0-37.0) g/dL MPV 9.4 L (9.5-12.2) fL Immature Gran # 0.27 H (0.00-0.04) 10*3/uL Neutrophils # 13.24 H (1.80-7.70) 10*3/uL Lymphocytes # 0.73 L (0.90-5.00) 10*3/uL Eosinophils # 0.01 L (0.04-0.35) 10*3/uL Sodium 133 L (137-145) mmol/L Potassium 3.4 L (3.5-5.1) mmol/L Chloride 85 L (98-107) mmol/L Carbon Dioxide 38 H (22-30) mmol/L BUN 26 H (7-17) mg/dL Magnesium 2.5 H (1.6-2.3) mg/dL Microbiology - Last 24 Hours (Table) 08/16/24 05:00 Blood Culture - Preliminary Blood
[2024-08-18] MEDS ORDERED: Potassium Replacement Protocol 1 EACH MISC MISCELLANE PRN (13:48)
[2024-08-18] MEDS: POTASSIUM CHLORIDE ER 20 MEQ TAB.ER PO SCH (17:24)
--- NOTE | 2024-08-18 18:44 | P.PN ---
Subjective Progress Note Date: 08/18/24 On 08/18/2024, the patient is being seen for a follow-up. This is a 84-year-old female patient who is currently being seen for CHF and the patient is being treated accordingly. The chest x-ray showed also small bilateral pleural effusions along with cardiomegaly. The patient has extensive instrumentation and spinal fixation involving the thoracic spine. The patient is currently on Coreg 3.125 mg twice a day, Lasix 40 mg IV every 12 hours and Aldactone 25 mg p.o. daily. The patient is also on Zaroxolyn 5 mg p.o. daily. The patient is maintained on oxygen and she is currently on 7 L with a pulse ox of 93%. Blood work from today shows a white cell count of 14.7 with a hemoglobin 9.6 and a platelet count of 413. Sodium is at 133, potassium is at 3.4, BUN is at 26 with a creatinine of 0.9. Serum bicarb is at 38. The patient is also on empiric antibiotic coverage and the patient remains on IV Rocephin. Rest of the medications remain essentially unchanged. Noted, the patient was initially on a BiPAP and the patient is currently off the BiPAP on 7 L of oxygen by nasal cannula. Objective - Vital Signs Vital signs: Vital Signs Temp 98.5 F 08/18/24 11:22 Pulse 91 08/18/24 11:22 Resp 19 08/18/24 11:22 BP 117/72 08/18/24 11:22 Pulse Ox 95 08/18/24 12:23 FiO2 50 08/18/24 08:48 Intake & Output 08/17/24 08/18/24 08/18/24 18:59 06:59 18:59 Intake Total 470 118 Output Total 450 600 400 Balance 600 -621 Weight 86 kg Intake: Intake, IV Titration 470 Amount Azithromycin 500 mg In 250 Sodium Chloride 0.9% 250 ml @ 250 mls/hr IVPB DAILY [facility] Rx#:[id number] Sodium Chloride 0.9% 1, 170 000 ml @ 20 mls/hr IV . Q24H [facility] Rx#:[id number] cefTRIAXone 2 gm In 50 Sodium Chloride 0.9% 50 ml @ 100 mls/hr IVPB Q24HR [facility] Rx#:[id number] Oral 118 Output: Urine 450 600 400 Other: Voiding Method Indwelling Catheter Indwelling Catheter Indwelling Catheter - Exam No significant respiratory distress at rest, currently off the BiPAP and the patient is currently on 7 L of oxygen by nasal cannula HEENT examination is grossly unremarkable. Mucous membranes are moist. No oral lesions. Neck supple. Full range of motion. No adenopathy thyromegaly or neck vein distention. Cardiovascular examination reveals regular rhythm rate. S1-S2 normal. No S3 or S4. No discernible murmur noted. Lungs reveal scattered rhonchi. No wheezes. Basilar crackles are noted. Breath sounds are equal. Abdomen soft bowel sounds are heard. No masses or tenderness. Extremities are intact. Trace edema noted, probably 1+. Skin is without rash or lesion. Neurologic examination is brief but nonfocal. - Labs CBC & Chem 7: 08/18/24 05:20 08/18/24 05:20 Labs: Abnormal Lab Results - Last 24 Hours (Table) 08/18/24 08/18/24 Range/Units 05:20 05:20 WBC 14.74 H (4.50-10.00) 10*3/uL RBC 3.41 L (4.10-5.20) 10*6/uL Hgb 9.6 L (12.0-15.0) g/dL Hct 30.4 L (37.2-46.3) % MCHC 31.6 L (32.0-37.0) g/dL MPV 9.4 L (9.5-12.2) fL Immature Gran # 0.27 H (0.00-0.04) 10*3/uL Neutrophils # 13.24 H (1.80-7.70) 10*3/uL Lymphocytes # 0.73 L (0.90-5.00) 10*3/uL Eosinophils # 0.01 L (0.04-0.35) 10*3/uL Sodium 133 L (137-145) mmol/L Potassium 3.4 L (3.5-5.1) mmol/L Chloride 85 L (98-107) mmol/L Carbon Dioxide 38 H (22-30) mmol/L BUN 26 H (7-17) mg/dL Magnesium 2.5 H (1.6-2.3) mg/dL Microbiology - Last 24 Hours (Table) 08/16/24 05:00 Blood Culture - Preliminary Blood Assessment and Plan Plan: Acute hypoxic respiratory failure most likely related to CHF with bilateral pleural effusion. Pneumonia is possible although felt to be less likely at this stage. The patient was initially supported with the BiPAP and the patient is currently on 7 L of oxygen by nasal cannula. BiPAP has been discontinued. Altered mental status secondary to above, improved and the patient is able to communicate Hyponatremia, improved and the sodium level is normal Mild leukocytosis, improving Mild anemia. History of CVA with left-sided hemiplegia. Extensive thoracic spine surgery with instrumentation and spinal fusion. History of gout. Hyperlipidemia. Lifelong non-smoker. [facility] resident. Plan: Patient currently off the BiPAP and 7 L of oxygen by nasal cannula Continue Lasix and the patient is currently on Lasix 40 mg IV every 12 hours. He is also on Zaroxolyn 5 mg p.o. daily and Aldactone 25 mg p.o. daily. Continue empiric antibiotic coverage with IV Rocephin Echocardiogram completed and the results are still pending for now Monitor electrolytes Continue Coreg 3.125 mg twice a day Rest of the medication were reviewed. The patient is on aspirin. The patient on Lipitor. Will continue to follow.
[2024-08-18] MEDS: SODIUM CHLORIDE 0.9% 500 ML 250 ML IV ONE (23:51)
--- NOTE | 2024-08-19 00:39 | XR ---
EXAM: XR Chest, 1 View CLINICAL HISTORY: ITS.REASON XR Reason: increased O2 demand, SOB TECHNIQUE: Frontal view of the chest. COMPARISON: No relevant prior studies available. FINDINGS: Lungs: Unremarkable. No consolidation. Pleural space: Small bilateral pleural effusions. No pneumothorax. Heart: Cardiomegaly. Mediastinum: Unremarkable. Bones/joints: Multilevel posterior fusion hardware. IMPRESSION: Small bilateral pleural effusions. Cardiomegaly. Correlate for CHF.
[2024-08-19] MEDS: SODIUM CHLORIDE 0.9% 500 ML 250 ML IV ONE (01:50)
[2024-08-19 05:58] LABS: ABG PCO2 65 mmHg (35-45); ABG PH 7.44 (7.35-7.45); ABG PO2 78 mmHg (83-108); ABG TCO2 45 mmol/L (19-24); Allen Test Performed? Yes
[2024-08-19 06:00] LABS: ABG HCO3 43 mmol/L (21-25)
[2024-08-19 07:07] LABS: Basophils # (A) 0.02 10*3/uL (0.00-0.10); Basophils % (A) 0.1 %; Eosinophils # (A) 0.03 10*3/uL (0.04-0.35); Eosinophils % (A) 0.2 %; HCT 32.9 % (37.2-46.3); HGB 10.2 g/dL (12.0-15.0); Lymphocytes # (A) 0.69 10*3/uL (0.90-5.00); Lymphocytes % (A) 4.1 %; MCH 27.9 pg (27.0-32.0); MCHC 31.0 g/dL (32.0-37.0); MCV 90.1 fL (80.0-97.0); Monocytes # (A) 0.73 10*3/uL (0.20-1.00); Monocytes % (A) 4.3 %; Neutrophils # (A) 15.15 10*3/uL (1.80-7.70); Neutrophils % (A) 89.5 %; Platelet Count 370 10*3/uL (140-440); RBC 3.65 10*6/uL (4.10-5.20); RDW 14.7 % (11.5-14.5); WBC 16.92 10*3/uL (4.50-10.00)
[2024-08-19 07:27] LABS: African American GFR (CKD) 85 (>60 ml/min/1.73 sqM); Blood Urea Nitrogen 30 mg/dL (7-17); Calcium 9.4 mg/dL (8.4-10.2); Chloride 88 mmol/L (98-107); Glucose 157 mg/dL (74-99); Non-African American GFR(CKD) 74 (>60 ml/min/1.73 sqM); Potassium 3.5 mmol/L (3.5-5.1); Sodium 135 mmol/L (137-145)
[2024-08-19 07:36] LABS: Anion Gap 8 mmol/L
[2024-08-19 07:37] LABS: Carbon Dioxide 39 mmol/L (22-30)
--- NOTE | 2024-08-19 08:26 | P.PN ---
Subjective 84-year-old female patient who resides at [facility] [place] with previous CVA and left-sided hemiplegia, congestive heart failure, hyperlipidemia, hypertension, lifelong non-smoker who was brought into the emergency room early this morning with shortness of breath and cough. -- Chest x-ray reveals bilateral lower lobe consolidations. -Blood work completed in the ED reveals White count 12.5. Hemoglobin 9.5. Platelets 391. Sodium 127. Potassium 3.6. Bicarb 40. BUN 14. Creatinine 0.38. Troponin 0.042. 0.038. proBNP 5540. - While in the ED patient desaturated and had to be placed on BiPAP; pulmonary consult was placed Patient seen and evaluated sitting up in bed; she is on BiPAP, with settings of 16/8, 60%. She continues on azithromycin and Rocephin. He is much more awake today than she was yesterday. White count was 18.8, hemoglobin 10.3, hematocrit 32.7, platelet count 3 96,000. Sodium 130, potassium 2.4, chlorides 80, CO2 40, BUN 21, creatinine 0.63. Calcium is 9.5. --Pulmonary service on board and recommending to continue with current antibiotic 08/18 Patient mentation improved She still short of breath especially with talking She is not the BiPAP machine overnight Currently she is on oxygen saturating 96% and on 8 L/min At home she said she is just 2 to 4 units Echocardiogram is pending Patient is currently being treated for CHF and pneumonia on ceftriaxone and Zithromax and IV Lasix however her procalcitonin less than 0.20 therefore patient remains on IV Lasix 40 mg twice daily and metolazone 5 mg once daily but also she is on ceftriaxone Zithromax pulmonary pulmonary consult team on the case 08/19 Patient with acute CHF on IV Lasix 4 mg twice daily 100 requiring BiPAP at night. Became hypotensive hog cutter around 630, blood pressure was 80s/30s, she was transferred to the ICU on his presentation but needs mechanical ventilation however patient reports no chest pain no other new complaints. Patient made about [id number] mL urine output yesterday. Patient was transferred to the ICU anticipating she might need pressors. Resumed 2 boluses of normal saline to 50 mL, blood pressure improved and currently 100/69 and higher. Chest x-ray from today showing cardiomegaly and bilateral basal infiltrates, correlate for CHF. I reviewed chest x-ray by myself and agree. Remains on IV Lasix milligram twice daily metolazone 5 mg once daily and ceftriaxone Active Medications Generic Name Dose Route Start Last Admin Trade Name Freq PRN Reason Stop Dose Admin Acetaminophen 650 mg 08/16/24 10:51 08/17/24 21:55 Acetaminophen Tab 325 Mg Tab PO 650 mg Q4H PRN Administration Pain Albuterol Sulfate 2.5 mg 08/16/24 04:51 08/19/24 06:00 Albuterol Nebulized 2.5 Mg/3 Ml INHALATION 2.5 mg RT-Q4H PRN Administration Shortness Of Breath Or Wheezing Allopurinol 100 mg 08/17/24 09:00 08/18/24 09:14 Allopurinol 100 Mg Tab PO 100 mg DAILY@0900 SUKHDEEP Administration Ascorbic Acid 500 mg 08/16/24 21:00 08/18/24 21:09 Ascorbic Acid 500 Mg Tab PO 500 mg Q12HR@ SUKHDEEP Administration Aspirin 81 mg 08/17/24 06:00 08/19/24 05:40 Aspirin 81 Mg PO Not Given DAILY@0600 SUKHDEEP Atorvastatin Calcium 40 mg 08/16/24 21:00 08/18/24 21:09 Atorvastatin 40 Mg Tab PO 40 mg HS@2099 SUKHDEEP Administration Budesonide 0.5 mg 08/16/24 21:00 08/19/24 06:00 Budesonide 0.5 Mg/2 Ml Nebu INHALATION 0.5 mg RT-BID@899,2099 SUKHDEEP Administration Carvedilol 3.125 mg 08/16/24 21:00 08/18/24 21:09 Carvedilol 3.125 Mg Tab PO 3.125 mg BID@0900,2099 SUKHDEEP Administration Cholecalciferol 10 mcg 08/16/24 21:00 08/18/24 23:26 Cholecalciferol 10 Mcg (400 Iu) Tablet PO 10 mcg Q12HR@899,2099 SUKHDEEP Administration Ezetimibe 10 mg 08/16/24 21:00 08/18/24 21:09 Ezetimibe 10 Mg Tab PO 10 mg HS@2100 SUKHDEEP Administration Ferrous Sulfate 325 mg 08/16/24 21:00 08/18/24 21:09 Ferrous Sulfate 325 Mg Tab PO 325 mg Q12HR@0900,2099 SUKHDEEP Administration Fluticasone Propionate 2 spray 08/17/24 09:00 08/18/24 17:30 Fluticasone Nasal 50mcg/Providence 16gm Btl NASAL 2 spray DAILY@0900 SUKHDEEP Administration Furosemide 40 mg 08/16/24 12:00 08/18/24 21:09 Furosemide 10 Mg/Ml 4 Ml Vial IV 40 mg Q12HR SUKHDEEP Administration Gabapentin 100 mg 08/16/24 21:00 08/18/24 21:09 Gabapentin 100 Mg Cap PO 100 mg Q12HR@0900,2099 SUKHDEEP Administration Sodium Chloride 1,000 mls @ 20 mls/hr 08/16/24 02:30 08/19/24 03:56 Saline 0.9% IV Not Given .Q24H SUKHDEEP Ceftriaxone Sodium 2 gm/ 50 mls @ 100 mls/hr 08/17/24 09:00 08/18/24 09:15 Sodium Chloride IVPB 08/20/24 09:29 100 mls/hr Q24HR SUKHDEEP Administration Protocol Lactobacillus Acidophilus 1 each 08/16/24 21:00 08/18/24 21:09 Lactobacillus Acidophilus/Pect 1 Each Capsule PO 1 each BID@0900,2099 SUKHDEEP Administration Loratadine 10 mg 08/17/24 09:00 08/18/24 09:14 Loratadine 10 Mg Tab PO 10 mg DAILY@0900 SUKHDEEP Administration Magnesium Oxide 400 mg 08/16/24 21:00 08/18/24 21:09 Magnesium Oxide 400 Mg Tab PO 400 mg HS@2100 SUKHDEEP Administration Melatonin 3 mg 08/16/24 21:00 08/18/24 21:09 Melatonin 3 Mg Tablet PO 3 mg HS@2100 SUKHDEEP Administration Metolazone 5 mg 08/16/24 12:00 08/18/24 12:44 Metolazone 5 Mg Tab PO 5 mg DAILY@1200 SUKHDEEP Administration Miscellaneous Information 1 each 08/16/24 04:51 Pneumonia Protocol Utilized 1 Each Misc PO ONCE PRN Per Protocol Miscellaneous Information 1 each 08/17/24 10:01 Potassium Replacement Protocol 1 Each Misc MISCELLANE DAILY PRN Per Protocol Protocol Miscellaneous Information 1 each 08/18/24 13:48 Potassium Replacement Protocol 1 Each Misc MISCELLANE DAILY PRN Per Protocol Protocol Multivitamins 1 each 08/17/24 09:00 08/18/24 09:14 Multivitamins, Thera 1 Each Tab PO 1 each DAILY@0900 [facility] Administration Pantoprazole Sodium 40 mg 08/17/24 09:00 08/18/24 09:15 Pantoprazole 40 Mg Tablet PO 40 mg DAILY@0900 [facility] Administration Polyethylene Glycol 17 gm 08/17/24 09:00 08/18/24 09:15 Polyethylene Glycol 3350 17 Gm Powd.Pack PO Not Given DAILY@0900 [facility] Potassium Chloride 20 meq 08/16/24 21:00 08/18/24 20:59 Potassium Chloride Er 20 Meq Tab.Er PO Not Given HS@2099 [facility] Senna 17.2 mg 08/16/24 21:00 08/18/24 21:09 Sennosides 8.6 Mg Tab PO 17.2 mg Q12HR@899,2099 [facility] Administration Spironolactone 25 mg 08/17/24 18:45 08/18/24 09:14 Spironolactone 25 Mg Tab PO 25 mg DAILY SUKHDEEP Administration Objective - Vital Signs Vital signs: Vital Signs Temp 97.9 F 08/19/24 03:34 Pulse 70 08/19/24 06:23 Resp 20 08/19/24 05:51 BP 100/69 08/19/24 05:51 Pulse Ox 95 08/19/24 05:51 FiO2 70 08/19/24 08:11 Intake & Output 08/18/24 08/19/24 08/19/24 18:59 06:59 18:59 Intake Total 236 10 Output Total 800 375 Balance -564 -365 Weight 86 kg Intake: IV 10 0.9 10 Oral 236 Output: Urine 800 375 Other: Voiding Method Indwelling Catheter Indwelling Catheter # Bowel Movements 1 - Exam GENERAL: The patient is alert and oriented x3, not in any acute distress. Well developed, well nourished. HEENT: Pupils are round and equally reacting to light. EOMI. No scleral icterus. No conjunctival pallor. Normocephalic, atraumatic. No pharyngeal erythema. No thyromegaly. CARDIOVASCULAR: S1 and S2 present. No murmurs, rubs, or gallops. PULMONARY: Chest is clear to auscultation, no wheezing , bilateral crackles. ABDOMEN: Soft, nontender, nondistended, normoactive bowel sounds. No palpable organomegaly. MUSCULOSKELETAL: No joint swelling or deformity. EXTREMITIES: No cyanosis, clubbing, or pedal edema. NEUROLOGICAL: Gross neurological examination did not reveal any focal deficits. SKIN: No rashes. no petechiae. - Labs CBC & Chem 7: 08/19/24 06:56 08/19/24 06:56 Labs: Abnormal Lab Results - Last 24 Hours (Table) 08/19/24 08/19/24 08/19/24 Range/Units 05:53 06:56 06:56 WBC 16.92 H (4.50-10.00) 10*3/uL RBC 3.65 L (4.10-5.20) 10*6/uL Hgb 10.2 L (12.0-15.0) g/dL Hct 32.9 L (37.2-46.3) % MCHC 31.0 L (32.0-37.0) g/dL MPV 8.9 L (9.5-12.2) fL Immature Gran # 0.30 H (0.00-0.04) 10*3/uL Neutrophils # 15.15 H (1.80-7.70) 10*3/uL Lymphocytes # 0.69 L (0.90-5.00) 10*3/uL Eosinophils # 0.03 L (0.04-0.35) 10*3/uL ABG pCO2 65 H (35-45) mmHg ABG pO2 78 L (83-108) mmHg ABG HCO3 43 H* (21-25) mmol/L ABG Total CO2 45 H (19-24) mmol/L Hemoglobin 10.0 L (11.4-16.0) gm/dL Sodium 135 L (137-145) mmol/L Chloride 88 L (98-107) mmol/L Carbon Dioxide 39 H (22-30) mmol/L BUN 30 H (7-17) mg/dL Glucose 157 H (74-99) mg/dL Microbiology - Last 24 Hours (Table) 08/16/24 05:00 Blood Culture - Preliminary Blood Assessment and Plan Assessment: 1. Acute hypoxic respiratory failure; likely multifactorial; related to CHF exacerbation and community-acquired pneumonia - Patient is currently on BiPAP at night time; plan to titrate or wean FiO2 keeping O2 saturation greater than 92% 2. Acute exacerbation CHF most likely diagnosis - Patient has been placed on IV diuretic; monitor strict FABBY's, daily weights, low-salt and fluid restricted diet; continue with home dose of metolazone 5 mg daily - Recommend 2D echo - Consult cardiology 3. Community-acquired pneumonia, possible - Patient has been placed on IV antibiotics; bronchodilator nebulizer treatments 4 times daily and as needed; will monitor CBC, CRP and procalcitonin - Consult pulmonary; appreciate recommendations 4. Altered mental status; likely toxic metabolic encephalopathy related to above 5. Hyponatremia; sodium level at 127; we will monitor electrolytes closely 6. Hyperlipidemia; Lipitor 40 mg p.o. nightly; Zetia 10 mg daily 7. History of gout; allopurinol 100 mg daily 8. Hypertension; Coreg 3.125 mg daily DVT prophylaxis; SCDs CODE STATUS; full code
--- NOTE | 2024-08-19 09:43 | P.PN ---
Subjective Progress Note Date: 08/19/24 The patient is an 84-year-old female who presented to the emergency room with mental status changes and shortness of breath. She was found to have bilateral pneumonia as well as CHF exacerbation. Mental status improved with BiPAP. Patient has been diuresed over the last 48 hours, however she became hypotensive and therefore was transferred to the ICU. Patient interviewed and examined resting comfortably on BiPAP. Arouses to physical stimuli. GENERAL: Well-appearing, well-nourished and in no acute distress. NECK: Supple without JVD or thyromegaly. LUNGS: Breath sounds coarse to auscultation bilaterally. Respiration equal and unlabored. HEART: Regular rate and rhythm without murmurs, rubs or gallops. S1 and S2 heard. EXTREMITIES: Normal range of motion, no edema. No clubbing or cyanosis. P eripheral pulses intact and strong. TELEMETRY: Sinus rhythm overnight LABS: WBC 16.9, hemoglobin 10.2, hematocrit 32.9, platelet 390, sodium 135, potassium 3.5, BUN 30, creatinine 0.76 IMPRESSION: Mental status changes Metabolic encephalopathy Acute hypoxic respiratory failure, secondary to pneumonia and CHF Sepsis, secondary to right lower lobe complicated pneumonia Acute CHF, awaiting echocardiogram Anemia PLAN: Continue supportive treatment Aggressive pulmonary hygiene as tolerated Awaiting echocardiogram results Further recommendations to be based upon clinical course I am dictating on behalf of Dr Nasim Lance's history/physical and assessment/plan. Objective - Vital Signs Vital signs: Vital Signs Temp 97.9 F 08/19/24 03:34 Pulse 70 08/19/24 06:23 Resp 20 08/19/24 05:51 BP 100/69 08/19/24 05:51 Pulse Ox 95 08/19/24 05:51 FiO2 60 08/19/24 09:29 Intake & Output 08/18/24 08/19/24 08/19/24 18:59 06:59 18:59 Intake Total 236 10 Output Total 800 375 Balance -564 -365 Weight 86 kg Intake: IV 10 0.9 10 Oral 236 Output: Urine 800 375 Other: Voiding Method Indwelling Catheter Indwelling Catheter # Bowel Movements 1 - Labs CBC & Chem 7: 08/19/24 06:56 08/19/24 06:56 Labs: Abnormal Lab Results - Last 24 Hours (Table) 0608/19/24 08/19/24 Range/Units 05:53 06:56 06:56 WBC 16.92 H (4.50-10.00) 10*3/uL RBC 3.65 L (4.10-5.20) 10*6/uL Hgb 10.2 L (12.0-15.0) g/dL Hct 32.9 L (37.2-46.3) % MCHC 31.0 L (32.0-37.0) g/dL MPV 8.9 L (9.5-12.2) fL Immature Gran # 0.30 H (0.00-0.04) 10*3/uL Neutrophils # 15.15 H (1.80-7.70) 10*3/uL Lymphocytes # 0.69 L (0.90-5.00) 10*3/uL Eosinophils # 0.03 L (0.04-0.35) 10*3/uL ABG pCO2 65 H (35-45) mmHg ABG pO2 78 L (83-108) mmHg ABG HCO3 43 H* (21-25) mmol/L ABG Total CO2 45 H (19-24) mmol/L Hemoglobin 10.0 L (11.4-16.0) gm/dL Sodium 135 L (137-145) mmol/L Chloride 88 L (98-107) mmol/L Carbon Dioxide 39 H (22-30) mmol/L BUN 30 H (7-17) mg/dL Glucose 157 H (74-99) mg/dL Microbiology - Last 24 Hours (Table) 08/16/24 05:00 Blood Culture - Preliminary Blood
[2024-08-19] MEDS: ENOXAPARIN 40 MG/0.4 ML SYRINGE SQ SCH (11:20)
[2024-08-19] MEDS: methylPREDNISolone SOD SUCCI 125 MG/2 ML VIAL IV SCH (11:35)
[2024-08-19] MEDS: POTASSIUM CHLORIDE ER 20 MEQ TAB.ER PO STA (11:37)
[2024-08-19] MEDS ORDERED: MIDODRINE 5 MG TAB PO SCH (12:30)
--- NOTE | 2024-08-19 16:39 | P.PN ---
Subjective Progress Note Date: 08/19/24 On 08/18/2024, the patient is being seen for a follow-up. This is a 84-year-old female patient who is currently being seen for CHF and the patient is being treated accordingly. The chest x-ray showed also small bilateral pleural effusions along with cardiomegaly. The patient has extensive instrumentation and spinal fixation involving the thoracic spine. The patient is currently on Coreg 3.125 mg twice a day, Lasix 40 mg IV every 12 hours and Aldactone 25 mg p.o. daily. The patient is also on Zaroxolyn 5 mg p.o. daily. The patient is maintained on oxygen and she is currently on 7 L with a pulse ox of 93%. Blood work from today shows a white cell count of 14.7 with a hemoglobin 9.6 and a platelet count of 413. Sodium is at 133, potassium is at 3.4, BUN is at 26 with a creatinine of 0.9. Serum bicarb is at 38. The patient is also on empiric antibiotic coverage and the patient remains on IV Rocephin. Rest of the medications remain essentially unchanged. Noted, the patient was initially on a BiPAP and the patient is currently off the BiPAP on 7 L of oxygen by nasal cannula. On 08/19/2024, the patient became very intensive care unit. The patient got transferred to the ICU overnight as the patient was found to be more hypoxic and more short of breath and she also had a drop in her blood pressure. She was given a bolus of 500 cc and the patient's blood pressure has normalized. She was on 60s of oxygen by nasal cannula and the patient was transitioned to BiPAP at a pressure of 18 over 8 cm of water with an FiO2 of 60%. For now, the patient is tolerating the BiPAP reasonably well. Her minute ventilation is around 6.8 L/min and the generated tidal volume is 270 cc. The blood gas showed a pH of 7.44 with a PCO2 of 65 and PO2 of 78 and a fluid balance is -929 cc over the past 24 hours. The patient remains on DuoNebtreatment [id number]. The patient remains on IV Solu-Medrol. The diuretics will be placed on hold as the patient has developed alkalosis. The sodium levels at 135, potassium is 3.5, bicarb is at 39 with a chloride of 88. BUN is 30 with a creatinine of 0.7. WBC count 16.9 with a hemoglobin 10.2 and a platelet count of 370. Chest x-ray from this morning shows small bilateral pleural effusion and cardiomegaly. Clinically, the patient is tolerating the BiPAP well. The patient is arousable. No focal neurological deficits. Echocardiogram was ordered and this has not been completed yet. Objective - Vital Signs Vital signs: Vital Signs Temp 97.9 F 08/19/24 03:34 Pulse 70 08/19/24 06:23 Resp 20 08/19/24 05:51 BP 100/69 08/19/24 05:51 Pulse Ox 95 08/19/24 05:51 FiO2 70 08/19/24 08:11 Intake & Output 08/18/24 08/19/24 08/19/24 18:59 06:59 18:59 Intake Total 236 10 Output Total 800 375 Balance -564 -365 Weight 86 kg Intake: IV 10 0.9 10 Oral 236 Output: Urine 800 375 Other: Voiding Method Indwelling Catheter Indwelling Catheter # Bowel Movements 1 - Exam No significant respiratory distress at rest, currently on BiPAP at a pressure of 18 over 8 cm of water and FiO2 of 60%. Arousable, weak, able to communicate and moving all 4 extremities without any limitation. HEENT examination is grossly unremarkable. Mucous membranes are moist. No oral lesions. Neck supple. Full range of motion. No adenopathy thyromegaly or neck vein distention. Cardiovascular examination reveals regular rhythm rate. S1-S2 normal. No S3 or S4. No discernible murmur noted. Lungs reveal scattered rhonchi. No wheezes. Basilar crackles are noted. Breath sounds are equal. The breath sounds are still marked diminished bilaterally. Abdomen soft bowel sounds are heard. No masses or tenderness. Extremities are intact. No significant lower extremity edema on today's evaluation and the pitting edema is improved. Skin is without rash or lesion. Neurologic examination is brief but nonfocal. - Labs CBC & Chem 7: 08/19/24 06:56 08/19/24 14:10 Labs: Abnormal Lab Results - Last 24 Hours (Table) 08/19/24 08/19/24 08/19/24 Range/Units 05:53 06:56 06:56 WBC 16.92 H (4.50-10.00) 10*3/uL RBC 3.65 L (4.10-5.20) 10*6/uL Hgb 10.2 L (12.0-15.0) g/dL Hct 32.9 L (37.2-46.3) % MCHC 31.0 L (32.0-37.0) g/dL MPV 8.9 L (9.5-12.2) fL Immature Gran # 0.30 H (0.00-0.04) 10*3/uL Neutrophils # 15.15 H (1.80-7.70) 10*3/uL Lymphocytes # 0.69 L (0.90-5.00) 10*3/uL Eosinophils # 0.03 L (0.04-0.35) 10*3/uL ABG pCO2 65 H (35-45) mmHg ABG pO2 78 L (83-108) mmHg ABG HCO3 43 H* (21-25) mmol/L ABG Total CO2 45 H (19-24) mmol/L Hemoglobin 10.0 L (11.4-16.0) gm/dL Sodium 135 L (137-145) mmol/L Chloride 88 L (98-107) mmol/L Carbon Dioxide 39 H (22-30) mmol/L BUN 30 H (7-17) mg/dL Glucose 157 H (74-99) mg/dL Microbiology - Last 24 Hours (Table) 08/16/24 05:00 Blood Culture - Preliminary Blood Assessment and Plan Plan: Acute hypoxic respiratory failure most likely related to COPD, chronic restrictive lung disease related to obesity and a component of CHF with bilateral pleural effusion. Pneumonia is possible although felt to be less likely at this stage. The patient has a component of an acute on top of chronic hypoxic and hypercapnic respiratory failure, currently on a BiPAP pressure of 18 over 8 cm of water and FiO2 of 60%. Blood gas were noted. Altered mental status secondary to above, improved while being on the BiPAP. Hyponatremia, improved and the sodium level is normal Mild leukocytosis Chronic anemia History of CVA with left-sided hemiplegia. Extensive thoracic spine surgery with instrumentation and spinal fusion. History of gout. Hyperlipidemia. Lifelong non-smoker. [facility] resident. Plan: Patient currently on BiPAP at a pressure of 18/8 with FiO2 of 60% Keep the patient on BiPAP throughout the day and overnight Obtain follow-up blood gas in a.m. Obtain a follow-up chest x-ray in a.m. Discontinue the Zaroxolyn and Aldactone and keep the patient on IV Lasix. Give the patient Diamox 500 mg IV every 12 hours x 2 doses. Continue empiric antibiotic coverage with IV Rocephin Echocardiogram completed and the results are still pending for now Monitor electrolytes Continue Coreg 3.125 mg twice a day Monitor respiratory status Monitor mental status She is a DNR/DNI CODE STATUS Rest of the medication were reviewed. The patient is on aspirin. The patient on Lipitor. Will continue to follow. This is a critical care evaluation that was done in 35 minutes. Time with Patient: Greater than 30
[2024-08-20 07:16] LABS: HCT 34.6 % (37.2-46.3); HGB 10.2 g/dL (12.0-15.0); MCH 27.3 pg (27.0-32.0); MCHC 29.5 g/dL (32.0-37.0); MCV 92.8 fL (80.0-97.0); Platelet Count 374 10*3/uL (140-440); RBC 3.73 10*6/uL (4.10-5.20); RDW 14.6 % (11.5-14.5); WBC 12.10 10*3/uL (4.50-10.00)
[2024-08-20 07:33] LABS: African American GFR (CKD) 60 (>60 ml/min/1.73 sqM); Anion Gap 8 mmol/L; Blood Urea Nitrogen 31 mg/dL (7-17); Calcium 9.7 mg/dL (8.4-10.2); Chloride 88 mmol/L (98-107); Glucose 171 mg/dL (74-99); Magnesium 2.6 mg/dL (1.6-2.3); Non-African American GFR(CKD) 52 (>60 ml/min/1.73 sqM); Potassium 3.6 mmol/L (3.5-5.1); Sodium 136 mmol/L (137-145)
[2024-08-20 07:52] LABS: Carbon Dioxide 40 mmol/L (22-30)
--- NOTE | 2024-08-20 08:14 | XR ---
EXAMINATION TYPE: XR chest 1V portable DATE OF EXAM: 08/20/2024 6:02 AM COMPARISON: 08/19/2024 CLINICAL INDICATION: Female, 84 years old with history of follow up CHF exacerbation, , FINDINGS: Extensive posterior thoracic fusion hardware with multiple levels of vertebroplasty. Right heart tatiana in is obscured as it projects over the spine. There is a dense oblique oriented opacity projecting be hind the heart. Opacity at the right base may be increased now. Upper lungs remain clear. IMPRESSION: 1. Possible left lower lobar collapse given the obliquely oriented opacity projecting behind the hear t. Attention on follow-up and appropriate evaluation/management recommended. 2. Right basilar airspace disease may have worsened. Direct comparison to the prior is limited as it was a semiupright exam. [facility], , 08/20/2024 8:12 AM
[2024-08-20] MEDS: POTASSIUM CHLORIDE ER 20 MEQ TAB.ER PO STA (08:50)
--- NOTE | 2024-08-20 09:59 | P.CONS ---
History of Present Illness - Reason for Consult Consult date: 08/20/24 wound care - History of Present Illness This is an 84-year-old patient being seen in the ICU for stage II pressure ulcer to the right and left buttocks. Patient has multiple open ulcerations noted measuring approximately 4 x 6 x 0.2 cm with slough and nonviable tissue present bruising noted. Patient has excoriation and maceration to the periwound. At this time they are utilizing honey gel. Patient's past medical history is significant for CVA currently residing at [facility], GERD, hyperlipidemia, hypertension, heart failure lifelong non-smoker denies diabetes. Review Of Systems: Constitutional: No fever, no chills, no night sweats. No weight change. No weakness, fatigue or lethargy. No daytime sleepiness. Integumentary:reports wounds, no lesions. No rash or pruritus. No unusual bruising. No change in hair or nails. Physical exam: General Appearance: Alert, cooperative, no distress, appears stated age. Skin: See HPI all other Skin color, texture, tugor normal, no rashes or lesions. Neurologic: Alert oriented x3 Assessment: 1. Stage II pressure ulcer right buttocks 2. Stage II pressure ulcer left buttocks 3. Stage II pressure ulcer coccyx Plan: 1. Apply honey gel to the open ulcerations zinc barrier cream to the periwound cover with bordered foam. Change Sunday. Turn patient every 2 hours. Utilize the appropriate surface for offloading. Thank you for the consultation any questions with contact the wound care center DNP note has been reviewed and discussed with Dr. Manley and the impression and plan of care has been directed as dictated. 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, chronic barragan History of Any Multi-Drug Resistant Organisms: ESBL Year Discovered:: 12/15/22 MDRO Source:: Urine Past Surgical History: Back Surgery, Orthopedic Surgery Additional Past Surgical History / Comment(s): 3 back surgeries; Jaw surgery Past Anesthesia/Blood Transfusion Reactions: No Reported Reaction Additional Past Anesthesia/Blood Transfusion Reaction / Comm: No reactions that patient is aware of; never recieved blood Smoking Status: Never smoker Medications and Allergies Home Medications Medication Instructions Recorded Confirmed Type Alendronate Sodium [Fosamax] 70 mg PO MO@59908/22/13 08/16/24 History Fexofenadine HCl [Soniya Allergy] 180 mg PO DAILY@89908/22/13 08/16/24 History Aspirin EC [Ecotrin Low Dose] 81 mg PO DAILY@59910/22/21 08/16/24 History Atorvastatin Calcium [Lipitor] 40 mg PO HS@209910/22/21 08/16/24 History Lactobacillus Acidophilus 1 cap PO BID@899,209910/22/21 08/16/24 History [Acidophilus Probiotic] Magnesium Oxide 400 mg PO HS@209910/22/21 08/16/24 History Multivitamins, Thera [Multivitamin 1 tab PO DAILY@89910/22/21 08/16/24 History (formulary)] Sennosides [Senokot] 17.2 mg PO Q12HR@09,209910/22/21 08/16/24 History allopurinoL [Zyloprim] 100 mg PO DAILY@89910/22/21 08/16/24 History polyethylene glycoL 3350 [Miralax] 17 gm PO DAILY@89908/10/22 08/16/24 History Budesonide 0.5 mg INHALATION RT-BID@09,209904/21/24 08/16/24 History Carbamide Peroxide [Debrox Otic] 2 drops BOTH EARS HS@209904/21/24 08/16/24 History Collagenase [Santyl Ointment] 1 applic TOPICAL HS 04/21/24 08/16/24 History Ezetimibe [Zetia] 10 mg PO HS@209904/21/24 08/16/24 History Ferrous Sulfate [Feosol] 325 mg PO Q12HR@0900,209904/21/24 08/16/24 History Fluticasone Propionate 2 spr INHALATION DAILY@89904/21/24 08/16/24 History [Fluticasone Propionate Pyrites 50 mcg Nasal Pyrites] Ipratropium-Albuterol Nebulize 3 ml INHALATION RT-Q6H 04/21/24 08/16/24 History [Duoneb 0.5 mg-3 mg/3 ml Soln] carvediloL [Coreg] 3.125 mg PO BID@0900,209904/21/24 08/16/24 History Acetaminophen Tab [Tylenol] 650 mg PO Q4H PRN 08/16/24 08/16/24 History Ascorbic Acid [Vitamin C] 500 mg PO Q12HR@0900,209908/16/24 08/16/24 History Biotene Dry Mouth/Throat Liquid 15 ml PO Q8HR@0600,1400,2200 08/16/24 08/16/24 History Cholecalciferol [Vitamin D3 (10 10 mcg PO Q12HR@0900,209908/16/24 08/16/24 History Mcg = 400 Iu)] Collagenase [Santyl Ointment] 1 applic TOPICAL DAILY PRN 08/16/24 08/16/24 History Furosemide [Lasix] 20 mg PO BID@0600,1700 08/16/24 08/16/24 History Gabapentin [Neurontin] 100 mg PO Q12HR@0900,209908/16/24 08/16/24 History Levofloxacin [Levaquin] 750 mg PO DIRECTED@119908/16/24 08/16/24 History Melatonin 3 mg PO HS@209908/16/24 08/16/24 History Omeprazole 20 mg PO DAILY@0900 08/16/24 08/16/24 History Oyster Shell Calcium 500mg 500 mg PO Q12HR@0900,209908/16/24 08/16/24 History Potassium Chloride ER [K-Dur 20] 20 meq PO HS@209908/16/24 08/16/24 History Z-Guard 1 applic TOPICAL DAILY PRN 08/16/24 08/16/24 History Z-Guard 1 applic TOPICAL Q12H 08/16/24 08/16/24 History guaiFENesin [Mucinex] 1,200 mg PO Q12HR@0900,209908/16/24 08/16/24 History metOLazone [Zaroxolyn] 5 mg PO DAILY@1200 08/16/24 08/16/24 History Allergies Allergy/AdvReac Type Severity Reaction Status Date / Time No Known Allergies Allergy Verified 08/16/24 09:32 Physical Exam Vitals: Vital Signs Temp Pulse Pulse Resp BP Pulse Ox FiO2 08/20/24 07:00 77 24 130/89 92 L 60 08/20/24 06:00 71 27 H 103/65 91 L 60 08/20/24 05:00 69 20 104/66 91 L 60 08/20/24 04:37 60 08/20/24 04:00 97.6 F 63 81 15 112/68 91 L 60 08/20/24 03:00 76 20 114/70 91 L 60 08/20/24 02:00 71 16 113/71 91 L 60 08/20/24 01:00 97.5 F L 78 21 122/80 92 L 60 08/20/24 00:35 81 24 08/20/24 00:12 60 08/20/24 00:00 88 17 113/77 90 L 60 08/19/24 23:00 92 19 130/85 93 L 60 08/19/24 22:00 85 19 123/80 93 L 60 08/19/24 21:11 79 20 08/19/24 21:00 98.4 F 89 17 120/81 93 L 60 08/19/24 20:48 60 08/19/24 20:00 73 81 11 L 107/93 92 L 60 08/19/24 19:00 89 17 108/87 91 L 08/19/24 18:00 73 19 100/71 97 08/19/24 17:00 70 20 105/73 97 08/19/24 16:00 97.7 F 85 24 104/69 97 60 08/19/24 15:32 60 08/19/24 15:00 86 30 H 115/65 92 L 08/19/24 14:00 80 15 88/62 97 08/19/24 13:00 96 30 H 96/60 98 08/19/24 12:00 97.5 F L 81 14 125/98 98 08/19/24 11:43 82 08/19/24 11:42 60 08/19/24 11:00 86 7 L 82/30 93 L 08/19/24 10:00 85 5 L 130/112 92 L Intake and Output 08/19/24 08/20/24 08/20/24 22:59 06:59 14:59 Intake Total 210 280 60 Output Total 455 1015 30 Balance -338 -811 30 Intake: IV 60 180 10 0.9 60 180 10 Oral 150 100 50 Output: Urine 455 1015 30 Other: Voiding Method Indwelling Catheter Indwelling Catheter # Voids 1 1 Weight 89.6 kg Results CBC & Chem 7: 08/20/24 05:59 08/20/24 05:59 Labs: Abnormal Lab Results - Last 24 Hours (Table) 08/20/24 08/20/24 Range/Units 05:59 05:59 WBC 12.10 H (4.50-10.00) 10*3/uL RBC 3.73 L (4.10-5.20) 10*6/uL Hgb 10.2 L (12.0-15.0) g/dL Hct 34.6 L (37.2-46.3) % MCHC 29.5 L (32.0-37.0) g/dL MPV 9.4 L (9.5-12.2) fL Sodium 136 L (137-145) mmol/L Chloride 88 L (98-107) mmol/L Carbon Dioxide 40 H (22-30) mmol/L BUN 31 H (7-17) mg/dL Glucose 171 H (74-99) mg/dL Magnesium 2.6 H (1.6-2.3) mg/dL Microbiology - Last 24 Hours (Table) 08/16/24 05:00 Blood Culture - Preliminary Blood Assessment and Plan (1) Pressure ulcer of left buttock, stage 2 Current Visit: Yes Status: Acute Code(s): L89.322 - PRESSURE ULCER OF LEFT BUTTOCK, STAGE 2 SNOMED Code(s): 20579035853764 (2) Pressure ulcer of right buttock, stage 2 Current Visit: Yes Status: Acute Code(s): L89.312 - PRESSURE ULCER OF RIGHT BUTTOCK, STAGE 2 SNOMED Code(s): 40291020982195 (3) Pressure ulcer of coccygeal region, stage 2 Current Visit: Yes Status: Acute Code(s): L89.152 - PRESSURE ULCER OF SACRAL REGION, STAGE 2 SNOMED Code(s): 59116003123999129
--- NOTE | 2024-08-20 10:44 | CA ---
Transthoracic Echo Report Name: Maria Elena Jett Age: 84 Gender: F : 1940 Exam Date: 08/20/2024 07:41 Exam Location: [facility] Ht (in): 61 Wt (lb): 189 Ordering Physician: Unique Ronquillo MD Attending/Referring Phys: Solutions Manager Kary Carcamo RDCS Procedure CPT: Indications: cardiomyopathy Cardiac Hx: Technical Quality: Fair Contrast 1: Total Dose (mL): Contrast 2: Total Dose (mL): MEASUREMENTS (Male / Female) Normal Values 2D ECHO LV Diastolic Diameter PLAX 3.8 cm 4.2 - 5.9 / 3.9 - 5.3 cm LV Systolic Diameter PLAX 2.7 cm IVS Diastolic Thickness 1.0 cm 0.6 - 1.0 / 0.6 - 0.9 cm LVPW Diastolic Thickness 1.1 cm 0.6 - 1.0 / 0.6 - 0.9 cm LV Relative Wall Thickness 0.6 RV Internal Dim ED PLAX 1.7 cm LVOT Diameter 1.9 cm LA Systolic Diameter LX 3.8 cm 3.0 - 4.0 / 2.7 - 3.8 cm LV Diastolic Volume MOD BP 46.8 cm??? 67 - 155 / 56 - 104 cm??? LV Systolic Volume MOD BP 24.1 cm??? - 58 / 19 - 49 cm??? LV Ejection Fraction MOD BP 48.5 % >= 55 % LV Cardiac Index MOD BP 1017.9 cm???/min???m??? LV Diastolic Volume MOD 4C 44.3 cm??? LV Systolic Volume MOD 4C 27.5 cm??? LV Ejection Fraction MOD 4C 37.9 % LV Cardiac Index MOD 4C 752.8 cm???/min???m??? LV Diastolic Length 4C 7.1 cm LV Systolic Length 4C 5.9 cm LV Diastolic Volume MOD 2C 46.8 cm??? LV Systolic Volume MOD 2C 22.5 cm??? LV Ejection Fraction MOD 2C 52.0 % LV Cardiac Index MOD 2C 1091.9 cm???/min???m??? LV Diastolic Length 2C 6.5 cm LV Systolic Length 2C 5.9 cm LA Volume 38.8 cm??? 18 - 58 / 22 - 52 cm??? LA Volume Index 19.8 cm???/m??? 16 - 28 cm???/m??? M-MODE Aortic Root Diameter MM 3.2 cm LA Systolic Diameter MM 1.8 cm LA Ao Ratio MM 0.6 AV Cusp Separation MM 1.2 cm DOPPLER AV Peak Velocity 135.1 cm/s AV Peak Gradient 7.3 mmHg AV Mean Velocity 91.9 cm/s AV Mean Gradient 3.7 mmHg AV Velocity Time Integral 31.4 cm LVOT Peak Velocity 99.2 cm/s LVOT Peak Gradient 3.9 mmHg LVOT Velocity Time Integral 24.3 cm LVOT Stroke Volume 67.9 cm??? LVOT Stroke Volume Index 36.8 ml/m??? LVOT Cardiac Index 3046.1 cm???/min???m??? AV Area Cont Eq vti 2.2 cm??? AV Area Cont Eq pk 2.1 cm??? MV Area PHT 3.0 cm??? Mitral E Point Velocity 98.1 cm/s Mitral A Point Velocity 0.6 cm/s Mitral E to A Ratio 161.6 MV Deceleration Time 250.7 ms FINDINGS Left Ventricle Left ventricular ejection fraction is estimated at 45-50 %. Mildly increased septal wall thickness. Mildly increased posterior wall thickness. Mildly decreased left ventricular ejection fraction. Left ventricular cavity size normal. Right Ventricle Normal right ventricular size and function. Unable to estimate the right ventricular systolic pressure. Right Atrium Normal right atrial size. Left Atrium Normal left atrial size. Mitral Valve Mitral valve thickened. Trace to mild mitral regurgitation. No mitral stenosis. Mitral annular calcification. Aortic Valve Trileaflet aortic valve. Diffuse thickening (sclerosis) of the aortic valve cusps without reduced excursion. No aortic stenosis. No aortic regurgitation. Tricuspid Valve Structurally normal tricuspid valve. Trace tricuspid regurgitation. Pulmonic Valve Structurally normal pulmonic valve. Mild pulmonic regurgitation. No pulmonic stenosis. Pericardium No pericardial effusion. Left pleural effusion. Echo free space anterior to the right ventricle likely represents a fat pad. Aorta Normal size aortic root and proximal ascending aorta. CONCLUSIONS Normal LV size fairly well-preserved systolic function ejection fraction in the 50% range aortic valve sclerosis calcification no significant restriction. Mild mitral and tricuspid regurgitation. Probable fat pad but no significant pericardial effusion. Right-sided pressures are not well quantified Previewed by: Dr. Romero Trotter MD (Electronically Signed) Final Date: 20 August 2024 10:43
--- NOTE | 2024-08-20 10:58 | US ---
EXAMINATION TYPE: US chest DATE OF EXAM: 08/20/2024 COMPARISON: Radiograph same day CLINICAL INDICATION: Female, 84 years old with history of Possible BL effusions; radiographic abnorma lity, shortness of breath TECHNIQUE: Grayscale imaging of the chest. Targeted ultrasound of the posterior lower bilateral susan thoraces FINDINGS: EXAM MEASUREMENTS: Right Pleural Effusion pocket size: No fluid visualized to be marked Left Pleural Effusion pocket size: no fluid visualized to be marked. There seems to be some consolid ation on the left. Pulmonologists are able to review the images in the patient?s EMR. IMPRESSIONS: No appreciable pleural effusion. There seems to be some consolidation or atelectasis on the left. [facility], , 08/20/2024 10:55 AM
[2024-08-20] MEDS: POTASSIUM CHLORIDE 10 MEQ in WATER FOR INJECTION 1 100ML.BAG IVPB SCH (11:00)
[2024-08-20] MEDS: ZINC OXIDE PASTE (Z-GUARD) 1 APPLIC TOPICAL SCH (12:24)
--- NOTE | 2024-08-20 13:05 | P.PN ---
Subjective Progress Note Date: 08/20/24 The patient is an 84-year-old female who presented to the emergency room with mental status changes and shortness of breath. She was found to have bilateral pneumonia as well as CHF exacerbation. Mental status improved with BiPAP. Patient has been diuresed over the last 48 hours, however she became hypotensive and therefore was transferred to the ICU. Echocardiogram reviewed. Ejection fraction 50% with no significant valvular abnormalities. Patient interviewed and examined resting comfortably on BiPAP. Arouses to physical stimuli. No improvement in mental status over the last 24 hours GENERAL: Well-appearing, well-nourished and in no acute distress. NECK: Supple without JVD or thyromegaly. LUNGS: Breath sounds coarse to auscultation bilaterally. Respiration equal and unlabored. HEART: Irregular rate and rhythm without murmurs, rubs or gallops. S1 and S2 heard. EXTREMITIES: Normal range of motion, no edema. No clubbing or cyanosis. Peripheral pulses intact and strong. TELEMETRY: Sinus rhythm overnight LABS: WBC 12.1, hemoglobin 10.2, hematocrit 34.6, platelet 374, sodium 136, potassium 3.6, BUN 31, creatinine 1.02, magnesium 2.6 IMPRESSION: Mental status changes Metabolic encephalopathy Acute hypoxic respiratory failure, secondary to pneumonia and CHF Sepsis, secondary to right lower lobe complicated pneumonia Persistent atrial fibrillation, new onset Acute CHF, diastolic Anemia PLAN: Continue supportive treatment Aggressive pulmonary hygiene as tolerated Transition to oral anticoagulation from Lovenox No further recommendations from the cardiac standpoint I am dictating on behalf of Dr Nasim Lance's history/physical and assessment/plan. Objective - Vital Signs Vital signs: Vital Signs Temp 97.7 F 08/20/24 12:00 Pulse 81 08/20/24 12:00 Resp 16 08/20/24 12:00 BP 114/79 08/20/24 12:00 Pulse Ox 97 08/20/24 12:00 FiO2 60 08/20/24 08:00 Intake & Output 08/19/24 08/20/24 08/20/24 18:59 06:59 18:59 Intake Total 50 470 660 Output Total 325 1305 295 Balance -275 -835 365 Weight 89.6 kg Intake: IV 50 220 60 0.9 50 220 60 Intake, IV Titration 400 Amount Potassium Chloride 10 meq 400 In Water For Injection 1 100ml.bag @ 100 mls/hr IVPB Q1H [facility] Rx#: [id number] Oral 250 200 Output: Urine 325 1305 295 Other: Voiding Method Indwelling Catheter Indwelling Catheter Indwelling Catheter # Voids 1 1 - Labs CBC & Chem 7: 08/20/24 05:59 08/20/24 05:59 Labs: Abnormal Lab Results - Last 24 Hours (Table) 08/20/24 08/20/24 Range/Units 05:59 05:59 WBC 12.10 H (4.50-10.00) 10*3/uL RBC 3.73 L (4.10-5.20) 10*6/uL Hgb 10.2 L (12.0-15.0) g/dL Hct 34.6 L (37.2-46.3) % MCHC 29.5 L (32.0-37.0) g/dL MPV 9.4 L (9.5-12.2) fL Sodium 136 L (137-145) mmol/L Chloride 88 L (98-107) mmol/L Carbon Dioxide 40 H (22-30) mmol/L BUN 31 H (7-17) mg/dL Glucose 171 H (74-99) mg/dL Magnesium 2.6 H (1.6-2.3) mg/dL Microbiology - Last 24 Hours (Table) 08/16/24 05:00 Blood Culture - Preliminary Blood
--- NOTE | 2024-08-20 17:06 | P.PN ---
Subjective Progress Note Date: 08/20/24 On 08/18/2024, the patient is being seen for a follow-up. This is a 84-year-old female patient who is currently being seen for CHF and the patient is being treated accordingly. The chest x-ray showed also small bilateral pleural effusions along with cardiomegaly. The patient has extensive instrumentation and spinal fixation involving the thoracic spine. The patient is currently on Coreg 3.125 mg twice a day, Lasix 40 mg IV every 12 hours and Aldactone 25 mg p.o. daily. The patient is also on Zaroxolyn 5 mg p.o. daily. The patient is maintained on oxygen and she is currently on 7 L with a pulse ox of 93%. Blood work from today shows a white cell count of 14.7 with a hemoglobin 9.6 and a platelet count of 413. Sodium is at 133, potassium is at 3.4, BUN is at 26 with a creatinine of 0.9. Serum bicarb is at 38. The patient is also on empiric antibiotic coverage and the patient remains on IV Rocephin. Rest of the medications remain essentially unchanged. Noted, the patient was initially on a BiPAP and the patient is currently off the BiPAP on 7 L of oxygen by nasal cannula. On 08/19/2024, the patient became very intensive care unit. The patient got transferred to the ICU overnight as the patient was found to be more hypoxic and more short of breath and she also had a drop in her blood pressure. She was given a bolus of 500 cc and the patient's blood pressure has normalized. She was on 60s of oxygen by nasal cannula and the patient was transitioned to BiPAP at a pressure of 18 over 8 cm of water with an FiO2 of 60%. For now, the patient is tolerating the BiPAP reasonably well. Her minute ventilation is around 6.8 L/min and the generated tidal volume is 270 cc. The blood gas showed a pH of 7.44 with a PCO2 of 65 and PO2 of 78 and a fluid balance is -929 cc over the past 24 hours. The patient remains on DuoNebtreatment [id number]. The patient remains on IV Solu-Medrol. The diuretics will be placed on hold as the patient has developed alkalosis. The sodium levels at 135, potassium is 3.5, bicarb is at 39 with a chloride of 88. BUN is 30 with a creatinine of 0.7. WBC count 16.9 with a hemoglobin 10.2 and a platelet count of 370. Chest x-ray from this morning shows small bilateral pleural effusion and cardiomegaly. Clinically, the patient is tolerating the BiPAP well. The patient is arousable. No focal neurological deficits. Echocardiogram was ordered and this has not been completed yet. On today's evaluation of 08/20/2024, the patient was taken off the BiPAP. Note that overnight, the patient was kept on a BiPAP pressure of 18 over 8 cm of water and FiO2 of 60%. Currently she is on 6 L of oxygen by nasal cannula. More arousable and communicating. Her breathing is remains quite shallow and the patient was not offered an incentive spirometer. IV fluids are currently at KVO. Fluid balance is -1.1 L. The patient was also noted to be in atrial fibrillation. Meanwhile, the chest x-ray from today is showing left lower lobe atelectasis/collapse and some right basilar airspace disease with possible development of pleural effusions. Based on that, ultrasound of the chest was ordered to evaluate for any pleural effusions. Meanwhile, the patient remains on bronchodilators with DuoNeb nebulized treatments [id number], IV Solu- Medrol 60 mg every 6 hours and the patient is also on Lasix 40 mg IV every 12 hours. Remains on anticoagulation with Eliquis 2.5 mg p.o. twice daily. The white cell count is at 12.1 with a heme of 10.2 and a platelet count of 374. BUN 31 with a creatinine of 1.02. Serum bicarb is at 40 and sodium levels at 136 and a potassium level is at 3.6.The echocardiogram was also completed and the patient was found to have a preserved LV function with a normal ejection fraction of 50%. Mild mitral and tricuspid regurgitation. Right-sided pressures were not adequately measured. Objective - Vital Signs Vital signs: Vital Signs Temp 97.6 F 08/20/24 04:00 Pulse 77 08/20/24 07:00 Resp 24 08/20/24 07:00 BP 130/89 08/20/24 07:00 Pulse Ox 92 L 08/20/24 07:00 FiO2 60 08/20/24 07:00 Intake & Output 08/19/24 08/20/24 08/20/24 18:59 06:59 18:59 Intake Total 50 470 60 Output Total 325 1305 30 Balance -275 -835 30 Weight 89.6 kg Intake: IV 50 220 10 0.9 50 220 10 Oral 250 50 Output: Urine 325 1305 30 Other: Voiding Method Indwelling Catheter Indwelling Catheter # Voids 1 1 - Exam No significant respiratory distress at rest, currently off BiPAP and the patient is currently in 6 L of oxygen by nasal cannula HEENT examination is grossly unremarkable. Mucous membranes are moist. No oral lesions. Neck supple. Full range of motion. No adenopathy thyromegaly or neck vein distention. Cardiovascular examination reveals regular rhythm rate. S1-S2 normal. No S3 or S4. No discernible murmur noted. Lungs reveal scattered rhonchi. No wheezes. Basilar crackles are noted. Breath sounds are equal. The breath sounds are still marked diminished bilaterally. Abdomen soft bowel sounds are heard. No masses or tenderness. Extremities are intact. No significant lower extremity edema on today's e valuation and the pitting edema is improved. Skin is without rash or lesion. Neurologic examination is brief but nonfocal. - Labs CBC & Chem 7: 08/20/24 05:59 08/20/24 05:59 Labs: Abnormal Lab Results - Last 24 Hours (Table) 08/20/24 08/20/24 Range/Units 05:59 05:59 WBC 12.10 H (4.50-10.00) 10*3/uL RBC 3.73 L (4.10-5.20) 10*6/uL Hgb 10.2 L (12.0-15.0) g/dL Hct 34.6 L (37.2-46.3) % MCHC 29.5 L (32.0-37.0) g/dL MPV 9.4 L (9.5-12.2) fL Sodium 136 L (137-145) mmol/L Chloride 88 L (98-107) mmol/L Carbon Dioxide 40 H (22-30) mmol/L BUN 31 H (7-17) mg/dL Glucose 171 H (74-99) mg/dL Magnesium 2.6 H (1.6-2.3) mg/dL Microbiology - Last 24 Hours (Table) 08/16/24 05:00 Blood Culture - Preliminary Blood Assessment and Plan Plan: Acute hypoxic respiratory failure most likely related to COPD, chronic restrictive lung disease related to obesity and a component of CHF with bilateral pleural effusion. Pneumonia is possible although felt to be less likely at this stage. Echocardiogram was completed and the patient has a preserved LV function. Chest x-ray continues to show atelectatic changes lung bases. There is an obvious left lower lobe collapse and there is also atelectatic changes right lung base. Altered mental status secondary to above, improved while being on the BiPAP. The patient is currently off BiPAP therapy and the patient has been transitioned to 6 L of O2 nasal cannula Preserved LV function with an ejection fraction of 60 to 65% Hyponatremia, improved and the sodium level is normal Mild leukocytosis Chronic anemia History of CVA with left-sided hemiplegia. Extensive thoracic spine surgery with instrumentation and spinal fusion. History of gout. Hyperlipidemia. Lifelong non-smoker. [facility] resident. Plan: Patient currently off BiPAP. Recommend using the BiPAP overnight. Obtain follow-up blood gas in a.m. Obtain a follow-up chest x-ray in a.m. Continue Lasix 40 mg IV every 12 hours DuoNeb neb regiment [id number] Continue empiric antibiotic coverage with IV Rocephin IV Solu-Medrol 60 mg every 6 hours Echocardiogram was noted and the patient has a preserved LV function Monitor electrolytes Continue Coreg 3.125 mg twice a day Monitor respiratory status Monitor mental status She is a DNR/DNI CODE STATUS Rest of the medication were reviewed. The patient is on aspirin. The patient on Lipitor. Will continue to follow. This is a critical care evaluation that was done in 35 minutes. Time with Patient: Greater than 30
[2024-08-20] MEDS: IPRATROPIUM-ALBUTEROL 3 ML NEB INHALATION SCH (21:24)
[2024-08-20] MEDS: APIXABAN 2.5 MG TABLET PO SCH (21:29)
--- NOTE | 2024-08-21 00:18 | P.PN ---
Subjective 84-year-old female patient who resides at [facility] on the [place] with previous CVA and left-sided hemiplegia, congestive heart failure, hyperlipidemia, hypertension, lifelong non-smoker who was brought into the emergency room early this morning with shortness of breath and cough. -- Chest x-ray reveals bilateral lower lobe consolidations. -Blood work completed in the ED reveals White count 12.5. Hemoglobin 9.5. Platelets 391. Sodium 127. Potassium 3.6. Bicarb 40. BUN 14. Creatinine 0.38. Troponin 0.042. 0.038. proBNP 5540. - While in the ED patient desaturated and had to be placed on BiPAP; pulmonary consult was placed Patient seen and evaluated sitting up in bed; she is on BiPAP, with settings of 16/8, 60%. She continues on azithromycin and Rocephin. He is much more awake today than she was yesterday. White count was 18.8, hemoglobin 10.3, hematocrit 32.7, platelet count 3 96,000. Sodium 130, potassium 2.4, chlorides 80, CO2 40, BUN 21, creatinine 0.63. Calcium is 9.5. --Pulmonary service on board and recommending to continue with current antibiotic 08/18 Patient mentation improved She still short of breath especially with talking She is not the BiPAP machine overnight Currently she is on oxygen saturating 96% and on 8 L/min At home she said she is just 2 to 4 units Echocardiogram is pending Patient is currently being treated for CHF and pneumonia on ceftriaxone and Zithromax and IV Lasix however her procalcitonin less than 0.20 therefore patient remains on IV Lasix 40 mg twice daily and metolazone 5 mg once daily but also she is on ceftriaxone Zithromax pulmonary pulmonary consult team on the case 08/19 Patient with acute CHF on IV Lasix 4 mg twice daily 100 requiring BiPAP at night. 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 Patient made about 6542-2513 mL urine output yesterday. Patient was transferred to the ICU anticipating she might need pressors. Resumed 2 boluses of normal saline to 50 mL, blood pressure improved and currently 100/69 and higher. Chest x-ray from today showing cardiomegaly and bilateral basal infiltrates, correlate for CHF. I reviewed chest x-ray by myself and agree. Remains on IV Lasix milligram twice daily metolazone 5 mg once daily and ceftriaxone 08/20 Patient remains in the ICU requiring BiPAP overnight and this morning Patient is poor historian because of that and she is sleepy Her breathing is slightly better. She developed hypotensive blood pressure and sent to the ICU. Blood pressure has been stable after she received 2 boluses of 250 mL. Currently kept on Lasix 40 mg twice daily while metolazone was discontinued because of this hypotension Patient also remains on ceftriaxone and Zithromax Echocardiogram is pending Objective - Vital Signs Vital signs: Vital Signs Temp 97.6 F 08/20/24 04:00 Pulse 77 08/20/24 07:00 Resp 24 08/20/24 07:00 BP 130/89 08/20/24 07:00 Pulse Ox 92 L 08/20/24 07:00 FiO2 60 08/20/24 07:00 Intake & Output 08/19/24 08/20/24 08/20/24 18:59 06:59 18:59 Intake Total 50 470 60 Output Total 325 1305 30 Balance -275 -835 30 Weight 89.6 kg Intake: IV 50 220 10 0.9 50 220 10 Oral 250 50 Output: Urine 325 1305 30 Other: Voiding Method Indwelling Catheter Indwelling Catheter # Voids 1 1 - Exam GENERAL: The patient is alert and oriented x3, not in any acute distress. Well developed, well nourished. HEENT: Pupils are round and equally reacting to light. EOMI. No scleral icterus. No conjunctival pallor. Normocephalic, atraumatic. No pharyngeal erythema. No thyromegaly. CARDIOVASCULAR: S1 and S2 present. No murmurs, rubs, or gallops. PULMONARY: Chest is clear to auscultation, no wheezing , bilateral crackles. ABDOMEN: Soft, nontender, nondistended, normoactive bowel sounds. No palpable organomegaly. MUSCULOSKELETAL: No joint swelling or deformity. EXTREMITIES: No cyanosis, clubbing, or pedal edema. NEUROLOGICAL: Gross neurological examination did not reveal any focal deficits. SKIN: No rashes. no petechiae. - Labs CBC & Chem 7: 08/20/24 05:59 06/25/25 05:59 Labs: Abnormal Lab Results - Last 24 Hours (Table) 08/20/24 08/20/24 Range/Units 05:59 05:59 WBC 12.10 H (4.50-10.00) 10*3/uL RBC 3.73 L (4.10-5.20) 10*6/uL Hgb 10.2 L (12.0-15.0) g/dL Hct 34.6 L (37.2-46.3) % MCHC 29.5 L (32.0-37.0) g/dL MPV 9.4 L (9.5-12.2) fL Sodium 136 L (137-145) mmol/L Chloride 88 L (98-107) mmol/L Carbon Dioxide 40 H (22-30) mmol/L BUN 31 H (7-17) mg/dL Glucose 171 H (74-99) mg/dL Magnesium 2.6 H (1.6-2.3) mg/dL Microbiology - Last 24 Hours (Table) 08/16/24 05:00 Blood Culture - Preliminary Blood Assessment and Plan Assessment: 1. Acute hypoxic respiratory failure; likely multifactorial; related to CHF ex acerbation and community-acquired pneumonia - Patient is currently on BiPAP at night time; plan to titrate or wean FiO2 keeping O2 saturation greater than 92% 2. Acute exacerbation CHF most likely diagnosis - Patient has been placed on IV diuretic; monitor strict FABBY's, daily weights, low-salt and fluid restricted diet; continue with home dose of metolazone 5 mg daily - Recommend 2D echo - Consult cardiology 3. Community-acquired pneumonia, possible - Patient has been placed on IV antibiotics; bronchodilator nebulizer treatments 4 times daily and as needed; will monitor CBC, CRP and procalcitonin - Consult pulmonary; appreciate recommendations 4. Altered mental status; likely toxic metabolic encephalopathy related to above 5. Hyponatremia; sodium level at 127; we will monitor electrolytes closely 6. Hyperlipidemia; Lipitor 40 mg p.o. nightly; Zetia 10 mg daily 7. History of gout; allopurinol 100 mg daily 8. Hypertension; Coreg 3.125 mg daily DVT prophylaxis; SCDs CODE STATUS; full code
[2024-08-21 03:53] LABS: Basophils # (A) 0.08 10*3/uL (0.00-0.10); Basophils % (A) 0.5 %; Eosinophils # (A) 0.00 10*3/uL (0.04-0.35); Eosinophils % (A) 0.0 %; HCT 35.7 % (37.2-46.3); HGB 10.9 g/dL (12.0-15.0); Lymphocytes # (A) 0.66 10*3/uL (0.90-5.00); Lymphocytes % (A) 4.3 %; MCH 28.0 pg (27.0-32.0); MCHC 30.5 g/dL (32.0-37.0); MCV 91.8 fL (80.0-97.0); Monocytes # (A) 0.38 10*3/uL (0.20-1.00); Monocytes % (A) 2.5 %; Neutrophils # (A) 13.54 10*3/uL (1.80-7.70); Neutrophils % (A) 88.1 %; Platelet Count 424 10*3/uL (140-440); RBC 3.89 10*6/uL (4.10-5.20); RDW 14.7 % (11.5-14.5); WBC 15.36 10*3/uL (4.50-10.00)
[2024-08-21 04:07] LABS: African American GFR (CKD) 58 (>60 ml/min/1.73 sqM); Blood Urea Nitrogen 37 mg/dL (7-17); Calcium 10.0 mg/dL (8.4-10.2); Chloride 87 mmol/L (98-107); Glucose 152 mg/dL (74-99); Magnesium 2.7 mg/dL (1.6-2.3); Non-African American GFR(CKD) 50 (>60 ml/min/1.73 sqM); Potassium 4.1 mmol/L (3.5-5.1); Sodium 135 mmol/L (137-145)
[2024-08-21 04:14] LABS: Anion Gap 7 mmol/L
[2024-08-21 04:22] LABS: Carbon Dioxide 41 mmol/L (22-30)
--- NOTE | 2024-08-21 07:49 | XR ---
EXAMINATION TYPE: XR chest 1V portable DATE OF EXAM: 08/21/2024 5:54 AM COMPARISON: 08/20/2024 CLINICAL INDICATION: Female, 84 years old with history of follow up CHF exacerbation, , FINDINGS: Posterior thoracic fusion hardware at multiple levels of vertebroplasty. Heart appears mildly enlarge d. Upper and mid lungs are clear. Small right pleural effusion may have developed in the interval. Ad jacent right basilar opacity. The previous obliquely oriented opacity in the retrocardiac region is l ess defined now. Residual medial left basilar opacity remains. IMPRESSION: 1. Persistent medial left basilar opacity though the obliquely oriented margin is less defined and ma y reflect partial reexpansion of the left lower lobe. 2. There may be interval development of a small right pleural effusion with adjacent atelectasis and/ or consolidation. [facility], , 08/21/2024 7:47 AM
[2024-08-21 09:56] LABS: ABG PCO2 57 mmHg (35-45); ABG PH 7.48 (7.35-7.45); ABG PO2 68 mmHg (83-108); ABG TCO2 44 mmol/L (19-24); Allen Test Performed? Yes
[2024-08-21 10:01] LABS: ABG HCO3 42 mmol/L (21-25)
--- NOTE | 2024-08-21 10:45 | P.PN ---
Subjective 84-year-old female patient who resides at [facility] on the [place] with previous CVA and left-sided hemiplegia, congestive heart failure, hyperlipidemia, hypertension, lifelong non-smoker who was brought into the emergency room early this morning with shortness of breath and cough. -- Chest x-ray reveals bilateral lower lobe consolidations. -Blood work completed in the ED reveals White count 12.5. Hemoglobin 9.5. Platelets 391. Sodium 127. Potassium 3.6. Bicarb 40. BUN 14. Creatinine 0.38. Troponin 0.042. 0.038. proBNP 5540. - While in the ED patient desaturated and had to be placed on BiPAP; pulmonary consult was placed Patient seen and evaluated sitting up in bed; she is on BiPAP, with settings of 16/8, 60%. She continues on azithromycin and Rocephin. He is much more awake today than she was yesterday. White count was 18.8, hemoglobin 10.3, hematocrit 32.7, platelet count 3 96,000. Sodium 130, potassium 2.4, chlorides 80, CO2 40, BUN 21, creatinine 0.63. Calcium is 9.5. --Pulmonary service on board and recommending to continue with current antibiotic 08/18 Patient mentation improved She still short of breath especially with talking She is not the BiPAP machine overnight Currently she is on oxygen saturating 96% and on 8 L/min At home she said she is just 2 to 4 units Echocardiogram is pending Patient is currently being treated for CHF and pneumonia on ceftriaxone and Zithromax and IV Lasix however her procalcitonin less than 0.20 therefore patient remains on IV Lasix 40 mg twice daily and metolazone 5 mg once daily but also she is on ceftriaxone Zithromax pulmonary pulmonary consult team on the case 08/19 Patient with acute CHF on IV Lasix 4 mg twice daily 100 requiring BiPAP at night. 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 Patient made about 0062-4930 mL urine output yesterday. Patient was transferred to the ICU anticipating she might need pressors. Resumed 2 boluses of normal saline to 50 mL, blood pressure improved and currently 100/69 and higher. Chest x-ray from today showing cardiomegaly and bilateral basal infiltrates, correlate for CHF. I reviewed chest x-ray by myself and agree. Remains on IV Lasix milligram twice daily metolazone 5 mg once daily and ceftriaxone 08/20 Patient remains in the ICU requiring BiPAP overnight and this morning Patient is poor historian because of that and she is sleepy Her breathing is slightly better. She developed hypotensive blood pressure and sent to the ICU. Blood pressure has been stable after she received 2 boluses of 250 mL. Currently kept on Lasix 40 mg twice daily while metolazone was discontinued because of this hypotension Patient also remains on ceftriaxone and Zithromax Echocardiogram is pending 08/21 Patient remains on BiPAP this morning, she is not really getting improved as she feels no chest pain Vitals stable and afebrile WBC 15.3 hemoglobin 10.9 potassium 4.1. Chest x-ray showing persistent left basilar opacity and a new right pleural effusion with adjacent atelectasis versus consolidation from today chest x-ray. Patient remains on ceftriaxone and Zithromax. IV fluid was discontinued and placed on IV Lasix Metolazone was stopped. Patient started on IV Solu-Medrol. Also patient has A-fib new onset by cardiology started on Eliquis 2.5 mg Active Medications Generic Name Dose Route Start Last Admin Trade Name Freq PRN Reason Stop Dose Admin Acetaminophen 650 mg 08/16/24 10:51 08/17/24 21:55 Acetaminophen Tab 325 Mg Tab PO 650 mg Q4H PRN Administration Pain Acetazolamide Sodium 500 mg 08/21/24 10:00 Acetazolamide Sodium 500 Mg Vial IV Q12HR [facility] Albuterol Sulfate 2.5 mg 08/16/24 04:51 08/19/24 11:43 Albuterol Nebulized 2.5 Mg/3 Ml INHALATION 2.5 mg RT-Q4H PRN Administration Shortness Of Breath Or Wheezing Albuterol/Ipratropium 3 ml 08/20/24 20:00 08/21/24 08:21 Ipratropium-Albuterol 3 Ml Neb INHALATION 3 ml RT-QID SUKHDEEP Administration Allopurinol 100 mg 08/17/24 09:00 08/21/24 09:02 Allopurinol 100 Mg Tab PO 100 mg DAILY@0900 SUKHDEEP Administration Apixaban 2.5 mg 08/20/24 21:08/21/24 09:01 Apixaban 2.5 Mg Tablet PO 2.5 mg BID SUKHDEEP Administration Protocol Ascorbic Acid 500 mg 08/16/24 21:00 08/21/24 09:01 Ascorbic Acid 500 Mg Tab PO 500 mg Q12HR@0900,2099 SUKHDEEP Administration Aspirin 81 mg 08/17/24 06:00 08/21/24 06:55 Aspirin 81 Mg PO 81 mg DAILY@0600 SUKHDEEP Administration Atorvastatin Calcium 40 mg 08/16/24 21:00 08/20/24 21:29 Atorvastatin 40 Mg Tab PO 40 mg HS@2100 SUKHDEEP Administration Budesonide 0.5 mg 08/16/24 21:00 08/21/24 08:21 Budesonide 0.5 Mg/2 Ml Nebu INHALATION 0.5 mg RT-BID@ SUKHDEEP Administration Carvedilol 3.125 mg 08/16/24 21:00 08/21/24 09:01 Carvedilol 3.125 Mg Tab PO 3.125 mg BID@899,2099 [facility] Administration Cholecalciferol 10 mcg 08/16/24 21:00 08/21/24 09:02 Cholecalciferol 10 Mcg (400 Iu) Tablet PO 10 mcg Q12HR@0900,2099 [facility] Administration Ezetimibe 10 mg 08/16/24 21:00 08/20/24 21:28 Ezetimibe 10 Mg Tab PO 10 mg HS@2100 SUKHDEEP Administration Ferrous Sulfate 325 mg 08/16/24 21:00 08/21/24 09:02 Ferrous Sulfate 325 Mg Tab PO 325 mg Q12HR@899,2099 [facility] Administration Fluticasone Propionate 2 spray 08/17/24 09:00 08/21/24 09:02 Fluticasone Nasal 50mcg/[place] 16gm Btl NASAL 2 spray DAILY@0900 [facility] Administration Furosemide 40 mg 08/16/24 12:00 08/21/24 07:06 Furosemide 10 Mg/Ml 4 Ml Vial IV 40 mg Q12HR SUKHDEEP Administration Gabapentin 100 mg 08/16/24 21:00 08/21/24 09:02 Gabapentin 100 Mg Cap PO 100 mg Q12HR@899,2099 [facility] Administration Sodium Chloride 1,000 mls @ 20 mls/hr 08/16/24 02:30 08/21/24 04:38 Saline 0.9% IV Not Given .Q24H SUKHDEEP Lactobacillus Acidophilus 1 each 08/16/24 21:00 08/21/24 09:02 Lactobacillus Acidophilus/Pect 1 Each Capsule PO 1 each BID@0900,2099 [facility] Administration Loratadine 10 mg 08/17/24 09:00 08/21/24 09:01 Loratadine 10 Mg Tab PO 10 mg DAILY@0900 SUKHDEEP Administration Magnesium Oxide 400 mg 08/16/24 21:00 08/20/24 21:29 Magnesium Oxide 400 Mg Tab PO 400 mg HS@2100 SUKHDEEP Administration Melatonin 3 mg 08/16/24 21:00 08/20/24 21:28 Melatonin 3 Mg Tablet PO 3 mg HS@2100 SUKHDEEP Administration Methylprednisolone Sodium Succinate 60 mg 08/19/24 09:30 08/21/24 06:55 Methylprednisolone Sod Succi 125 Mg/2 Ml Vial IV 60 mg Q6HR SUKHDEEP Administration Miscellaneous Information 1 each 08/16/24 04:51 Pneumonia Protocol Utilized 1 Each Misc PO ONCE PRN Per Protocol Miscellaneous Information 1 each 08/18/24 13:48 Potassium Replacement Protocol 1 Each Misc MISCELLANE DAILY PRN Per Protocol Protocol Multivitamins 1 each 08/17/24 09:00 08/21/24 09:02 Multivitamins, Thera 1 Each Tab PO 1 each DAILY@09 [facility] Administration Pantoprazole Sodium 40 mg 08/17/24 09:00 08/21/24 09:01 Pantoprazole 40 Mg Tablet PO 40 mg DAILY@09 [facility] Administration Petrolatum 1 applic 08/20/24 10:00 08/21/24 09:02 Zinc Oxide Paste (Z-Guard) 1 Applic TOPICAL 1 applic DIRECTED SUKHDEEP Administration Protocol Polyethylene Glycol 17 gm 08/17/24 09:00 08/21/24 09:03 Polyethylene Glycol 3350 17 Gm Powd.Pack PO Not Given DAILY@0900 [facility] Potassium Chloride 20 meq 08/16/24 21:00 08/20/24 21:29 Potassium Chloride Er 20 Meq Tab.Er PO 20 meq HS@2100 [facility] Administration Senna 17.2 mg 08/16/24 21:00 08/21/24 09:03 Sennosides 8.6 Mg Tab PO Not Given Q12HR@899,2099 [facility] Objective - Vital Signs Vital signs: Vital Signs Temp 97.7 F 08/21/24 08:00 Pulse 81 08/21/24 09:00 Resp 12 08/21/24 09:00 BP 101/85 08/21/24 09:00 Pulse Ox 94 L 08/21/24 09:00 FiO2 80 08/21/24 08:22 Intake & Output 08/20/24 08/21/24 08/21/24 18:59 06:59 18:59 Intake Total 730 240 30 Output Total 610 690 35 Balance 120 -450 -5 Weight 89.4 kg Intake: IV 130 110 30 0.9 130 110 30 Intake, IV Titration 400 Amount Potassium Chloride 10 meq 400 In Water For Injection 1 100ml.bag @ 100 mls/hr IVPB Q1H SUKHDEEP Rx#: [id number] Oral 200 130 0 Output: Urine 610 690 35 Other: Voiding Method Indwelling Catheter Indwelling Catheter Indwelling Catheter # Voids 1 1 # Bowel Movements 1 0 - Exam GENERAL: The patient is alert and oriented x3, not in any acute distress. Well developed, well nourished. HEENT: Pupils are round and equally reacting to light. EOMI. No scleral icterus. No conjunctival pallor. Normocephalic, atraumatic. No pharyngeal erythema. No thyromegaly. CARDIOVASCULAR: S1 and S2 present. No murmurs, rubs, or gallops. PULMONARY: Chest is clear to auscultation, no wheezing , bilateral crackles. ABDOMEN: Soft, nontender, nondistended, normoactive bowel sounds. No palpable organomegaly. MUSCULOSKELETAL: No joint swelling or deformity. EXTREMITIES: No cyanosis, clubbing, or pedal edema. NEUROLOGICAL: Gross neurological examination did not reveal any focal deficits. SKIN: No rashes. no petechiae. - Labs CBC & Chem 7: 08/21/24 03:14 08/21/24 03:14 Labs: Abnormal Lab Results - Last 24 Hours (Table) 08/21/24 08/21/24 08/21/24 Range/Units 03:14 03:14 09:50 WBC 15.36 H (4.50-10.00) 10*3/uL RBC 3.89 L (4.10-5.20) 10*6/uL Hgb 10.9 L (12.0-15.0) g/dL Hct 35.7 L (37.2-46.3) % MCHC 30.5 L (32.0-37.0) g/dL MPV 9.3 L (9.5-12.2) fL Immature Gran # 0.70 H (0.00-0.04) 10*3/uL Neutrophils # 13.54 H (1.80-7.70) 10*3/uL Lymphocytes # 0.66 L (0.90-5.00) 10*3/uL Eosinophils # 0.00 L (0.04-0.35) 10*3/uL ABG pH 7.48 H (7.35-7.45) ABG pCO2 57 H (35-45) mmHg ABG pO2 68 L (83-108) mmHg ABG HCO3 42 H* (21-25) mmol/L ABG Total CO2 44 H (19-24) mmol/L Hemoglobin 11.2 L (11.4-16.0) gm/dL Sodium 135 L (137-145) mmol/L Chloride 87 L (98-107) mmol/L Carbon Dioxide 41 H* (22-30) mmol/L BUN 37 H (7-17) mg/dL Glucose 152 H (74-99) mg/dL Magnesium 2.7 H (1.6-2.3) mg/dL Assessment and Plan Assessment: 1. Acute hypoxic respiratory failure; likely multifactorial; related to CHF exacerbation and community-acquired pneumonia - Patient is currently on BiPAP at night time; plan to titrate or wean FiO2 keeping O2 saturation greater than 92% 2. Acute exacerbation CHF most likely diagnosis - Patient has been placed on IV diuretic; monitor strict FABBY's, daily weights, low-salt and fluid restricted diet; continue with home dose of metolazone 5 mg daily - Recommend 2D echo - Consult cardiology 3. Community-acquired pneumonia, possible - Patient has been placed on IV antibiotics; bronchodilator nebulizer treatments 4 times daily and as needed; will monitor CBC, CRP and procalcitonin - Consult pulmonary; appreciate recommendations 4. Altered mental status; likely toxic metabolic encephalopathy related to above 5. Hyponatremia; sodium level at 127; we will monitor electrolytes closely 6. Hyperlipidemia; Lipitor 40 mg p.o. nightly; Zetia 10 mg daily 7. History of gout; allopurinol 100 mg daily 8. Hypertension; Coreg 3.125 mg daily 9. New onset A-fib, started with Eliquis, rate controlled. 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
--- NOTE | 2024-08-21 16:15 | P.PN ---
Subjective Progress Note Date: 08/21/24 On 08/18/2024, the patient is being seen for a follow-up. This is a 84-year-old female patient who is currently being seen for CHF and the patient is being treated accordingly. The chest x-ray showed also small bilateral pleural effusions along with cardiomegaly. The patient has extensive instrumentation and spinal fixation involving the thoracic spine. The patient is currently on Coreg 3.125 mg twice a day, Lasix 40 mg IV every 12 hours and Aldactone 25 mg p.o. daily. The patient is also on Zaroxolyn 5 mg p.o. daily. The patient is maintained on oxygen and she is currently on 7 L with a pulse ox of 93%. Blood work from today shows a white cell count of 14.7 with a hemoglobin 9.6 and a platelet count of 413. Sodium is at 133, potassium is at 3.4, BUN is at 26 with a creatinine of 0.9. Serum bicarb is at 38. The patient is also on empiric antibiotic coverage and the patient remains on IV Rocephin. Rest of the medications remain essentially unchanged. Noted, the patient was initially on a BiPAP and the patient is currently off the BiPAP on 7 L of oxygen by nasal cannula. On 08/19/2024, the patient became very intensive care unit. The patient got transferred to the ICU overnight as the patient was found to be more hypoxic and more short of breath and she also had a drop in her blood pressure. She was given a bolus of 500 cc and the patient's blood pressure has normalized. She was on 60s of oxygen by nasal cannula and the patient was transitioned to BiPAP at a pressure of 18 over 8 cm of water with an FiO2 of 60%. For now, the patient is tolerating the BiPAP reasonably well. Her minute ventilation is around 6.8 L/min and the generated tidal volume is 270 cc. The blood gas showed a pH of 7.44 with a PCO2 of 65 and PO2 of 78 and a fluid balance is -929 cc over the past 24 hours. The patient remains on DuoNebtreatment [id number]. The patient remains on IV Solu-Medrol. The diuretics will be placed on hold as the patient has developed alkalosis. The sodium levels at 135, potassium is 3.5, bicarb is at 39 with a chloride of 88. BUN is 30 with a creatinine of 0.7. WBC count 16.9 with a hemoglobin 10.2 and a platelet count of 370. Chest x-ray from this morning shows small bilateral pleural effusion and cardiomegaly. Clinically, the patient is tolerating the BiPAP well. The patient is arousable. No focal neurological deficits. Echocardiogram was ordered and this has not been completed yet. On today's evaluation of 08/20/2024, the patient was taken off the BiPAP. Note that overnight, the patient was kept on a BiPAP pressure of 18 over 8 cm of water and FiO2 of 60%. Currently she is on 6 L of oxygen by nasal cannula. More arousable and communicating. Her breathing is remains quite shallow and the patient was not offered an incentive spirometer. IV fluids are currently at KVO. Fluid balance is -1.1 L. The patient was also noted to be in atrial fibrillation. Meanwhile, the chest x-ray from today is showing left lower lobe atelectasis/collapse and some right basilar airspace disease with possible development of pleural effusions. Based on that, ultrasound of the chest was ordered to evaluate for any pleural effusions. Meanwhile, the patient remains on bronchodilators with DuoNeb nebulized treatments [id number], IV Solu- Medrol 60 mg every 6 hours and the patient is also on Lasix 40 mg IV every 12 hours. Remains on anticoagulation with Eliquis 2.5 mg p.o. twice daily. The white cell count is at 12.1 with a heme of 10.2 and a platelet count of 374. BUN 31 with a creatinine of 1.02. Serum bicarb is at 40 and sodium levels at 136 and a potassium level is at 3.6.The echocardiogram was also completed and the patient was found to have a preserved LV function with a normal ejection fraction of 50%. Mild mitral and tricuspid regurgitation. Right-sided pressures were not adequately measured. On 08/21/2024, the patient is being seen for a follow-up. The patient was taken off the BiPAP yesterday and later on during the day, the patient had to be placed back on the BiPAP. Noted the patient was weaned down to 4 L of oxygen by nasal cannula. This morning, she is back on the BiPAP at a pressure of 18/8 w ith an FiO2 of 80%. The minute ventilation is around 9 L/min and the patient is generating a tidal volume of 300 cc. She is lethargic, sleepy at arousable. The blood gas was done that shows a pH of 7.48 with a QNO991 and PO2 of 68 and this was done on 80% BiPAP. A repeat chest x-ray was done today and shows smaller lung volumes. The patient has a small right-sided pleural effusion and the patient has adjacent right basilar opacity and probably some retrocardiac atelectatic changes. The patient also has hardware at multiple levels involving the thoracic spine prior related to thoracic spine fusion. The patient remains on bronchodilators. The patient remains on steroids. The patient is also on diuretics and the patient is currently receiving Lasix 40 mg IV every 12 hours. The fluid balance is -1.1 L over the past 24 hours. Blood work from today shows a white cell count of 15.3 with a hemoglobin 10.9 and a platelet count of 424. His serum bicarb is 41, sodium is 135, potassium level is 4.1, BUN is 37 and the creatinine is 1.04. Objective - Vital Signs Vital signs: Vital Signs Temp 97.7 F 08/21/24 08:00 Pulse 81 08/21/24 09:00 Resp 12 08/21/24 09:00 BP 101/85 08/21/24 09:00 Pulse Ox 94 L 08/21/24 09:00 FiO2 80 08/21/24 08:22 Intake & Output 08/20/24 08/21/24 08/21/24 18:59 06:59 18:59 Intake Total 730 240 30 Output Total 610 690 35 Balance 120 -450 -5 Weight 89.4 kg Intake: IV 130 110 30 0.9 130 110 30 Intake, IV Titration 400 Amount Potassium Chloride 10 meq 400 In Water For Injection 1 100ml.bag @ 100 mls/hr IVPB Q1H COUNT INCLUDES THE [facility] Rx#: [id number] Oral 200 130 0 Output: Urine 610 690 35 Other: Voiding Method Indwelling Catheter Indwelling Catheter Indwelling Catheter # Voids 1 1 # Bowel Movements 1 0 - Exam No significant respiratory distress at rest, currently off BiPAP at the pressure of 18/8 with an FiO2 of 80%, lethargic, arousable, and the patient is able to tolerate the BiPAP reasonably well without any major difficulties. HEENT examination is grossly unremarkable. Mucous membranes are moist. No oral lesions. Neck supple. Full range of motion. No adenopathy thyromegaly or neck vein distention. Cardiovascular examination reveals regular rhythm rate. S1-S2 normal. No S3 or S4. No discernible murmur noted. Lungs reveal scattered rhonchi. No wheezes. Basilar crackles are noted. Breath sounds are equal. The breath sounds are still marked diminished bilaterally. Abdomen soft bowel sounds are heard. No masses or tenderness. Extremities are intact. No significant lower extremity edema on today's evaluation and the pitting edema is improved. Skin is without rash or lesion. Neurologic examination is brief but nonfocal. The patient is able to move all 4 extremities without any limitation. - Labs CBC & Chem 7: 08/21/24 03:14 08/21/24 03:14 Labs: Abnormal Lab Results - Last 24 Hours (Table) 08/21/24 08/21/24 Range/Units 03:14 03:14 WBC 15.36 H (4.50-10.00) 10*3/uL RBC 3.89 L (4.10-5.20) 10*6/uL Hgb 10.9 L (12.0-15.0) g/dL Hct 35.7 L (37.2-46.3) % MCHC 30.5 L (32.0-37.0) g/dL MPV 9.3 L (9.5-12.2) fL Immature Gran # 0.70 H (0.00-0.04) 10*3/uL Neutrophils # 13.54 H (1.80-7.70) 10*3/uL Lymphocytes # 0.66 L (0.90-5.00) 10*3/uL Eosinophils # 0.00 L (0.04-0.35) 10*3/uL Sodium 135 L (137-145) mmol/L Chloride 87 L (98-107) mmol/L Carbon Dioxide 41 H* (22-30) mmol/L BUN 37 H (7-17) mg/dL Glucose 152 H (74-99) mg/dL Magnesium 2.7 H (1.6-2.3) mg/dL Assessment and Plan Plan: Acute hypoxic respiratory failure most likely related to COPD, chronic restrictive lung disease related to obesity and a component of CHF with bilateral pleural effusion. Pneumonia is possible although felt to be less likely at this stage. Echocardiogram was completed and the patient has a preserved LV function. Chest x-ray continues to show atelectatic changes lung bases. There is an obvious left lower lobe collapse and there is also atelectatic changes right lung base. The patient became more short of breath and hypoxic and the patient had to be placed on a BiPAP at a pressure of 18 over 8 cm of water and FiO2 of 80%. Follow-up blood gases shows compensated respiratory acidosis. Patient continues to have a low pO2 consistent with hypoxemia. Able to tolerate BiPAP well. Chest x-ray from today was noted. Altered mental status secondary to above, currently on BiPAP therapy Preserved LV function with an ejection fraction of 60 to 65% Hyponatremia, improved and the sodium level is normal Mild leukocytosis Chronic anemia History of CVA with left-sided hemiplegia. Extensive thoracic spine surgery with instrumentation and spinal fusion. History of gout. Hyperlipidemia. Lifelong non-smoker. [facility] resident. Plan: Patient has chronic respiratory insufficiency. The patient is morbidly obese. The patient has extensive spinal fusion involving the thoracic spine with hardware. In addition, there may be a component of COPD exacerbation/CHF contributing to ongoing hypoxemia. Most recent blood gas shows compensated chronic hypercapnic respiratory failure. Currently on a BiPAP and the same will be continued for now. Keep the patient on the same setting of BiPAP Give the patient Diamox 500 mg IV every 12 hours x 2 doses Obtain follow-up blood gas in a.m. Obtain a follow-up chest x-ray in a.m. Continue Lasix 40 mg IV every 12 hours DuoNeb neb regiment [id number] Continue empiric antibiotic coverage with IV Rocephin IV Solu-Medrol 60 mg every 6 hours Echocardiogram was noted and the patient has a preserved LV function Monitor electrolytes Continue Coreg 3.125 mg twice a day Monitor respiratory status Monitor mental status She is a DNR/DNI CODE STATUS Rest of the medication were reviewed. The patient is on aspirin. The patient on Lipitor. Will continue to follow. This is a critical care evaluation that was done in 35 minutes. Time with Patient: Greater than 30
[2024-08-21] MEDS: LACTATED RINGERS 1,000 ML IV ONE (17:08)
[2024-08-22 04:56] LABS: Basophils # (A) 0.02 10*3/uL (0.00-0.10); Basophils % (A) 0.1 %; Eosinophils # (A) 0.00 10*3/uL (0.04-0.35); Eosinophils % (A) 0.0 %; HCT 35.3 % (37.2-46.3); HGB 10.6 g/dL (12.0-15.0); Lymphocytes # (A) 0.58 10*3/uL (0.90-5.00); Lymphocytes % (A) 4.1 %; MCH 27.5 pg (27.0-32.0); MCHC 30.0 g/dL (32.0-37.0); MCV 91.7 fL (80.0-97.0); Monocytes # (A) 0.28 10*3/uL (0.20-1.00); Monocytes % (A) 2.0 %; Neutrophils # (A) 12.61 10*3/uL (1.80-7.70); Neutrophils % (A) 89.4 %; Platelet Count 341 10*3/uL (140-440); RBC 3.85 10*6/uL (4.10-5.20); RDW 15.2 % (11.5-14.5); WBC 14.11 10*3/uL (4.50-10.00)
[2024-08-22 05:16] LABS: African American GFR (CKD) 45 (>60 ml/min/1.73 sqM); Anion Gap 6 mmol/L; Blood Urea Nitrogen 46 mg/dL (7-17); Calcium 9.8 mg/dL (8.4-10.2); Carbon Dioxide 40 mmol/L (22-30); Chloride 89 mmol/L (98-107); Glucose 170 mg/dL (74-99); Magnesium 2.9 mg/dL (1.6-2.3); Non-African American GFR(CKD) 39 (>60 ml/min/1.73 sqM); Potassium 4.0 mmol/L (3.5-5.1); Sodium 135 mmol/L (137-145)
[2024-08-22 08:05] LABS: ABG PCO2 59 mmHg (35-45); ABG PH 7.45 (7.35-7.45); ABG PO2 117 mmHg (83-108); ABG TCO2 43 mmol/L (19-24); Allen Test Performed? Yes
[2024-08-22 08:08] LABS: ABG HCO3 41 mmol/L (21-25)
--- NOTE | 2024-08-22 09:22 | XR ---
EXAMINATION TYPE: XR chest 1V portable DATE OF EXAM: 08/22/2024 4:41 AM COMPARISON: 08/21/2024 CLINICAL INDICATION: Female, 84 years old with history of ICU, resp bipap, shortness of breath, FINDINGS: Posterior thoracic fusion hardware with multiple levels of vertebroplasty change. Heart mildly enlarg ed. Blunted right costophrenic angle suggesting a small right effusion. Residual medial left basilar opacity remains. There is seems to show ongoing improvement. Extensive overlying artifacts limiting a ssessment of the upper to mid left lung. IMPRESSION: 1. Residual medial left basilar opacity. This seems to show continued improvement. 2. Similar trace right pleural effusion with adjacent atelectasis and/or consolidation. 3. Extensive overlying artifacts. Unable to adequately assess the left upper to midlung. [facility], , 08/22/2024 9:20 AM
--- NOTE | 2024-08-22 15:13 | P.PN ---
Subjective Progress Note Date: 08/22/24 On 08/18/2024, the patient is being seen for a follow-up. This is a 84-year-old female patient who is currently being seen for CHF and the patient is being treated accordingly. The chest x-ray showed also small bilateral pleural effusions along with cardiomegaly. The patient has extensive instrumentation and spinal fixation involving the thoracic spine. The patient is currently on Coreg 3.125 mg twice a day, Lasix 40 mg IV every 12 hours and Aldactone 25 mg p.o. daily. The patient is also on Zaroxolyn 5 mg p.o. daily. The patient is maintained on oxygen and she is currently on 7 L with a pulse ox of 93%. Blood work from today shows a white cell count of 14.7 with a hemoglobin 9.6 and a platelet count of 413. Sodium is at 133, potassium is at 3.4, BUN is at 26 with a creatinine of 0.9. Serum bicarb is at 38. The patient is also on empiric antibiotic coverage and the patient remains on IV Rocephin. Rest of the medications remain essentially unchanged. Noted, the patient was initially on a BiPAP and the patient is currently off the BiPAP on 7 L of oxygen by nasal cannula. On 08/19/2024, the patient became very intensive care unit. The patient got transferred to the ICU overnight as the patient was found to be more hypoxic and more short of breath and she also had a drop in her blood pressure. She was given a bolus of 500 cc and the patient's blood pressure has normalized. She was on 60s of oxygen by nasal cannula and the patient was transitioned to BiPAP at a pressure of 18 over 8 cm of water with an FiO2 of 60%. For now, the patient is tolerating the BiPAP reasonably well. Her minute ventilation is around 6.8 L/min and the generated tidal volume is 270 cc. The blood gas showed a pH of 7.44 with a PCO2 of 65 and PO2 of 78 and a fluid balance is -929 cc over the past 24 hours. The patient remains on DuoNebtreatment [id number]. The patient remains on IV Solu-Medrol. The diuretics will be placed on hold as the patient has developed alkalosis. The sodium levels at 135, potassium is 3.5, bicarb is at 39 with a chloride of 88. BUN is 30 with a creatinine of 0.7. WBC count 16.9 with a hemoglobin 10.2 and a platelet count of 370. Chest x-ray from this morning shows small bilateral pleural effusion and cardiomegaly. Clinically, the patient is tolerating the BiPAP well. The patient is arousable. No focal neurological deficits. Echocardiogram was ordered and this has not been completed yet. On today's evaluation of 08/20/2024, the patient was taken off the BiPAP. Note that overnight, the patient was kept on a BiPAP pressure of 18 over 8 cm of water and FiO2 of 60%. Currently she is on 6 L of oxygen by nasal cannula. More arousable and communicating. Her breathing is remains quite shallow and the patient was not offered an incentive spirometer. IV fluids are currently at KVO. Fluid balance is -1.1 L. The patient was also noted to be in atrial fibrillation. Meanwhile, the chest x-ray from today is showing left lower lobe atelectasis/collapse and some right basilar airspace disease with possible development of pleural effusions. Based on that, ultrasound of the chest was ordered to evaluate for any pleural effusions. Meanwhile, the patient remains on bronchodilators with DuoNeb nebulized treatments [id number], IV Solu- Medrol 60 mg every 6 hours and the patient is also on Lasix 40 mg IV every 12 hours. Remains on anticoagulation with Eliquis 2.5 mg p.o. twice daily. The white cell count is at 12.1 with a heme of 10.2 and a platelet count of 374. BUN 31 with a creatinine of 1.02. Serum bicarb is at 40 and sodium levels at 136 and a potassium level is at 3.6.The echocardiogram was also completed and the patient was found to have a preserved LV function with a normal ejection fraction of 50%. Mild mitral and tricuspid regurgitation. Right-sided pressures were not adequately measured. On 08/21/2024, the patient is being seen for a follow-up. The patient was taken off the BiPAP yesterday and later on during the day, the patient had to be placed back on the BiPAP. Noted the patient was weaned down to 4 L of oxygen by nasal cannula. This morning, she is back on the BiPAP at a pressure of 18/8 w ith an FiO2 of 80%. The minute ventilation is around 9 L/min and the patient is generating a tidal volume of 300 cc. She is lethargic, sleepy at arousable. The blood gas was done that shows a pH of 7.48 with a IKO044 and PO2 of 68 and this was done on 80% BiPAP. A repeat chest x-ray was done today and shows smaller lung volumes. The patient has a small right-sided pleural effusion and the patient has adjacent right basilar opacity and probably some retrocardiac atelectatic changes. The patient also has hardware at multiple levels involving the thoracic spine prior related to thoracic spine fusion. The patient remains on bronchodilators. The patient remains on steroids. The patient is also on diuretics and the patient is currently receiving Lasix 40 mg IV every 12 hours. The fluid balance is -1.1 L over the past 24 hours. Blood work from today shows a white cell count of 15.3 with a hemoglobin 10.9 and a platelet count of 424. His serum bicarb is 41, sodium is 135, potassium level is 4.1, BUN is 37 and the creatinine is 1.04. On 08/22/2024, the patient is awake and alert. Overnight, the patient spent on BiPAP at a pressure of 18/8 with FiO2 of 60%. Morning blood gas showed a pH of 7.45 with a pCO2 of 59 and a PO217. Chest x-ray is essentially unchanged. This is a limited chest x-ray due to the patient's body habitus and thoracic kyphosis. The patient has trace right-sided pleural effusion and adjacent atelectasis and the patient also has thoracic fusion hardware and multiple levels of vertebroplasty. The patient has some mild cardiomegaly. No airspace disease or consolidation. The patient was taken off the BiPAP and the patient was placed on oxygen and she is currently on oxygen at 4 L/min nasal cannula. She is able to maintain a pulse ox above 90%. Awake and alert and communicating. She is complaining of oral dryness. She is also requesting some food intake. The white cell count is 14.1, hemoglobin is at 10.6 and a platelet count of 341. Sodium is at 135, BUN is 46 and the creatinine is at 1.2. Fluid balance is in the order of -330 cc over the past 24 hours. The patient remains on diuretics with IV Lasix. Remains on bronchodilators. Remains on steroids. Remains on Diamox. Cultures involving blood culture was negative. Objective - Vital Signs Vital signs: Vital Signs Temp 98.3 F 08/22/24 04:00 Pulse 80 08/22/24 08:19 Resp 14 08/22/24 07:00 BP 112/68 08/22/24 07:00 Pulse Ox 98 08/22/24 07:00 FiO2 70 08/22/24 08:04 Intake & Output 08/21/24 08/22/24 08/22/24 18:59 06:59 18:59 Intake Total 1130 350 70 Output Total 150 275 15 Balance 980 75 55 Weight 90.8 kg Intake: IV 130 110 10 0.9 130 110 10 Intake, IV Titration 1000 Amount Lactated Ringers 1,000 ml 1000 @ 999 mls/hr IV .Q1H1M ONE Rx#:[id number] Oral 0 240 60 Output: Urine 150 275 15 Other: Voiding Method Indwelling Catheter Indwelling Catheter # Voids 1 # Bowel Movements 0 - Exam No significant respiratory distress at rest, currently off BiPAP and transition to oxygen at 4 L/min nasal cannula. Awake and alert and communicating. HEENT examination is grossly unremarkable. Mucous membranes are moist. No oral lesions. Neck supple. Full range of motion. No adenopathy thyromegaly or neck vein distention. Cardiovascular examination reveals regular rhythm rate. S1-S2 normal. No S3 or S4. No discernible murmur noted. Lungs reveal scattered rhonchi. No wheezes. Basilar crackles are noted. Breath sounds are equal. The breath sounds are still marked diminished bilaterally. Abdomen soft bowel sounds are heard. No masses or tenderness. Extremities are intact. No significant lower extremity edema on today's evaluat ion and the pitting edema is improved. Skin is without rash or lesion. Neurologic examination is brief but nonfocal. The patient is able to move all 4 extremities without any limitation. - Labs CBC & Chem 7: 08/22/24 04:40 08/22/24 04:40 Labs: Abnormal Lab Results - Last 24 Hours (Table) 08/21/24 08/22/24 08/22/24 Range/Units 09:50 04:40 04:40 WBC 14.11 H (4.50-10.00) 10*3/uL RBC 3.85 L (4.10-5.20) 10*6/uL Hgb 10.6 L (12.0-15.0) g/dL Hct 35.3 L (37.2-46.3) % MCHC 30.0 L (32.0-37.0) g/dL MPV 8.9 L (9.5-12.2) fL Immature Gran # 0.62 H (0.00-0.04) 10*3/uL Neutrophils # 12.61 H (1.80-7.70) 10*3/uL Lymphocytes # 0.58 L (0.90-5.00) 10*3/uL Eosinophils # 0.00 L (0.04-0.35) 10*3/uL ABG pH 7.48 H (7.35-7.45) ABG pCO2 57 H (35-45) mmHg ABG pO2 68 L (83-108) mmHg ABG HCO3 42 H* (21-25) mmol/L ABG Total CO2 44 H (19-24) mmol/L ABG O2 Saturation (94-97) % Hemoglobin 11.2 L (11.4-16.0) gm/dL Sodium 135 L (137-145) mmol/L Chloride 89 L (98-107) mmol/L Carbon Dioxide 40 H (22-30) mmol/L BUN 46 H (7-17) mg/dL Creatinine 1.28 H (0.52-1.04) mg/dL Glucose 170 H (74-99) mg/dL Magnesium 2.9 H (1.6-2.3) mg/dL 08/22/24 Range/Units 08:02 WBC (4.50-10.00) 10*3/uL RBC (4.10-5.20) 10*6/uL Hgb (12.0-15.0) g/dL Hct (37.2-46.3) % MCHC (32.0-37.0) g/dL MPV (9.5-12.2) fL Immature Gran # (0.00-0.04) 10*3/uL Neutrophils # (1.80-7.70) 10*3/uL Lymphocytes # (0.90-5.00) 10*3/uL Eosinophils # (0.04-0.35) 10*3/uL ABG pH (7.35-7.45) ABG pCO2 59 H (35-45) mmHg ABG pO2 117 H (83-108) mmHg ABG HCO3 41 H* (21-25) mmol/L ABG Total CO2 43 H (19-24) mmol/L ABG O2 Saturation 99.1 H (94-97) % Hemoglobin 10.9 L (11.4-16.0) gm/dL Sodium (137-145) mmol/L Chloride (98-107) mmol/L Carbon Dioxide (22-30) mmol/L BUN (7-17) mg/dL Creatinine (0.52-1.04) mg/dL Glucose (74-99) mg/dL Magnesium (1.6-2.3) mg/dL Microbiology - Last 24 Hours (Table) 08/16/24 05:00 Blood Culture - Final Blood Assessment and Plan Plan: Acute hypoxic respiratory failure most likely related to COPD, chronic restrictive lung disease related to obesity and a component of CHF with bilatera l pleural effusion. Pneumonia is possible although felt to be less likely at this stage. Echocardiogram was completed and the patient has a preserved LV function. Chest x-ray continues to show atelectatic changes lung bases. There is an obvious left lower lobe collapse and there is also atelectatic changes right lung base. The patient became more short of breath and hypoxic and the patient had to be placed on a BiPAP at a pressure of 18 over 8 cm of water and FiO2 of 60% and the patient is currently transition to 4 L of O2 nasal cannula. Blood gas was noted. Chest x-ray was noted. Altered mental status secondary to above, improved while on the BiPAP, currently on 4 L of oxygen nasal cannula Preserved LV function with an ejection fraction of 60 to 65% Hyponatremia, improved and the sodium level is normal Mild leukocytosis Chronic anemia History of CVA with left-sided hemiplegia. Extensive thoracic spine surgery with instrumentation and spinal fusion. History of gout. Hyperlipidemia. Lifelong non-smoker. [facility] Plan: Patient has chronic respiratory insufficiency. The patient is morbidly obese. The patient has extensive spinal fusion involving the thoracic spine with hardware. In addition, there may be a component of COPD exacerbation/CHF cont ributing to ongoing hypoxemia. Most recent blood gas shows compensated chronic hypercapnic respiratory failure. Overnight Keep the patient on the same setting of BiPAP, overnight and meanwhile the p atient is on 4 L of oxygen by nasal cannula Stop IV Lasix Continue Diamox 500 mg IV every 12 hours x 2 doses Obtain follow-up blood gas in a.m. Obtain a follow-up chest x-ray in a.m. Lolis esqueda regiment [id number] Continue empiric antibiotic coverage with IV Rocephin IV Solu-Medrol 60 mg every 12 hours Echocardiogram was noted and the patient has a preserved LV function Monitor electrolytes Continue Coreg 3.125 mg twice a day Monitor respiratory status Monitor mental status She is a DNR/DNI CODE STATUS Rest of the medication were reviewed. The patient is on aspirin. The patient on Lipitor. Will continue to follow. This is a critical care evaluation that was done in 35 minutes. Time with Patient: Greater than 30
[2024-08-22] MEDS: methylPREDNISolone SOD SUCCI 125 MG/2 ML VIAL IV SCH (22:01)
--- NOTE | 2024-08-22 23:43 | P.PN ---
Subjective 84-year-old female patient who resides at [facility] on the [place] with previous CVA and left-sided hemiplegia, congestive heart failure, hyperlipidemia, hypertension, lifelong non-smoker who was brought into the emergency room early this morning with shortness of breath and cough. -- Chest x-ray reveals bilateral lower lobe consolidations. -Blood work completed in the ED reveals White count 12.5. Hemoglobin 9.5. Platelets 391. Sodium 127. Potassium 3.6. Bicarb 40. BUN 14. Creatinine 0.38. Troponin 0.042. 0.038. proBNP 5540. - While in the ED patient desaturated and had to be placed on BiPAP; pulmonary consult was placed Patient seen and evaluated sitting up in bed; she is on BiPAP, with settings of 16/8, 60%. She continues on azithromycin and Rocephin. He is much more awake today than she was yesterday. White count was 18.8, hemoglobin 10.3, hematocrit 32.7, platelet count 3 96,000. Sodium 130, potassium 2.4, chlorides 80, CO2 40, BUN 21, creatinine 0.63. Calcium is 9.5. --Pulmonary service on board and recommending to continue with current antibiotic 08/18 Patient mentation improved She still short of breath especially with talking She is not the BiPAP machine overnight Currently she is on oxygen saturating 96% and on 8 L/min At home she said she is just 2 to 4 units Echocardiogram is pending Patient is currently being treated for CHF and pneumonia on ceftriaxone and Zithromax and IV Lasix however her procalcitonin less than 0.20 therefore patient remains on IV Lasix 40 mg twice daily and metolazone 5 mg once daily but also she is on ceftriaxone Zithromax pulmonary pulmonary consult team on the case 08/19 Patient with acute CHF on IV Lasix 4 mg twice daily 100 requiring BiPAP at night. 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 Patient made about 8499-0850 mL urine output yesterday. Patient was transferred to the ICU anticipating she might need pressors. Resumed 2 boluses of normal saline to 50 mL, blood pressure improved and currently 100/69 and higher. Chest x-ray from today showing cardiomegaly and bilateral basal infiltrates, correlate for CHF. I reviewed chest x-ray by myself and agree. Remains on IV Lasix milligram twice daily metolazone 5 mg once daily and ceftriaxone 08/20 Patient remains in the ICU requiring BiPAP overnight and this morning Patient is poor historian because of that and she is sleepy Her breathing is slightly better. She developed hypotensive blood pressure and sent to the ICU. Blood pressure has been stable after she received 2 boluses of 250 mL. Currently kept on Lasix 40 mg twice daily while metolazone was discontinued because of this hypotension Patient also remains on ceftriaxone and Zithromax Echocardiogram is pending 08/21 Patient remains on BiPAP this morning, she is not really getting improved as she feels no chest pain Vitals stable and afebrile WBC 15.3 hemoglobin 10.9 potassium 4.1. Chest x-ray showing persistent left basilar opacity and a new right pleural effusion with adjacent atelectasis versus consolidation from today chest x-ray. Patient remains on ceftriaxone and Zithromax. IV fluid was discontinued and placed on IV Lasix Metolazone was stopped. Patient started on IV Solu-Medrol. Also patient has A-fib new onset by cardiology started on Eliquis 2.5 mg 08/22 Patient remains on BiPAP Today patient was moved of the ICU to the general medical floor Also her IV Lasix was stopped with creatinine went up 1.0 up to 1.2 Also patient received a liter of normal saline and started on IV Solu-Medrol 60 mg Continued on Demadex diuretics. Repeat chest x-ray showing improving low basilar opacity. Objective - Vital Signs Vital signs: Vital Signs Temp 98.4 F 08/22/24 08:00 Pulse 81 08/22/24 15:23 Resp 13 08/22/24 15:23 BP 98/84 08/22/24 14:00 Pulse Ox 98 08/22/24 14:00 FiO2 50 08/22/24 15:24 Intake & Output 08/21/24 08/22/24 08/22/24 18:59 06:59 18:59 Intake Total 1130 350 490 Output Total 150 275 155 Balance 980 75 335 Weight 90.8 kg 90.8 kg Intake: IV 130 110 70 0.9 130 110 70 Intake, IV Titration 1000 Amount Lactated Ringers 1,000 ml 1000 @ 999 mls/hr IV .Q1H1M ONE Rx#:[id number] Oral 0 240 420 Output: Urine 150 275 155 Other: Voiding Method Indwelling Catheter Indwelling Catheter Indwelling Catheter # Voids 1 # Bowel Movements 0 - Exam GENERAL: The patient is alert and oriented x3, not in any acute distress. Well developed, well nourished. HEENT: Pupils are round and equally reacting to light. EOMI. No scleral icterus. No conjunctival pallor. Normocephalic, atraumatic. No pharyngeal erythema. No thyromegaly. CARDIOVASCULAR: S1 and S2 present. No murmurs, rubs, or gallops. PULMONARY: Chest is clear to auscultation, no wheezing , bilateral crackles. ABDOMEN: Soft, nontender, nondistended, normoactive bowel sounds. No palpable organomegaly. MUSCULOSKELETAL: No joint swelling or deformity. EXTREMITIES: No cyanosis, clubbing, or pedal edema. NEUROLOGICAL: Gross neurological examination did not reveal any focal deficits. SKIN: No rashes. no petechiae. - Labs CBC & Chem 7: 08/22/24 04:40 08/22/24 04:40 Labs: Abnormal Lab Results - Last 24 Hours (Table) 08/22/24 08/22/24 08/22/24 Range/Units 04:40 04:40 08:02 WBC 14.11 H (4.50-10.00) 10*3/uL RBC 3.85 L (4.10-5.20) 10*6/uL Hgb 10.6 L (12.0-15.0) g/dL Hct 35.3 L (37.2-46.3) % MCHC 30.0 L (32.0-37.0) g/dL MPV 8.9 L (9.5-12.2) fL Immature Gran # 0.62 H (0.00-0.04) 10*3/uL Neutrophils # 12.61 H (1.80-7.70) 10*3/uL Lymphocytes # 0.58 L (0.90-5.00) 10*3/uL Eosinophils # 0.00 L (0.04-0.35) 10*3/uL ABG pCO2 59 H (35-45) mmHg ABG pO2 117 H (83-108) mmHg ABG HCO3 41 H* (21-25) mmol/L ABG Total CO2 43 H (19-24) mmol/L ABG O2 Saturation 99.1 H (94-97) % Hemoglobin 10.9 L (11.4-16.0) gm/dL Sodium 135 L (137-145) mmol/L Chloride 89 L (98-107) mmol/L Carbon Dioxide 40 H (22-30) mmol/L BUN 46 H (7-17) mg/dL Creatinine 1.28 H (0.52-1.04) mg/dL Glucose 170 H (74-99) mg/dL Magnesium 2.9 H (1.6-2.3) mg/dL Microbiology - Last 24 Hours (Table) 08/16/24 05:00 Blood Culture - Final Blood Assessment and Plan Assessment: 1. Acute hypoxic respiratory failure; likely multifactorial; related to CHF exacerbation and community-acquired pneumonia - Patient is currently on BiPAP at night time; plan to titrate or wean FiO2 keeping O2 saturation greater than 92% 2. Acute exacerbation CHF most likely diagnosis -Discontinue IV Lasix -Continue with Demadex - 2D echo reviewed - Consult cardiology 3. Acute COPD exacerbation is suspected patient unlikely has pneumonia - Antibiotics discontinued - Patient started on IV Solu-Medrol on 08/21 4. Altered mental status; likely toxic metabolic encephalopathy related to abo ve 5. Hyponatremia; sodium level at 127; we will monitor electrolytes closely 6. Hyperlipidemia; Lipitor 40 mg p.o. nightly; Zetia 10 mg daily 7. History of gout; allopurinol 100 mg daily 8. Hypertension; Coreg 3.125 mg daily 9. New onset A-fib, started with Eliquis, rate controlled. 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
[2024-08-23 01:48] LABS: Glucose,Whole Blood 187 mg/dL (70-110)
[2024-08-23 08:03] LABS: HCT 37.4 % (37.2-46.3); HGB 11.3 g/dL (12.0-15.0); MCH 27.8 pg (27.0-32.0); MCHC 30.2 g/dL (32.0-37.0); MCV 91.9 fL (80.0-97.0); Platelet Count 310 10*3/uL (140-440); RBC 4.07 10*6/uL (4.10-5.20); RDW 15.3 % (11.5-14.5); WBC 13.66 10*3/uL (4.50-10.00)
[2024-08-23 08:21] LABS: African American GFR (CKD) 38 (>60 ml/min/1.73 sqM); Anion Gap 4 mmol/L; Blood Urea Nitrogen 53 mg/dL (7-17); Calcium 10.1 mg/dL (8.4-10.2); Carbon Dioxide 39 mmol/L (22-30); Chloride 94 mmol/L (98-107); Glucose 186 mg/dL (74-99); Non-African American GFR(CKD) 33 (>60 ml/min/1.73 sqM); Potassium 3.8 mmol/L (3.5-5.1); Sodium 137 mmol/L (137-145)
--- NOTE | 2024-08-23 16:12 | P.PN ---
Subjective Progress Note Date: 08/23/24 On 08/18/2024, the patient is being seen for a follow-up. This is a 84-year-old female patient who is currently being seen for CHF and the patient is being treated accordingly. The chest x-ray showed also small bilateral pleural effusions along with cardiomegaly. The patient has extensive instrumentation and spinal fixation involving the thoracic spine. The patient is currently on Coreg 3.125 mg twice a day, Lasix 40 mg IV every 12 hours and Aldactone 25 mg p.o. daily. The patient is also on Zaroxolyn 5 mg p.o. daily. The patient is maintained on oxygen and she is currently on 7 L with a pulse ox of 93%. Blood work from today shows a white cell count of 14.7 with a hemoglobin 9.6 and a platelet count of 413. Sodium is at 133, potassium is at 3.4, BUN is at 26 with a creatinine of 0.9. Serum bicarb is at 38. The patient is also on empiric antibiotic coverage and the patient remains on IV Rocephin. Rest of the medications remain essentially unchanged. Noted, the patient was initially on a BiPAP and the patient is currently off the BiPAP on 7 L of oxygen by nasal cannula. On 08/19/2024, the patient became very intensive care unit. The patient got transferred to the ICU overnight as the patient was found to be more hypoxic and more short of breath and she also had a drop in her blood pressure. She was given a bolus of 500 cc and the patient's blood pressure has normalized. She was on 60s of oxygen by nasal cannula and the patient was transitioned to BiPAP at a pressure of 18 over 8 cm of water with an FiO2 of 60%. For now, the patient is tolerating the BiPAP reasonably well. Her minute ventilation is around 6.8 L/min and the generated tidal volume is 270 cc. The blood gas showed a pH of 7.44 with a PCO2 of 65 and PO2 of 78 and a fluid balance is -929 cc over the past 24 hours. The patient remains on DuoNebtreatment [id number]. The patient remains on IV Solu-Medrol. The diuretics will be placed on hold as the patient has developed alkalosis. The sodium levels at 135, potassium is 3.5, bicarb is at 39 with a chloride of 88. BUN is 30 with a creatinine of 0.7. WBC count 16.9 with a hemoglobin 10.2 and a platelet count of 370. Chest x-ray from this morning shows small bilateral pleural effusion and cardiomegaly. Clinically, the patient is tolerating the BiPAP well. The patient is arousable. No focal neurological deficits. Echocardiogram was ordered and this has not been completed yet. On today's evaluation of 08/20/2024, the patient was taken off the BiPAP. Note that overnight, the patient was kept on a BiPAP pressure of 18 over 8 cm of water and FiO2 of 60%. Currently she is on 6 L of oxygen by nasal cannula. More arousable and communicating. Her breathing is remains quite shallow and the patient was not offered an incentive spirometer. IV fluids are currently at KVO. Fluid balance is -1.1 L. The patient was also noted to be in atrial fibrillation. Meanwhile, the chest x-ray from today is showing left lower lobe atelectasis/collapse and some right basilar airspace disease with possible development of pleural effusions. Based on that, ultrasound of the chest was ordered to evaluate for any pleural effusions. Meanwhile, the patient remains on bronchodilators with DuoNeb nebulized treatments [id number], IV Solu- Medrol 60 mg every 6 hours and the patient is also on Lasix 40 mg IV every 12 hours. Remains on anticoagulation with Eliquis 2.5 mg p.o. twice daily. The white cell count is at 12.1 with a heme of 10.2 and a platelet count of 374. BUN 31 with a creatinine of 1.02. Serum bicarb is at 40 and sodium levels at 136 and a potassium level is at 3.6.The echocardiogram was also completed and the patient was found to have a preserved LV function with a normal ejection fraction of 50%. Mild mitral and tricuspid regurgitation. Right-sided pressures were not adequately measured. On 08/21/2024, the patient is being seen for a follow-up. The patient was taken off the BiPAP yesterday and later on during the day, the patient had to be placed back on the BiPAP. Noted the patient was weaned down to 4 L of oxygen by nasal cannula. This morning, she is back on the BiPAP at a pressure of 18/8 w ith an FiO2 of 80%. The minute ventilation is around 9 L/min and the patient is generating a tidal volume of 300 cc. She is lethargic, sleepy at arousable. The blood gas was done that shows a pH of 7.48 with a LAU430 and PO2 of 68 and this was done on 80% BiPAP. A repeat chest x-ray was done today and shows smaller lung volumes. The patient has a small right-sided pleural effusion and the patient has adjacent right basilar opacity and probably some retrocardiac atelectatic changes. The patient also has hardware at multiple levels involving the thoracic spine prior related to thoracic spine fusion. The patient remains on bronchodilators. The patient remains on steroids. The patient is also on diuretics and the patient is currently receiving Lasix 40 mg IV every 12 hours. The fluid balance is -1.1 L over the past 24 hours. Blood work from today shows a white cell count of 15.3 with a hemoglobin 10.9 and a platelet count of 424. His serum bicarb is 41, sodium is 135, potassium level is 4.1, BUN is 37 and the creatinine is 1.04. On 08/22/2024, the patient is awake and alert. Overnight, the patient spent on BiPAP at a pressure of 18/8 with FiO2 of 60%. Morning blood gas showed a pH of 7.45 with a pCO2 of 59 and a PO217. Chest x-ray is essentially unchanged. This is a limited chest x-ray due to the patient's body habitus and thoracic kyphosis. The patient has trace right-sided pleural effusion and adjacent atelectasis and the patient also has thoracic fusion hardware and multiple levels of vertebroplasty. The patient has some mild cardiomegaly. No airspace disease or consolidation. The patient was taken off the BiPAP and the patient was placed on oxygen and she is currently on oxygen at 4 L/min nasal cannula. She is able to maintain a pulse ox above 90%. Awake and alert and communicating. She is complaining of oral dryness. She is also requesting some food intake. The white cell count is 14.1, hemoglobin is at 10.6 and a platelet count of 341. Sodium is at 135, BUN is 46 and the creatinine is at 1.2. Fluid balance is in the order of -330 cc over the past 24 hours. The patient remains on diuretics with IV Lasix. Remains on bronchodilators. Remains on steroids. Remains on Diamox. Cultures involving blood culture was negative. On today's evaluation of 08/23/2024, the patient is being seen for a follow-up. The patient remains on a BiPAP at a pressure of 18/8 with an FiO2 of 50%. She spent the whole night on the BiPAP and currently she will be transitioned to oxygen by nasal cannula at 5 L. Arousable, denies having any specific co mplaints. White cell count of 15.6 with a hemoglobin 11.3 and a platelet count of 310. BUN is 53 and the creatinine is 1.48 and the sodium is at 137. Remains on DuoNeb updrafts. The patient is also on IV Solu-Medrol 60 mg every 12 hours. Remains on anticoagulation with Eliquis 2.5 mg twice a day. Remains on a combination of Perforomist and Pulmicort nebulized unit twice a day. Will be off of the diet. No focal neurological deficits. Rest of the medications are essentially unchanged. Objective - Vital Signs Vital signs: Vital Signs Temp 97.2 F L 08/23/24 09:10 Pulse 69 08/23/24 09:10 Resp 14 08/23/24 09:10 BP 126/76 08/23/24 09:10 Pulse Ox 98 08/23/24 09:10 FiO2 50 08/23/24 09:10 Intake & Output 08/22/24 08/23/24 08/23/24 18:59 06:59 18:59 Intake Total 490 Output Total 155 200 Balance 335 -200 Weight 90.8 kg Intake: IV 70 0.9 70 Oral 420 Output: Urine 155 200 Other: Voiding Method Indwelling Catheter Indwelling Catheter Indwelling Catheter - Exam No significant respiratory distress at rest, currently off BiPAP and transition to oxygen at 5 L/min nasal cannula. Awake and alert and communicating. HEENT examination is grossly unremarkable. Mucous membranes are moist. No oral lesions. Neck supple. Full range of motion. No adenopathy thyromegaly or neck vein distention. Cardiovascular examination reveals regular rhythm rate. S1-S2 normal. No S3 or S4. No discernible murmur noted. Lungs reveal scattered rhonchi. No wheezes. Basilar crackles are noted. Breath sounds are equal. The breath sounds are still marked diminished bilaterally. Abdomen soft bowel sounds are heard. No masses or tenderness. Extremities are intact. No significant lower extremity edema on today's evaluation and the pitting edema is improved. Skin is without rash or lesion. Neurologic examination is brief but nonfocal. The patient is able to move all 4 extremities without any limitation. - Labs CBC & Chem 7: 08/23/24 07:52 08/23/24 07:52 Labs: Abnormal Lab Results - Last 24 Hours (Table) 08/23/24 08/23/24 08/23/24 Range/Units 01:46 07:52 07:52 WBC 13.66 H (4.50-10.00) 10*3/uL RBC 4.07 L (4.10-5.20) 10*6/uL Hgb 11.3 L (12.0-15.0) g/dL MCHC 30.2 L (32.0-37.0) g/dL MPV 9.0 L (9.5-12.2) fL Chloride 94 L (98-107) mmol/L Carbon Dioxide 39 H (22-30) mmol/L BUN 53 H (7-17) mg/dL Creatinine 1.48 H (0.52-1.04) mg/dL Glucose 186 H (74-99) mg/dL POC Glucose (mg/dL) 187 H (70-110) mg/dL Assessment and Plan Plan: Acute hypoxic respiratory failure most likely related to COPD, chronic restrictive lung disease related to obesity and a component of CHF with bilateral pleural effusion. Pneumonia is possible although felt to be less likely at this stage. Echocardiogram was completed and the patient has a preserved LV function. Chest x-ray continues to show atelectatic changes lung bases. There is an obvious left lower lobe collapse and there is also atelectatic changes right lung base. The patient became more short of breath and hypoxic and the patient had to be placed on a BiPAP at a pressure of 18 over 8 cm of water and FiO2 of 60% and the patient is currently transition to 5 L of O2 nasal cannula. Blood gas was noted. Chest x-ray was noted Altered mental status secondary to above, improved while on the BiPAP, currently on 5 L of oxygen nasal cannula Preserved LV function with an ejection fraction of 60 to 65% Hyponatremia, improved and the sodium level is normal Mild leukocytosis Chronic anemia History of CVA with left-sided hemiplegia. Extensive thoracic spine surgery with instrumentation and spinal fusion. History of gout. Hyperlipidemia. Lifelong non-smoker. group home resident. Plan: Patient was transferred out of the intensive care unit and the patient is currently on the medical floor. The patient continues to alternate between BiPAP on and off during the day and throughout the night and oxygen between 4 and 5 L/min nasal cannula. Patient has chronic respiratory insufficiency. The patient is morbidly obese. The patient has extensive spinal fusion involving the thoracic spine with hardware. In addition, there may be a component of COPD exacerbation/CHF contributing to ongoing hypoxemia. Most recent blood gas shows compensated chronic hypercapnic respiratory failure. Keep the patient on the same setting of BiPAP, overnight and meanwhile the patient is on 4 L of oxygen by nasal cannula Continue Diamox for another 24 hours and repeat serum bicarb level. Obtain follow-up blood gas in a.m. [place] neb regiment [id number] Continue empiric antibiotic coverage with IV Rocephin IV Solu-Medrol 60 mg every 12 hours Echocardiogram was noted and the patient has a preserved LV function Monitor electrolytes Continue Coreg 3.125 mg twice a day Monitor respiratory status Monitor mental status She is a DNR/DNI CODE STATUS Rest of the medication were reviewed. The patient is on aspirin. The patient on Lipitor. Will continue to follow.
--- NOTE | 2024-08-24 00:06 | P.PN ---
Subjective 84-year-old female patient who resides at [facility] on the [place] with previous CVA and left-sided hemiplegia, congestive heart failure, hyperlipidemia, hypertension, lifelong non-smoker who was brought into the emergency room early this morning with shortness of breath and cough. -- Chest x-ray reveals bilateral lower lobe consolidations. -Blood work completed in the ED reveals White count 12.5. Hemoglobin 9.5. Platelets 391. Sodium 127. Potassium 3.6. Bicarb 40. BUN 14. Creatinine 0.38. Troponin 0.042. 0.038. proBNP 5540. - While in the ED patient desaturated and had to be placed on BiPAP; pulmonary consult was placed Patient seen and evaluated sitting up in bed; she is on BiPAP, with settings of 16/8, 60%. She continues on azithromycin and Rocephin. He is much more awake today than she was yesterday. White count was 18.8, hemoglobin 10.3, hematocrit 32.7, platelet count 3 96,000. Sodium 130, potassium 2.4, chlorides 80, CO2 40, BUN 21, creatinine 0.63. Calcium is 9.5. --Pulmonary service on board and recommending to continue with current antibiotic 08/18 Patient mentation improved She still short of breath especially with talking She is not the BiPAP machine overnight Currently she is on oxygen saturating 96% and on 8 L/min At home she said she is just 2 to 4 units Echocardiogram is pending Patient is currently being treated for CHF and pneumonia on ceftriaxone and Zithromax and IV Lasix however her procalcitonin less than 0.20 therefore patient remains on IV Lasix 40 mg twice daily and metolazone 5 mg once daily but also she is on ceftriaxone Zithromax pulmonary pulmonary consult team on the case 08/19 Patient with acute CHF on IV Lasix 4 mg twice daily 100 requiring BiPAP at night. 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 Patient made about 9814-8458 mL urine output yesterday. Patient was transferred to the ICU anticipating she might need pressors. Resumed 2 boluses of normal saline to 50 mL, blood pressure improved and currently 100/69 and higher. Chest x-ray from today showing cardiomegaly and bilateral basal infiltrates, correlate for CHF. I reviewed chest x-ray by myself and agree. Remains on IV Lasix milligram twice daily metolazone 5 mg once daily and ceftriaxone 08/20 Patient remains in the ICU requiring BiPAP overnight and this morning Patient is poor historian because of that and she is sleepy Her breathing is slightly better. She developed hypotensive blood pressure and sent to the ICU. Blood pressure has been stable after she received 2 boluses of 250 mL. Currently kept on Lasix 40 mg twice daily while metolazone was discontinued because of this hypotension Patient also remains on ceftriaxone and Zithromax Echocardiogram is pending 08/21 Patient remains on BiPAP this morning, she is not really getting improved as she feels no chest pain Vitals stable and afebrile WBC 15.3 hemoglobin 10.9 potassium 4.1. Chest x-ray showing persistent left basilar opacity and a new right pleural effusion with adjacent atelectasis versus consolidation from today chest x-ray. Patient remains on ceftriaxone and Zithromax. IV fluid was discontinued and placed on IV Lasix Metolazone was stopped. Patient started on IV Solu-Medrol. Also patient has A-fib new onset by cardiology started on Eliquis 2.5 mg 08/22 Patient remains on BiPAP Today patient was moved of the ICU to the general medical floor Also her IV Lasix was stopped with creatinine went up 1.0 up to 1.2 Also patient received a liter of normal saline and started on IV Solu-Medrol 60 mg Continued on Demadex diuretics. Repeat chest x-ray showing improving low basilar opacity. 08/23 Patient awake Answer all question Little short of breath On 5 L/min of oxygen Objective - Vital Signs Vital signs: Vital Signs Temp 97.2 F L 08/23/24 09:10 Pulse 69 08/23/24 09:10 Resp 14 08/23/24 09:10 BP 126/76 08/23/24 09:10 Pulse Ox 98 08/23/24 09:10 FiO2 50 08/23/24 09:10 Intake & Output 08/22/24 08/23/24 08/23/24 18:59 06:59 18:59 Intake Total 490 Output Total 155 200 Balance 335 -200 Weight 90.8 kg Intake: IV 70 0.9 70 Oral 420 Output: Urine 155 200 Other: Voiding Method Indwelling Catheter Indwelling Catheter Indwelling Catheter - Exam GENERAL: The patient is alert and oriented x3, not in any acute distress. Well developed, well nourished. HEENT: Pupils are round and equally reacting to light. EOMI. No scleral icterus. No conjunctival pallor. Normocephalic, atraumatic. No pharyngeal erythema. No thyromegaly. CARDIOVASCULAR: S1 and S2 present. No murmurs, rubs, or gallops. PULMONARY: Chest is clear to auscultation, no wheezing , bilateral crackles. ABDOMEN: Soft, nontender, nondistended, normoactive bowel sounds. No palpable organomegaly. MUSCULOSKELETAL: No joint swelling or deformity. EXTREMITIES: No cyanosis, clubbing, or pedal edema. NEUROLOGICAL: Gross neurological examination did not reveal any focal deficits. SKIN: No rashes. no petechiae. - Labs CBC & Chem 7: 08/23/24 07:52 08/23/24 07:52 Labs: Abnormal Lab Results - Last 24 Hours (Table) 08/23/24 08/23/24 08/23/24 Range/Units 01:46 07:52 07:52 WBC 13.66 H (4.50-10.00) 10*3/uL RBC 4.07 L (4.10-5.20) 10*6/uL Hgb 11.3 L (12.0-15.0) g/dL MCHC 30.2 L (32.0-37.0) g/dL MPV 9.0 L (9.5-12.2) fL Chloride 94 L (98-107) mmol/L Carbon Dioxide 39 H (22-30) mmol/L BUN 53 H (7-17) mg/dL Creatinine 1.48 H (0.52-1.04) mg/dL Glucose 186 H (74-99) mg/dL POC Glucose (mg/dL) 187 H (70-110) mg/dL Assessment and Plan Assessment: 1. Acute hypoxic respiratory failure; likely multifactorial; related to CHF exacerbation and community-acquired pneumonia - Patient is currently on BiPAP at night time; plan to titrate or wean FiO2 keeping O2 saturation greater than 92% 2. Acute exacerbation CHF most likely diagnosis -Discontinue IV Lasix -Continue with Demadex - 2D echo reviewed - Consult cardiology 3. Acute COPD exacerbation is suspected patient unlikely has pneumonia - Antibiotics discontinued - Patient started on IV Solu-Medrol on 08/21 4. Altered mental status; likely toxic metabolic encephalopathy related to above 5. Hyponatremia; sodium level at 127; we will monitor electrolytes closely 6. Hyperlipidemia; Lipitor 40 mg p.o. nightly; Zetia 10 mg daily 7. History of gout; allopurinol 100 mg daily 8. Hypertension; Coreg 3.125 mg daily 9. New onset A-fib, started with Eliquis, rate controlled. Food Products Tester has no further recommendation DVT prophylaxis; SCDs CODE STATUS; full code
--- NOTE | 2024-08-24 18:58 | P.PN ---
Subjective Progress Note Date: 08/24/24 On 08/18/2024, the patient is being seen for a follow-up. This is a 84-year-old female patient who is currently being seen for CHF and the patient is being treated accordingly. The chest x-ray showed also small bilateral pleural effusions along with cardiomegaly. The patient has extensive instrumentation and spinal fixation involving the thoracic spine. The patient is currently on Coreg 3.125 mg twice a day, Lasix 40 mg IV every 12 hours and Aldactone 25 mg p.o. daily. The patient is also on Zaroxolyn 5 mg p.o. daily. The patient is maintained on oxygen and she is currently on 7 L with a pulse ox of 93%. Blood work from today shows a white cell count of 14.7 with a hemoglobin 9.6 and a platelet count of 413. Sodium is at 133, potassium is at 3.4, BUN is at 26 with a creatinine of 0.9. Serum bicarb is at 38. The patient is also on empiric antibiotic coverage and the patient remains on IV Rocephin. Rest of the medications remain essentially unchanged. Noted, the patient was initially on a BiPAP and the patient is currently off the BiPAP on 7 L of oxygen by nasal cannula. On 08/19/2024, the patient became very intensive care unit. The patient got transferred to the ICU overnight as the patient was found to be more hypoxic and more short of breath and she also had a drop in her blood pressure. She was given a bolus of 500 cc and the patient's blood pressure has normalized. She was on 60s of oxygen by nasal cannula and the patient was transitioned to BiPAP at a pressure of 18 over 8 cm of water with an FiO2 of 60%. For now, the patient is tolerating the BiPAP reasonably well. Her minute ventilation is around 6.8 L/min and the generated tidal volume is 270 cc. The blood gas showed a pH of 7.44 with a PCO2 of 65 and PO2 of 78 and a fluid balance is -929 cc over the past 24 hours. The patient remains on DuoNebtreatment [id number]. The patient remains on IV Solu-Medrol. The diuretics will be placed on hold as the patient has developed alkalosis. The sodium levels at 135, potassium is 3.5, bicarb is at 39 with a chloride of 88. BUN is 30 with a creatinine of 0.7. WBC count 16.9 with a hemoglobin 10.2 and a platelet count of 370. Chest x-ray from this morning shows small bilateral pleural effusion and cardiomegaly. Clinically, the patient is tolerating the BiPAP well. The patient is arousable. No focal neurological deficits. Echocardiogram was ordered and this has not been completed yet. On today's evaluation of 08/20/2024, the patient was taken off the BiPAP. Note that overnight, the patient was kept on a BiPAP pressure of 18 over 8 cm of water and FiO2 of 60%. Currently she is on 6 L of oxygen by nasal cannula. More arousable and communicating. Her breathing is remains quite shallow and the patient was not offered an incentive spirometer. IV fluids are currently at KVO. Fluid balance is -1.1 L. The patient was also noted to be in atrial fibrillation. Meanwhile, the chest x-ray from today is showing left lower lobe atelectasis/collapse and some right basilar airspace disease with possible development of pleural effusions. Based on that, ultrasound of the chest was ordered to evaluate for any pleural effusions. Meanwhile, the patient remains on bronchodilators with DuoNeb nebulized treatments [id number], IV Solu- Medrol 60 mg every 6 hours and the patient is also on Lasix 40 mg IV every 12 hours. Remains on anticoagulation with Eliquis 2.5 mg p.o. twice daily. The white cell count is at 12.1 with a heme of 10.2 and a platelet count of 374. BUN 31 with a creatinine of 1.02. Serum bicarb is at 40 and sodium levels at 136 and a potassium level is at 3.6.The echocardiogram was also completed and the patient was found to have a preserved LV function with a normal ejection fraction of 50%. Mild mitral and tricuspid regurgitation. Right-sided pressures were not adequately measured. On 08/21/2024, the patient is being seen for a follow-up. The patient was taken off the BiPAP yesterday and later on during the day, the patient had to be placed back on the BiPAP. Noted the patient was weaned down to 4 L of oxygen by nasal cannula. This morning, she is back on the BiPAP at a pressure of 18/8 w ith an FiO2 of 80%. The minute ventilation is around 9 L/min and the patient is generating a tidal volume of 300 cc. She is lethargic, sleepy at arousable. The blood gas was done that shows a pH of 7.48 with a ADE265 and PO2 of 68 and this was done on 80% BiPAP. A repeat chest x-ray was done today and shows smaller lung volumes. The patient has a small right-sided pleural effusion and the patient has adjacent right basilar opacity and probably some retrocardiac atelectatic changes. The patient also has hardware at multiple levels involving the thoracic spine prior related to thoracic spine fusion. The patient remains on bronchodilators. The patient remains on steroids. The patient is also on diuretics and the patient is currently receiving Lasix 40 mg IV every 12 hours. The fluid balance is -1.1 L over the past 24 hours. Blood work from today shows a white cell count of 15.3 with a hemoglobin 10.9 and a platelet count of 424. His serum bicarb is 41, sodium is 135, potassium level is 4.1, BUN is 37 and the creatinine is 1.04. On 08/22/2024, the patient is awake and alert. Overnight, the patient spent on BiPAP at a pressure of 18/8 with FiO2 of 60%. Morning blood gas showed a pH of 7.45 with a pCO2 of 59 and a PO217. Chest x-ray is essentially unchanged. This is a limited chest x-ray due to the patient's body habitus and thoracic kyphosis. The patient has trace right-sided pleural effusion and adjacent atelectasis and the patient also has thoracic fusion hardware and multiple levels of vertebroplasty. The patient has some mild cardiomegaly. No airspace disease or consolidation. The patient was taken off the BiPAP and the patient was placed on oxygen and she is currently on oxygen at 4 L/min nasal cannula. She is able to maintain a pulse ox above 90%. Awake and alert and communicating. She is complaining of oral dryness. She is also requesting some food intake. The white cell count is 14.1, hemoglobin is at 10.6 and a platelet count of 341. Sodium is at 135, BUN is 46 and the creatinine is at 1.2. Fluid balance is in the order of -330 cc over the past 24 hours. The patient remains on diuretics with IV Lasix. Remains on bronchodilators. Remains on steroids. Remains on Diamox. Cultures involving blood culture was negative. On today's evaluation of 08/23/2024, the patient is being seen for a follow-up. The patient remains on a BiPAP at a pressure of 18/8 with an FiO2 of 50%. She spent the whole night on the BiPAP and currently she will be transitioned to oxygen by nasal cannula at 5 L. Arousable, denies having any specific co mplaints. White cell count of 15.6 with a hemoglobin 11.3 and a platelet count of 310. BUN is 53 and the creatinine is 1.48 and the sodium is at 137. Remains on DuoNeb updrafts. The patient is also on IV Solu-Medrol 60 mg every 12 hours. Remains on anticoagulation with Eliquis 2.5 mg twice a day. Remains on a combination of Perforomist and Pulmicort nebulized unit twice a day. Will be off of the diet. No focal neurological deficits. Rest of the medications are essentially unchanged. On today's evaluation of 2024, the patient is still alternating between BiPAP at a pressure of 18/8 with an FiO2 of 50% and oxygen at 5 L nasal cannula. Doing well. She has chronic hypoxic and hypercapnic respiratory failure. No signs of any CO2 narcosis. No chest pain. No other new complaints otherwise for now. No recent blood work from today. Most recent chest x-rays from 08/22/2024. She is chronically debilitated. She remains on Diamox 5 mg IV every 12 hours. She remains anticoagulated with Eliquis. She is on DuoNeb nebulized treatments and Pulmicort nebulized treatments twice a day and Perforomist. She is also on IV Solu-Medrol 60 mg every 12 hours. She is tolerating diet. Moving all 4 extremities. No signs of any focal neurological deficits. She is a DNR/DNI CODE STATUS. Objective - Vital Signs Vital signs: Vital Signs Temp 97.4 F L 08/23/24 23:08 Pulse 88 08/24/24 11:37 Resp 16 08/24/24 02:00 BP 103/68 08/23/24 23:08 Pulse Ox 97 08/24/24 11:25 FiO2 50 08/24/24 06:12 Intake & Output 08/23/24 08/24/24 08/24/24 18:59 06:59 18:59 Intake Total 50 210 Output Total 250 400 Balance 50 -250 -190 Weight 90 kg Intake: Oral 50 210 Output: Urine 250 400 Other: Voiding Method Indwelling Catheter Indwelling Catheter - Exam No significant respiratory distress at rest, currently off BiPAP and transition to oxygen at 5 L/min nasal cannula. Awake and alert and communicating. HEENT examination is grossly unremarkable. Mucous membranes are moist. No oral lesions. Neck supple. Full range of motion. No adenopathy thyromegaly or neck vein distention. Cardiovascular examination reveals regular rhythm rate. S1-S2 normal. No S3 or S4. No discernible murmur noted. Lungs reveal scattered rhonchi. No wheezes. Basilar crackles are noted. Breath sounds are equal. The breath sounds are still marked diminished bilaterally. Abdomen soft bowel sounds are heard. No masses or tenderness. Extremities are intact. No significant lower extremity edema on today's evaluation and the pitting edema is improved. Skin is without rash or lesion. Neurologic examination is brief but nonfocal. The patient is able to move all 4 extremities without any limitation. - Labs CBC & Chem 7: 08/23/24 07:52 08/23/24 07:52 Assessment and Plan Plan: Acute hypoxic respiratory failure most likely related to COPD, chronic restrictive lung disease related to obesity and a component of CHF with bilateral pleural effusion. Pneumonia is possible although felt to be less likely at this stage. Echocardiogram was completed and the patient has a preserved LV function. Chest x-ray continues to show atelectatic changes lung bases. There is an obvious left lower lobe collapse and there is also atelectatic changes right lung base. The patient became more short of breath and hypoxic and the patient had to be placed on a BiPAP at a pressure of 18 over 8 cm of water and FiO2 of 60% and the patient is currently transition to 5 L of O2 nasal cannula. Overall condition is stable and the patient continues to alte rnate between a BiPAP and oxygen 5 L/min nasal cannula. Still on bronchodilators. Still on steroids. Maintained on Diamox. Altered mental status secondary to above, improved while on the BiPAP, currently on 5 L of oxygen nasal cannula Preserved LV function with an ejection fraction of 60 to 65% Hyponatremia, improved and the sodium level is normal Mild leukocytosis Chronic anemia History of CVA with left-sided hemiplegia. Extensive thoracic spine surgery with instrumentation and spinal fusion. History of gout. Hyperlipidemia. Lifelong non-smoker. [facility] resident. Plan: Patient was transferred out of the intensive care unit and the patient is currently on the medical floor. The patient continues to alternate between BiPAP on and off during the day and throughout the night and oxygen between 4 and 5 L/min nasal cannula. Patient has chronic respiratory insufficiency. The patient is morbidly obese. The patient has extensive spinal fusion involving the thoracic spine with hardware. In addition, there may be a component of COPD exacerbation/CHF contributing to ongoing hypoxemia. Most recent blood gas shows compensated chronic hypercapnic respiratory failure. Keep the patient on the same setting of BiPAP, overnight and meanwhile the patient is on 4 L of oxygen by nasal cannula Continue Diamox for another 24 hours and repeat serum bicarb level. Obtain follow-up blood gas in a.m. Lolis esqueda regiment [id number] Continue empiric antibiotic coverage with IV Rocephin IV Solu-Medrol 60 mg every 12 hours Echocardiogram was noted and the patient has a preserved LV function Monitor electrolytes Continue Coreg 3.125 mg twice a day Monitor respiratory status Monitor mental status She is a DNR/DNI CODE STATUS Rest of the medication were reviewed. The patient is on aspirin. The patient on Lipitor. Will continue to follow.
--- NOTE | 2024-08-25 07:06 | P.PN ---
Subjective 84-year-old female patient who resides at [facility] [place] with previous CVA and left-sided hemiplegia, congestive heart failure, hyperlipidemia, hypertension, lifelong non-smoker who was brought into the emergency room early this morning with shortness of breath and cough. -- Chest x-ray reveals bilateral lower lobe consolidations. -Blood work completed in the ED reveals White count 12.5. Hemoglobin 9.5. Platelets 391. Sodium 127. Potassium 3.6. Bicarb 40. BUN 14. Creatinine 0.38. Troponin 0.042. 0.038. proBNP 5540. - While in the ED patient desaturated and had to be placed on BiPAP; pulmonary consult was placed Patient seen and evaluated sitting up in bed; she is on BiPAP, with settings of 16/8, 60%. She continues on azithromycin and Rocephin. He is much more awake today than she was yesterday. White count was 18.8, hemoglobin 10.3, hematocrit 32.7, platelet count 3 96,000. Sodium 130, potassium 2.4, chlorides 80, CO2 40, BUN 21, creatinine 0.63. Calcium is 9.5. --Pulmonary service on board and recommending to continue with current antibiotic 08/18 Patient mentation improved She still short of breath especially with talking She is not the BiPAP machine overnight Currently she is on oxygen saturating 96% and on 8 L/min At home she said she is just 2 to 4 units Echocardiogram is pending Patient is currently being treated for CHF and pneumonia on ceftriaxone and Zithromax and IV Lasix however her procalcitonin less than 0.20 therefore patient remains on IV Lasix 40 mg twice daily and metolazone 5 mg once daily but also she is on ceftriaxone Zithromax pulmonary pulmonary consult team on the case 08/19 Patient with acute CHF on IV Lasix 4 mg twice daily 100 requiring BiPAP at night. Became hypotensive action installer around 630, blood pressure was 80s/30s, she was transferred to the ICU on his presentation but needs mechanical ventilation however patient reports no chest pain no other new complaints. Patient made about [id number] mL urine output yesterday. Patient was transferred to the ICU anticipating she might need pressors. Resumed 2 boluses of normal saline to 50 mL, blood pressure improved and currently 100/69 and higher. Chest x-ray from today showing cardiomegaly and bilateral basal infiltrates, correlate for CHF. I reviewed chest x-ray by myself and agree. Remains on IV Lasix milligram twice daily metolazone 5 mg once daily and ceftriaxone 08/20 Patient remains in the ICU requiring BiPAP overnight and this morning Patient is poor historian because of that and she is sleepy Her breathing is slightly better. She developed hypotensive blood pressure and sent to the ICU. Blood pressure has been stable after she received 2 boluses of 250 mL. Currently kept on Lasix 40 mg twice daily while metolazone was discontinued because of this hypotension Patient also remains on ceftriaxone and Zithromax Echocardiogram is pending 08/21 Patient remains on BiPAP this morning, she is not really getting improved as she feels no chest pain Vitals stable and afebrile WBC 15.3 hemoglobin 10.9 potassium 4.1. Chest x-ray showing persistent left basilar opacity and a new right pleural effusion with adjacent atelectasis versus consolidation from today chest x-ray. Patient remains on ceftriaxone and Zithromax. IV fluid was discontinued and placed on IV Lasix Metolazone was stopped. Patient started on IV Solu-Medrol. Also patient has A-fib new onset by cardiology started on Eliquis 2.5 mg 08/22 Patient remains on BiPAP Today patient was moved of the ICU to the general medical floor Also her IV Lasix was stopped with creatinine went up 1.0 up to 1.2 Also patient received a liter of normal saline and started on IV Solu-Medrol 60 mg Continued on Demadex diuretics. Repeat chest x-ray showing improving low basilar opacity. 08/23 Patient awake Answer all question Little short of breath On 5 L/min of oxygen 08/24 Patient very weak and lethargic She remains on 5 L oxygen via nasal cannula, BiPAP at bedside for overnight She still with fluid overload On Lasix and Demadex Also she is on IV Solu-Medrol and Eliquis Objective - Vital Signs Vital signs: Vital Signs Temp 97.4 F L 08/23/24 23:08 Pulse 82 08/24/24 06:32 Resp 16 08/24/24 02:00 BP 103/68 08/23/24 23:08 Pulse Ox 97 08/23/24 23:08 FiO2 50 08/24/24 06:12 Intake & Output 06/08/24/24 08/24/24 18:59 06:59 18:59 Intake Total 50 210 Output Total 250 400 Balance 50 -250 -190 Weight 90 kg Intake: Oral 50 210 Output: Urine 250 400 Other: Voiding Method Indwelling Catheter Indwelling Catheter - Exam GENERAL: The patient is alert and oriented x3, not in any acute distress. Well developed, well nourished. HEENT: Pupils are round and equally reacting to light. EOMI. No scleral icterus. No conjunctival pallor. Normocephalic, atraumatic. No pharyngeal erythema. No thyromegaly. CARDIOVASCULAR: S1 and S2 present. No murmurs, rubs, or gallops. PULMONARY: Chest is clear to auscultation, no wheezing , bilateral crackles. ABDOMEN: Soft, nontender, nondistended, normoactive bowel sounds. No palpable organomegaly. MUSCULOSKELETAL: No joint swelling or deformity. EXTREMITIES: No cyanosis, clubbing, or pedal edema. NEUROLOGICAL: Gross neurological examination did not reveal any focal deficits. SKIN: No rashes. no petechiae. - Labs CBC & Chem 7: 08/23/24 07:52 08/23/24 07:52 Assessment and Plan Assessment: 1. Acute hypoxic respiratory failure; likely multifactorial; related to CHF exacerbation and community-acquired pneumonia - Patient is currently on BiPAP at night time; plan to titrate or wean FiO2 keeping O2 saturation greater than 92% 2. Acute exacerbation CHF most likely diagnosis -Discontinue IV Lasix -Continue with Demadex - 2D echo reviewed - Consult cardiology 3. Acute COPD exacerbation is suspected patient unlikely has pneumonia - Antibiotics discontinued - Patient started on IV Solu-Medrol on 08/21 4. Altered mental status; likely toxic metabolic encephalopathy related to above 5. Hyponatremia; sodium level at 127; we will monitor electrolytes closely 6. Hyperlipidemia; Lipitor 40 mg p.o. nightly; Zetia 10 mg daily 7. History of gout; allopurinol 100 mg daily 8. Hypertension; Coreg 3.125 mg daily 9. New onset A-fib, started with Eliquis, rate controlled. Advertising Coordinator has no further recommendation DVT prophylaxis; SCDs CODE STATUS; full code
--- NOTE | 2024-08-25 07:10 | XR ---
EXAMINATION TYPE: XR chest 1V DATE OF EXAM: 08/25/2024 6:44 AM COMPARISON: Chest radiographs from 08/22/2024 CLINICAL INDICATION: Female, 84 years old with history of chf; [facility] TECHNIQUE: XR chest 1V Frontal view of the chest. FINDINGS: Lungs/Pleura: No evidence of focal consolidation or pneumothorax. Blunting of the costophrenic angles is present. Pulmonary vascularity: Unremarkable. Heart/mediastinum: Cardiomediastinal silhouette is unremarkable. Musculoskeletal: No acute osseous pathology. There is spine fixation hardware is present. The right humeral head does appear to be in appropriate position. IMPRESSION: 1. Cardiomegaly, pulmonary vascular congestion and bilateral pleural effusions. Correlate with BNP f or congestive heart failure. 2. Anterior right shoulder dislocation suggested. Correlate clinically. [facility], , 08/25/2024 7:07 AM
--- NOTE | 2024-08-25 18:03 | P.PN ---
Subjective Progress Note Date: 08/25/24 On 08/18/2024, the patient is being seen for a follow-up. This is a 84-year-old female patient who is currently being seen for CHF and the patient is being treated accordingly. The chest x-ray showed also small bilateral pleural effusions along with cardiomegaly. The patient has extensive instrumentation and spinal fixation involving the thoracic spine. The patient is currently on Coreg 3.125 mg twice a day, Lasix 40 mg IV every 12 hours and Aldactone 25 mg p.o. daily. The patient is also on Zaroxolyn 5 mg p.o. daily. The patient is maintained on oxygen and she is currently on 7 L with a pulse ox of 93%. Blood work from today shows a white cell count of 14.7 with a hemoglobin 9.6 and a platelet count of 413. Sodium is at 133, potassium is at 3.4, BUN is at 26 with a creatinine of 0.9. Serum bicarb is at 38. The patient is also on empiric antibiotic coverage and the patient remains on IV Rocephin. Rest of the medications remain essentially unchanged. Noted, the patient was initially on a BiPAP and the patient is currently off the BiPAP on 7 L of oxygen by nasal cannula. On 08/19/2024, the patient became very intensive care unit. The patient got transferred to the ICU overnight as the patient was found to be more hypoxic and more short of breath and she also had a drop in her blood pressure. She was given a bolus of 500 cc and the patient's blood pressure has normalized. She was on 60s of oxygen by nasal cannula and the patient was transitioned to BiPAP at a pressure of 18 over 8 cm of water with an FiO2 of 60%. For now, the patient is tolerating the BiPAP reasonably well. Her minute ventilation is around 6.8 L/min and the generated tidal volume is 270 cc. The blood gas showed a pH of 7.44 with a PCO2 of 65 and PO2 of 78 and a fluid balance is -929 cc over the past 24 hours. The patient remains on DuoNebtreatment [id number]. The patient remains on IV Solu-Medrol. The diuretics will be placed on hold as the patient has developed alkalosis. The sodium levels at 135, potassium is 3.5, bicarb is at 39 with a chloride of 88. BUN is 30 with a creatinine of 0.7. WBC count 16.9 with a hemoglobin 10.2 and a platelet count of 370. Chest x-ray from this morning shows small bilateral pleural effusion and cardiomegaly. Clinically, the patient is tolerating the BiPAP well. The patient is arousable. No focal neurological deficits. Echocardiogram was ordered and this has not been completed yet. On today's evaluation of 08/20/2024, the patient was taken off the BiPAP. Note that overnight, the patient was kept on a BiPAP pressure of 18 over 8 cm of water and FiO2 of 60%. Currently she is on 6 L of oxygen by nasal cannula. More arousable and communicating. Her breathing is remains quite shallow and the patient was not offered an incentive spirometer. IV fluids are currently at KVO. Fluid balance is -1.1 L. The patient was also noted to be in atrial fibrillation. Meanwhile, the chest x-ray from today is showing left lower lobe atelectasis/collapse and some right basilar airspace disease with possible development of pleural effusions. Based on that, ultrasound of the chest was ordered to evaluate for any pleural effusions. Meanwhile, the patient remains on bronchodilators with DuoNeb nebulized treatments [id number], IV Solu- Medrol 60 mg every 6 hours and the patient is also on Lasix 40 mg IV every 12 hours. Remains on anticoagulation with Eliquis 2.5 mg p.o. twice daily. The white cell count is at 12.1 with a heme of 10.2 and a platelet count of 374. BUN 31 with a creatinine of 1.02. Serum bicarb is at 40 and sodium levels at 136 and a potassium level is at 3.6.The echocardiogram was also completed and the patient was found to have a preserved LV function with a normal ejection fraction of 50%. Mild mitral and tricuspid regurgitation. Right-sided pressures were not adequately measured. On 08/21/2024, the patient is being seen for a follow-up. The patient was taken off the BiPAP yesterday and later on during the day, the patient had to be placed back on the BiPAP. Noted the patient was weaned down to 4 L of oxygen by nasal cannula. This morning, she is back on the BiPAP at a pressure of 18/8 w ith an FiO2 of 80%. The minute ventilation is around 9 L/min and the patient is generating a tidal volume of 300 cc. She is lethargic, sleepy at arousable. The blood gas was done that shows a pH of 7.48 with a [id number] and PO2 of 68 and this was done on 80% BiPAP. A repeat chest x-ray was done today and shows smaller lung volumes. The patient has a small right-sided pleural effusion and the patient has adjacent right basilar opacity and probably some retrocardiac atelectatic changes. The patient also has hardware at multiple levels involving the thoracic spine prior related to thoracic spine fusion. The patient remains on bronchodilators. The patient remains on steroids. The patient is also on diuretics and the patient is currently receiving Lasix 40 mg IV every 12 hours. The fluid balance is -1.1 L over the past 24 hours. Blood work from today shows a white cell count of 15.3 with a hemoglobin 10.9 and a platelet count of 424. His serum bicarb is 41, sodium is 135, potassium level is 4.1, BUN is 37 and the creatinine is 1.04. On 08/22/2024, the patient is awake and alert. Overnight, the patient spent on BiPAP at a pressure of 18/8 with FiO2 of 60%. Morning blood gas showed a pH of 7.45 with a pCO2 of 59 and a PO217. Chest x-ray is essentially unchanged. This is a limited chest x-ray due to the patient's body habitus and thoracic kyphosis. The patient has trace right-sided pleural effusion and adjacent atelectasis and the patient also has thoracic fusion hardware and multiple levels of vertebroplasty. The patient has some mild cardiomegaly. No airspace disease or consolidation. The patient was taken off the BiPAP and the patient was placed on oxygen and she is currently on oxygen at 4 L/min nasal cannula. She is able to maintain a pulse ox above 90%. Awake and alert and communicating. She is complaining of oral dryness. She is also requesting some food intake. The white cell count is 14.1, hemoglobin is at 10.6 and a platelet count of 341. Sodium is at 135, BUN is 46 and the creatinine is at 1.2. Fluid balance is in the order of -330 cc over the past 24 hours. The patient remains on diuretics with IV Lasix. Remains on bronchodilators. Remains on steroids. Remains on Diamox. Cultures involving blood culture was negative. On today's evaluation of 08/23/2024, the patient is being seen for a follow-up. The patient remains on a BiPAP at a pressure of 18/8 with an FiO2 of 50%. She spent the whole night on the BiPAP and currently she will be transitioned to oxygen by nasal cannula at 5 L. Arousable, denies having any specific co mplaints. White cell count of 15.6 with a hemoglobin 11.3 and a platelet count of 310. BUN is 53 and the creatinine is 1.48 and the sodium is at 137. Remains on DuoNeb updrafts. The patient is also on IV Solu-Medrol 60 mg every 12 hours. Remains on anticoagulation with Eliquis 2.5 mg twice a day. Remains on a combination of Perforomist and Pulmicort nebulized unit twice a day. Will be off of the diet. No focal neurological deficits. Rest of the medications are essentially unchanged. On today's evaluation of 2024, the patient is still alternating between BiPAP at a pressure of 18/8 with an FiO2 of 50% and oxygen at 5 L nasal cannula. Doing well. She has chronic hypoxic and hypercapnic respiratory failure. No signs of any CO2 narcosis. No chest pain. No other new complaints otherwise for now. No recent blood work from today. Most recent chest x-rays from 08/22/2024. She is chronically debilitated. She remains on Diamox 5 mg IV every 12 hours. She remains anticoagulated with Eliquis. She is on DuoNeb nebulized treatments and Pulmicort nebulized treatments twice a day and Perforomist. She is also on IV Solu-Medrol 60 mg every 12 hours. She is tolerating diet. Moving all 4 extremities. No signs of any focal neurological deficits. She is a DNR/DNI CODE STATUS. The patient is seen today August 25, 2024 in follow-up on the selective care unit. She is awake and alert in no acute distress. Maintaining O2 saturations in the high 90s on 5 L high flow nasal cannula. She is afebrile. Hemodynamically stable. Chest x-ray continues to reveal cardiomegaly, pulmonary vascular congestion and bilateral pleural effusions. Blood culture revealed no growth. No new labs today. She remains on DuoNeb inhalations, Pulmicort inhalations, IV Solu-Medrol. Normal saline at 20 mL/h. Anticoagulated with Eliquis. Remains on Diamox. Objective - Vital Signs Vital signs: Vital Signs Temp 97.8 F 08/25/24 08:45 Pulse 93 08/25/24 12:30 Resp 18 08/25/24 12:30 BP 115/75 08/25/24 12:30 Pulse Ox 98 08/25/24 12:30 FiO2 50 08/25/24 05:10 Intake & Output 08/24/24 08/25/24 08/25/24 18:59 06:59 18:59 Intake Total 410 268 Output Total 400 750 Balance 10 -750 268 Weight 90 kg Intake: Oral 410 268 Output: Urine 400 750 Other: Voiding Method Indwelling Catheter Indwelling Catheter Indwelling Catheter - Exam GENERAL EXAM: Alert, 84-year-old female, on 5 L high flow nasal cannula, fairly comfortable in no apparent distress. HEAD: Normocephalic. EYES: Normal reaction of pupils, equal size. NOSE: Clear with pink turbinates. THROAT: No erythema or exudates. NECK: No masses, no JVD. CHEST: No chest wall deformity. LUNGS: Equal air entry with bibasilar crackles. CVS: S1 and S2 normal with no audible murmur, regular rhythm. ABDOMEN: No hepatosplenomegaly, normal bowel sounds, no guarding or rigidity. SPINE: No scoliosis or deformity SKIN: No rashes CENTRAL NERVOUS SYSTEM: No focal deficits, tone is normal in all 4 extremities. EXTREMITIES: There is 1+ peripheral edema. No clubbing, no cyanosis. Peripheral pulses are intact. - Labs CBC & Chem 7: 08/23/24 07:52 08/23/24 07:52 Assessment and Plan Assessment: Acute hypoxic respiratory failure most likely related to COPD, chronic restrictive lung disease related to obesity and a component of CHF with bilateral pleural effusion. Pneumonia is possible although felt to be less likely at this stage. Echocardiogram was completed and the patient has a p reserved LV function. Chest x-ray continues to show atelectatic changes lung bases. There is an obvious left lower lobe collapse and there is also atelectatic changes right lung base. The patient became more short of breath and hypoxic and the patient had to be placed on a BiPAP at a pressure of 18 over 8 cm of water and FiO2 of 60% and the patient is currently transitioned to 5 L of O2 nasal cannula. Overall condition is stable and the patient continues to alternate between a BiPAP and oxygen 5 L/min nasal cannula. Still on bronchodilators. Still on steroids. Maintained on Diamox. Altered mental status secondary to above Hyponatremia Mild leukocytosis Mild anemia History of congestive heart failure History of CVA with left-sided hemiplegia History of gout Hyperlipidemia Lifelong non-smoker group home resident Plan: The patient was seen and evaluated Chest x-ray and medications reviewed Currently on 5 L nasal cannula Titrate down the FiO2 as tolerated Continue IV Diamox Continue bronchodilators Follow-up labs in a.m. We will continue to follow I have personally seen and examined the patient, performed the documentation and the assessment and plan as written. Number of minutes spent on the visit: 10 Dictation was produced using [employer] dictation software. Please excuse any grammatical, word or spelling errors.
--- NOTE | 2024-08-26 02:02 | PN ---
PROGRESS NOTE DATE OF SERVICE: 08/25/2024 SUBJECTIVE: This is an 84-year-old woman who was admitted with acute respiratory failure, possibly multifactorial including CHF and COPD, still mildly confused. The patient is closely monitored. The patient multiple consultants are following the patient closely. PAST MEDICAL HISTORY: Reviewed. CURRENT MEDICATIONS: Reviewed. PHYSICAL EXAMINATION: VITAL SIGNS: Pulse is 88, blood pressure 156/70, respirations 24. HEENT: Conjunctivae normal. NECK: No jugular venous distention. CARDIOVASCULAR: S1, S2 ABDOMEN: Soft. NERVOUS SYSTEM: Diffusely weak. LABORATORY DATA: WBC 13.66, creatinine 1.48. ASSESSMENT: 1. Shortness of breath, possibly multifactorial, congestive heart failure, and chronic obstructive pulmonary disease acute exacerbation. 2. Change in mental status, metabolic encephalopathy. 3. Acute hypoxic respiratory failure. 4. Hyponatremia. 5. Hyperlipidemia. 6. History of gout. 7. Hypertension. 8. New onset atrial fibrillation. RECOMMENDATIONS AND DISCUSSION: I recommend to continue current management and continue symptomatic treatment patient is not on diuretics at this time, but however I would recommend continue with intensive bronchodilator treatment. PT, OT evaluation, IV steroids, which is being tapered. We will repeat labs, PT and OT evaluation. Guarded prognosis. Further recommendations to follow. MMODL / IJN: [id number] / MICHELE
[2024-08-26 07:59] LABS: Basophils # (A) 0.09 10*3/uL (0.00-0.10); Basophils % (A) 0.5 %; Eosinophils # (A) 0.00 10*3/uL (0.04-0.35); Eosinophils % (A) 0.0 %; HCT 36.8 % (37.2-46.3); HGB 11.0 g/dL (12.0-15.0); Lymphocytes # (A) 0.50 10*3/uL (0.90-5.00); Lymphocytes % (A) 2.5 %; MCH 28.1 pg (27.0-32.0); MCHC 29.9 g/dL (32.0-37.0); MCV 94.1 fL (80.0-97.0); Monocytes # (A) 0.36 10*3/uL (0.20-1.00); Monocytes % (A) 1.8 %; Neutrophils # (A) 17.65 10*3/uL (1.80-7.70); Neutrophils % (A) 88.4 %; Platelet Count 235 10*3/uL (140-440); RBC 3.91 10*6/uL (4.10-5.20); RDW 15.8 % (11.5-14.5); WBC 19.96 10*3/uL (4.50-10.00)
[2024-08-26 08:06] LABS: African American GFR (CKD) 48 (>60 ml/min/1.73 sqM); Anion Gap 9 mmol/L; Blood Urea Nitrogen 57 mg/dL (7-17); Calcium 9.9 mg/dL (8.4-10.2); Carbon Dioxide 31 mmol/L (22-30); Chloride 105 mmol/L (98-107); Glucose 189 mg/dL (74-99); Non-African American GFR(CKD) 42 (>60 ml/min/1.73 sqM); Potassium 3.1 mmol/L (3.5-5.1); Sodium 145 mmol/L (137-145)
[2024-08-26] MEDS ORDERED: Potassium Replacement Protocol 1 EACH MISC MISCELLANE PRN (11:55)
[2024-08-26] MEDS: POTASSIUM CHLORIDE ER 20 MEQ TAB.ER PO SCH (12:01)
--- NOTE | 2024-08-26 12:51 | P.PN ---
Subjective Progress Note Date: 08/26/24 On 08/18/2024, the patient is being seen for a follow-up. This is a 84-year-old female patient who is currently being seen for CHF and the patient is being treated accordingly. The chest x-ray showed also small bilateral pleural effusions along with cardiomegaly. The patient has extensive instrumentation and spinal fixation involving the thoracic spine. The patient is currently on Coreg 3.125 mg twice a day, Lasix 40 mg IV every 12 hours and Aldactone 25 mg p.o. daily. The patient is also on Zaroxolyn 5 mg p.o. daily. The patient is maintained on oxygen and she is currently on 7 L with a pulse ox of 93%. Blood work from today shows a white cell count of 14.7 with a hemoglobin 9.6 and a platelet count of 413. Sodium is at 133, potassium is at 3.4, BUN is at 26 with a creatinine of 0.9. Serum bicarb is at 38. The patient is also on empiric antibiotic coverage and the patient remains on IV Rocephin. Rest of the medications remain essentially unchanged. Noted, the patient was initially on a BiPAP and the patient is currently off the BiPAP on 7 L of oxygen by nasal cannula. On 08/19/2024, the patient became very intensive care unit. The patient got transferred to the ICU overnight as the patient was found to be more hypoxic and more short of breath and she also had a drop in her blood pressure. She was given a bolus of 500 cc and the patient's blood pressure has normalized. She was on 60s of oxygen by nasal cannula and the patient was transitioned to BiPAP at a pressure of 18 over 8 cm of water with an FiO2 of 60%. For now, the patient is tolerating the BiPAP reasonably well. Her minute ventilation is around 6.8 L/min and the generated tidal volume is 270 cc. The blood gas showed a pH of 7.44 with a PCO2 of 65 and PO2 of 78 and a fluid balance is -929 cc over the past 24 hours. The patient remains on DuoNebtreatment [id number]. The patient remains on IV Solu-Medrol. The diuretics will be placed on hold as the patient has developed alkalosis. The sodium levels at 135, potassium is 3.5, bicarb is at 39 with a chloride of 88. BUN is 30 with a creatinine of 0.7. WBC count 16.9 with a hemoglobin 10.2 and a platelet count of 370. Chest x-ray from this morning shows small bilateral pleural effusion and cardiomegaly. Clinically, the patient is tolerating the BiPAP well. The patient is arousable. No focal neurological deficits. Echocardiogram was ordered and this has not been completed yet. On today's evaluation of 08/20/2024, the patient was taken off the BiPAP. Note that overnight, the patient was kept on a BiPAP pressure of 18 over 8 cm of water and FiO2 of 60%. Currently she is on 6 L of oxygen by nasal cannula. More arousable and communicating. Her breathing is remains quite shallow and the patient was not offered an incentive spirometer. IV fluids are currently at KVO. Fluid balance is -1.1 L. The patient was also noted to be in atrial fibrillation. Meanwhile, the chest x-ray from today is showing left lower lobe atelectasis/collapse and some right basilar airspace disease with possible development of pleural effusions. Based on that, ultrasound of the chest was ordered to evaluate for any pleural effusions. Meanwhile, the patient remains on bronchodilators with DuoNeb nebulized treatments [id number], IV Solu- Medrol 60 mg every 6 hours and the patient is also on Lasix 40 mg IV every 12 hours. Remains on anticoagulation with Eliquis 2.5 mg p.o. twice daily. The white cell count is at 12.1 with a heme of 10.2 and a platelet count of 374. BUN 31 with a creatinine of 1.02. Serum bicarb is at 40 and sodium levels at 136 and a potassium level is at 3.6.The echocardiogram was also completed and the patient was found to have a preserved LV function with a normal ejection fraction of 50%. Mild mitral and tricuspid regurgitation. Right-sided pressures were not adequately measured. On 08/21/2024, the patient is being seen for a follow-up. The patient was taken off the BiPAP yesterday and later on during the day, the patient had to be placed back on the BiPAP. Noted the patient was weaned down to 4 L of oxygen by nasal cannula. This morning, she is back on the BiPAP at a pressure of 18/8 w ith an FiO2 of 80%. The minute ventilation is around 9 L/min and the patient is generating a tidal volume of 300 cc. She is lethargic, sleepy at arousable. The blood gas was done that shows a pH of 7.48 with a PGK577 and PO2 of 68 and this was done on 80% BiPAP. A repeat chest x-ray was done today and shows smaller lung volumes. The patient has a small right-sided pleural effusion and the patient has adjacent right basilar opacity and probably some retrocardiac atelectatic changes. The patient also has hardware at multiple levels involving the thoracic spine prior related to thoracic spine fusion. The patient remains on bronchodilators. The patient remains on steroids. The patient is also on diuretics and the patient is currently receiving Lasix 40 mg IV every 12 hours. The fluid balance is -1.1 L over the past 24 hours. Blood work from today shows a white cell count of 15.3 with a hemoglobin 10.9 and a platelet count of 424. His serum bicarb is 41, sodium is 135, potassium level is 4.1, BUN is 37 and the creatinine is 1.04. On 08/22/2024, the patient is awake and alert. Overnight, the patient spent on BiPAP at a pressure of 18/8 with FiO2 of 60%. Morning blood gas showed a pH of 7.45 with a pCO2 of 59 and a PO217. Chest x-ray is essentially unchanged. This is a limited chest x-ray due to the patient's body habitus and thoracic kyphosis. The patient has trace right-sided pleural effusion and adjacent atelectasis and the patient also has thoracic fusion hardware and multiple levels of vertebroplasty. The patient has some mild cardiomegaly. No airspace disease or consolidation. The patient was taken off the BiPAP and the patient was placed on oxygen and she is currently on oxygen at 4 L/min nasal cannula. She is able to maintain a pulse ox above 90%. Awake and alert and communicating. She is complaining of oral dryness. She is also requesting some food intake. The white cell count is 14.1, hemoglobin is at 10.6 and a platelet count of 341. Sodium is at 135, BUN is 46 and the creatinine is at 1.2. Fluid balance is in the order of -330 cc over the past 24 hours. The patient remains on diuretics with IV Lasix. Remains on bronchodilators. Remains on steroids. Remains on Diamox. Cultures involving blood culture was negative. On today's evaluation of 08/23/2024, the patient is being seen for a follow-up. The patient remains on a BiPAP at a pressure of 18/8 with an FiO2 of 50%. She spent the whole night on the BiPAP and currently she will be transitioned to oxygen by nasal cannula at 5 L. Arousable, denies having any specific co mplaints. White cell count of 15.6 with a hemoglobin 11.3 and a platelet count of 310. BUN is 53 and the creatinine is 1.48 and the sodium is at 137. Remains on DuoNeb updrafts. The patient is also on IV Solu-Medrol 60 mg every 12 hours. Remains on anticoagulation with Eliquis 2.5 mg twice a day. Remains on a combination of Perforomist and Pulmicort nebulized unit twice a day. Will be off of the diet. No focal neurological deficits. Rest of the medications are essentially unchanged. On today's evaluation of 2024, the patient is still alternating between BiPAP at a pressure of 18/8 with an FiO2 of 50% and oxygen at 5 L nasal cannula. Doing well. She has chronic hypoxic and hypercapnic respiratory failure. No signs of any CO2 narcosis. No chest pain. No other new complaints otherwise for now. No recent blood work from today. Most recent chest x-rays from 08/22/2024. She is chronically debilitated. She remains on Diamox 5 mg IV every 12 hours. She remains anticoagulated with Eliquis. She is on DuoNeb nebulized treatments and Pulmicort nebulized treatments twice a day and Perforomist. She is also on IV Solu-Medrol 60 mg every 12 hours. She is tolerating diet. Moving all 4 extremities. No signs of any focal neurological deficits. She is a DNR/DNI CODE STATUS. The patient is seen today August 25, 2024 in follow-up on the selective care unit. She is awake and alert in no acute distress. Maintaining O2 saturations in the high 90s on 5 L high flow nasal cannula. She is afebrile. Hemodynamically stable. Chest x-ray continues to reveal cardiomegaly, pulmonary vascular congestion and bilateral pleural effusions. Blood culture revealed no growth. No new labs today. She remains on DuoNeb inhalations, Pulmicort inhalations, IV Solu-Medrol. Normal saline at 20 mL/h. Anticoagulated with Eliquis. Remains on Diamox. The patient is seen today August 26, 2024 in follow-up on the selective care unit. She is currently sitting up in bed. Awake and alert. Maintaining O2 saturations in the upper 90s on 5 L high flow nasal cannula. She has been afebr ile. Hemodynamically stable. White count 19.9. Hemoglobin 11.0. Platelets 235. Sodium 145. Potassium 3.1. Bicarb 31. BUN 57. Creatinine 1.21. Glucose 189. She remains on DuoNeb inhalations. Continued on Solu-Medrol. Anticoagulated with Eliquis. Remains on Diamox. Objective - Vital Signs Vital signs: Vital Signs Temp 96.9 F L 08/26/24 11:51 Pulse 63 08/26/24 11:51 Resp 16 08/26/24 11:51 BP 129/54 08/26/24 11:51 Pulse Ox 98 08/26/24 11:51 FiO2 50 08/26/24 05:41 Intake & Output 08/25/24 08/26/24 08/26/24 18:59 06:59 18:59 Intake Total 268 118 Balance 268 118 Weight 90.5 kg Intake: Oral 268 118 Other: Voiding Method Indwelling Catheter Indwelling Catheter - Exam GENERAL EXAM: Alert, 84-year-old female, sitting up in bed, on 5 L high flow nasal cannula, comfortable in no apparent distress. HEAD: Normocephalic. EYES: Normal reaction of pupils, equal size. NOSE: Clear with pink turbinates. THROAT: No erythema or exudates. NECK: No masses, no JVD. CHEST: No chest wall deformity. LUNGS: Equal air entry with bibasilar crackles. CVS: S1 and S2 normal with no audible murmur, regular rhythm. ABDOMEN: No hepatosplenomegaly, normal bowel sounds, no guarding or rigidity. SPINE: No scoliosis or deformity SKIN: No rashes CENTRAL NERVOUS SYSTEM: No focal deficits, tone is normal in all 4 extremities. EXTREMITIES: There is 1+ peripheral edema. No clubbing, no cyanosis. Peripheral pulses are intact. - Labs CBC & Chem 7: 08/26/24 07:14 08/26/24 07:14 Labs: Abnormal Lab Results - Last 24 Hours (Table) 08/26/24 08/26/24 Range/Units 07:14 07:14 WBC 19.96 H (4.50-10.00) 10*3/uL RBC 3.91 L (4.10-5.20) 10*6/uL Hgb 11.0 L (12.0-15.0) g/dL Hct 36.8 L (37.2-46.3) % MCHC 29.9 L (32.0-37.0) g/dL Immature Gran # 1.36 H (0.00-0.04) 10*3/uL Potassium 3.1 L (3.5-5.1) mmol/L Carbon Dioxide 31 H (22-30) mmol/L BUN 57 H (7-17) mg/dL Creatinine 1.21 H (0.52-1.04) mg/dL Glucose 189 H (74-99) mg/dL Assessment and Plan Assessment: Acute hypoxic respiratory failure most likely related to COPD, chronic restrictive lung disease related to obesity and a component of CHF with bilateral pleural effusion. Pneumonia is possible although felt to be less likely at this stage. Echocardiogram was completed and the patient has a preserved LV function. Chest x-ray continues to show atelectatic changes lung bases. There is an obvious left lower lobe collapse and there is also atelectatic changes right lung base. The patient became more short of breath and hypoxic and the patient had to be placed on a BiPAP at a pressure of 18 over 8 cm of water and FiO2 of 60% and the patient is currently transitioned to 5 L of O2 nasal cannula. Overall condition is stable and the patient continues to alternate between a BiPAP and oxygen 5 L/min nasal cannula. Still on bronchodilators. Still on steroids. Maintained on Diamox. Altered mental status secondary to above Hyponatremia Mild leukocytosis Mild anemia History of congestive heart failure History of CVA with left-sided hemiplegia History of gout Hyperlipidemia Lifelong non-smoker [facility] resident Plan: The patient was seen and evaluated Labs and medications reviewed Currently on 5 L nasal cannula Titrate down the FiO2 as tolerated Continue Diamox Continue bronchodilators Coagulated with Eliquis Plan is to return to [facility] at discharge We will continue to follow I have personally seen and examined the patient, performed the documentation and the assessment and plan as written. Number of minutes spent on the visit: 10 Dictation was produced using [employer] software. Please excuse any grammatical, word or spelling errors.
[2024-08-26 14:02] VITALS: BMI 37.7
[2024-08-26] MEDS: predniSONE 10 MG TAB PO SCH (16:24)
--- NOTE | 2024-08-27 05:19 | P.PN ---
Subjective Progress Note Date: 08/26/24 84-year-old female who was recently admitted with acute respiratory failure multifactorial secondary to CHF and COPD exacerbation. Patient continues to be mildly confused although appears at baseline. Patient resides at [facility] with plans on returning there. Patient is currently continued on 5 L via nasal cannula and using BiPAP at night. Per pulmonary patient is maintained on IV Diamox and will discuss further regarding treatment plan and transitioning to oral. Patient is currently afebrile with no reports of chest pain or worsening shortness of breath. Patient tolerating diet although not eating much and this appears chronic as well. Encourage supplements between meals. Will discuss with case management regarding discharge planning as well. Overall prognosis remains guarded. Review of systems: Constitutional: reports of fatigue, no fever, or chills Cardiovascular: No reports of chest pain or palpitations Respiratory: No reports of worsening shortness of breath or cough GI: No reports of nausea, no reports of vomiting, no diarrhea, not much of an appetite : No reports of dysuria or retention Neurovascular: reports of generalized weakness All medications have been reviewed PHYSICAL EXAMINATION: GENERAL: The patient is alert and oriented x1-2 baseline, Well developed, elderly appearing, ill-appearing, obese HEENT: Pupils are round and equally reacting to light. EOMI. no scleral icterus. No conjunctival pallor. Normocephalic, atraumatic. No pharyngeal erythema. No thyromegaly. CARDIOVASCULAR: S1 and S2 muffled PULMONARY: diminished breath sounds bilaterally with some expiratory wheezing and coarse scattered rhonchi noted. ABDOMEN: soft. Nontender on exam. obese. non-distended, normoactive bowel sounds. No palpable organomegaly. MUSCULOSKELETAL: No joint swelling or deformity. EXTREMITIES: No cyanosis, clubbing, or pedal edema. NEUROLOGICAL: Gross neurological examination did not reveal any focal deficits. Diffuse weakness SKIN: No rashes. Assessment: Shortness of breath, multifactorial secondary to congestive heart failure and chronic obstructive pulmonary disease acute exacerbation Change in mental status, metabolic encephalopathy Acute hypoxic respiratory failure secondary to CHF and COPD exacerbation, currently maintained on 5 L and using BiPAP at night Hyponatremia Hyperlipidemia History of gout New onset atrial fibrillation, currently rate controlled Obesity with a BMI 37.1 GI prophylaxis DVT prophylaxis No code Plan: Recommend to continue with current medications and management with pulmonary following. Patient is maintained on IV Diamox and will discuss treatment plan moving forward and regarding diuretic therapy on discharge. Follow-up on repeat labs in a.m. and replace electrolytes per protocol Continue current diet and encourage oral intake. Recommend aspiration precautions with head of the bed elevated 35 to 45 degrees at all times Will discuss with case management/social work regarding discharge planning once cleared by pulmonary Due to multiple medical issues, overall prognosis is guarded The impression and plan of care has been dictated by Deirdre Tanner, nurse practitioner as directed. Dr. Codey MD I have performed a history and examination and MDM of this patient, discussed the same with the dictator, and agree with the dictator's assessment and plan as written ,documented as a scribe. Based on total visit time, I have performed more than 50% of the visit. Any additional findings or plans will be noted. Objective - Vital Signs Vital signs: Vital Signs Temp 97.9 F 08/26/24 20:10 Pulse 101 H 08/27/24 04:15 Resp 16 08/27/24 04:15 BP 118/80 08/27/24 04:15 Pulse Ox 97 08/27/24 04:15 FiO2 50 08/27/24 04:38 Intake & Output 08/26/24 08/26/24 08/27/24 06:59 18:59 06:59 Intake Total 118 Output Total 1051 Balance 118 -1051 Weight 90.5 kg 90.5 kg 89 kg Intake: Oral 118 Output: Urine 1050 Uretheral (Howe) 600 Stool 1 Other: Voiding Method Indwelling Catheter Indwelling Catheter Indwelling Catheter - Labs CBC & Chem 7: 08/26/24 07:14 08/26/24 07:14 Labs: Abnormal Lab Results - Last 24 Hours (Table) 08/26/24 08/26/24 Range/Units 07:14 07:14 WBC 19.96 H (4.50-10.00) 10*3/uL RBC 3.91 L (4.10-5.20) 10*6/uL Hgb 11.0 L (12.0-15.0) g/dL Hct 36.8 L (37.2-46.3) % MCHC 29.9 L (32.0-37.0) g/dL Immature Gran # 1.36 H (0.00-0.04) 10*3/uL Neutrophils # 17.65 H (1.80-7.70) 10*3/uL Lymphocytes # 0.50 L (0.90-5.00) 10*3/uL Eosinophils # 0.00 L (0.04-0.35) 10*3/uL Potassium 3.1 L (3.5-5.1) mmol/L Carbon Dioxide 31 H (22-30) mmol/L BUN 57 H (7-17) mg/dL Creatinine 1.21 H (0.52-1.04) mg/dL Glucose 189 H (74-99) mg/dL
[2024-08-27 09:21] LABS: Basophils # (A) 0.05 10*3/uL (0.00-0.10); Basophils % (A) 0.2 %; Eosinophils # (A) 0.00 10*3/uL (0.04-0.35); Eosinophils % (A) 0.0 %; HCT 35.2 % (37.2-46.3); HGB 10.6 g/dL (12.0-15.0); Lymphocytes # (A) 0.51 10*3/uL (0.90-5.00); Lymphocytes % (A) 2.1 %; MCH 28.1 pg (27.0-32.0); MCHC 30.1 g/dL (32.0-37.0); MCV 93.4 fL (80.0-97.0); Monocytes # (A) 0.42 10*3/uL (0.20-1.00); Monocytes % (A) 1.8 %; Neutrophils # (A) 21.73 10*3/uL (1.80-7.70); Neutrophils % (A) 91.3 %; Platelet Count 201 10*3/uL (140-440); RBC 3.77 10*6/uL (4.10-5.20); RDW 16.1 % (11.5-14.5); WBC 23.80 10*3/uL (4.50-10.00)
[2024-08-27 09:39] LABS: ALT 16 U/L (4-34); AST 29 U/L (14-36); African American GFR (CKD) 54 (>60 ml/min/1.73 sqM); Albumin 2.6 g/dL (3.5-5.0); Alkaline Phosphatase 67 U/L (38-126); Anion Gap 8 mmol/L; Blood Urea Nitrogen 53 mg/dL (7-17); Calcium 9.7 mg/dL (8.4-10.2); Carbon Dioxide 31 mmol/L (22-30); Chloride 106 mmol/L (98-107); Glucose 191 mg/dL (74-99); Magnesium 2.5 mg/dL (1.6-2.3); Non-African American GFR(CKD) 47 (>60 ml/min/1.73 sqM); Potassium 3.8 mmol/L (3.5-5.1); Sodium 145 mmol/L (137-145); Total Protein 4.7 g/dL (6.3-8.2)
--- NOTE | 2024-08-27 15:25 | P.DS ---
Providers Date of admission: 08/16/24 04:52 Expected date of discharge: 08/27/24 Attending physician: Ryan Alegre Consults: 08/16/24 04:51 Consult Physician Routine Consulting Provider: Bora Montemayor Consult Reason/Comments: chf Do you want consulting provider notified?: Yes Consult Physician Routine Consulting Provider: Darshan Fields Consult Reason/Comments: hypoxiay Do you want consulting provider notified?: Yes Primary care physician: Yoni Polanco Hospital Course: Final diagnosis Shortness of breath, multifactorial secondary to congestive heart failure and chronic obstructive pulmonary disease acute exacerbation Change in mental status, metabolic encephalopathy Acute hypoxic respiratory failure secondary to CHF and COPD exacerbation, currently maintained on 5 L and using BiPAP at night Hyponatremia Hyperlipidemia History of gout New onset atrial fibrillation, currently rate controlled Obesity with a BMI 37.1 GI prophylaxis DVT prophylaxis No code Discharge disposition Patient is being discharged in a stable condition with guarded prognosis to [facility] on [facility]. Patient will follow-up with Dr. Polanco in the outpatient setting upon discharge. Patient is to continue with oral Diamox and outpatient follow-up with repeat labs to monitor kidney functions and electrolytes in the next 2 to 3 days and continue holding Lasix until repeat labs. Follow-up with pulmonary outpatient total time taken is greater than 35 minutes. Hospital course This is a 84-year-old female who was recently admitted with with increasing shortness of breath with acute hypoxic respiratory failure secondary to CHF and COPD exacerbation. Patient continued on BiPAP and recommend to continue on BiPAP with settings as mentioned below from 8 PM to 6 AM and as needed. Patient is continued on 5 L via nasal cannula throughout the day. Patient is continued on Diamox and will continue and recommend holding Lasix for the next 2 days until repeat labs to monitor kidney functions and electrolytes. Recommend follow-up with pulmonary outpatient. Patient was evaluated by wound care and has a coccyx wound on the sacral area and recommend to change dressings Sunday/Sunday/Sunday or if becoming soiled and apply honey to open ulcerations and zinc barrier cream to the periwound and covered with bordered foam. Patient will be going to [facility] to return on discharge. Patient has been cleared by consultations. Please refer to consultation notes for further HPI. Currently no reports of chest pain, shortness of breath, or palpitations. Patient is afebrile. No reports of nausea or vomiting and patient is tolerating diet. Patient will be going to [facility] on the [facility] today. Guarded prognosis Physical exam: Gen: This is a 84-year-old female who is awake, alert and oriented x 2, well- developed, elderly appearing, obese HEENT: Head is atraumatic, normocephalic. Pupils equal, round. Sclerae is anicteric. NECK: Supple. No JVD. No lymphadenopathy. No thyromegaly. LUNGS: Diminished breath sounds bilaterally with some scattered expiratory wheezes and coarse scattered rhonchi. No intercostal retractions. HEART: Regular rate and rhythm. No murmur. ABDOMEN: Soft. Obese bowel sounds are present. No masses. No tenderness. EXTREMITIES: No pedal edema. No calf tenderness. NEUROLOGICAL: Patient is awake, alert and oriented x 2. Baseline. Cranial nerv es 2 through 12 are grossly intact. Diffusely weak Please refer to medication reconciliation sheet for a list of medications. The impression and plan of care has been dictated by Deirdre Tanner, Nurse Practitioner as directed. Dr. Codey MD I have performed a history and examination and MDM of this patient, discussed the same with the dictator, and agree with the dictator's assessment and plan as written ,documented as a scribe. Based on total visit time, I have performed more than 50% of the visit. Patient Condition at Discharge: Fair Plan - Discharge Summary New Discharge Prescriptions: New Apixaban [Eliquis] 2.5 mg PO BID tab Albuterol Nebulized [Ventolin Nebulized] 2.5 mg INHALATION RT-Q4H PRN ml PRN Reason: Shortness Of Breath Or Wheezing acetaZOLAMIDE [Diamox] 250 mg PO BID #10 tablet predniSONE See Taper PO DIRECTED #30 tab Continue Biotene Dry Mouth/Throat Liquid 15 ml PO Q8HR@0600,1400,2200 Z-Guard 1 applic TOPICAL DAILY PRN PRN Reason: dressing changes Z-Guard 1 applic TOPICAL Q12H Acetaminophen Tab [Tylenol] 650 mg PO Q4H PRN PRN Reason: Pain Ascorbic Acid [Vitamin C] 500 mg PO Q12HR@0900,2100 Collagenase [Santyl Ointment] 1 applic TOPICAL DAILY PRN PRN Reason: after NS cleanse guaiFENesin [Mucinex] 1,200 mg PO Q12HR@0900,2100 Levofloxacin [Levaquin] 750 mg PO DIRECTED@1200 Potassium Chloride ER [K-Dur 20] 20 meq PO HS@2100 Gabapentin [Neurontin] 100 mg PO Q12HR@0900,2100 Oyster Shell Calcium 500mg 500 mg PO Q12HR@0900,2100 Cholecalciferol [Vitamin D3 (10 Mcg = 400 Iu)] 10 mcg PO Q12HR@0900,2100 Melatonin 3 mg PO HS@2099 Omeprazole 20 mg PO DAILY@0900 Discontinued Furosemide [Lasix] 20 mg PO BID@0600,1700 metOLazone [Zaroxolyn] 5 mg PO DAILY@1200 No Action Fexofenadine HCl [Soniya Allergy] 180 mg PO DAILY@0900 Alendronate Sodium [Fosamax] 70 mg PO MO@0600 Multivitamins, Thera [Multivitamin (formulary)] 1 tab PO DAILY@0900 polyethylene glycoL 3350 [Miralax] 17 gm PO DAILY@0900 Ferrous Sulfate [Iron (65 MG Elemental)] 325 mg PO Q12HR@0900,2099 Ipratropium-Albuterol Nebulize [Duoneb 0.5 mg-3 mg/3 ml Soln] 3 ml INHALATION RT-Q6H Fluticasone Propionate [Fluticasone Propionate Ros[place] 50 mcg Nasal Ros[place]] 2 spr INHALATION DAILY@0900 Collagenase [Santyl Ointment] 1 applic TOPICAL HS Sennosides [Senokot] 17.2 mg PO Q12HR@0900,2100 Lactobacillus Acidophilus [Acidophilus Probiotic] 1 cap PO BID@0900,2099 Magnesium Oxide 400 mg PO HS@2099 allopurinoL [Zyloprim] 100 mg PO DAILY@0900 Atorvastatin Calcium [Lipitor] 40 mg PO HS@2100 Aspirin EC [Ecotrin Low Dose] 81 mg PO DAILY@0600 carvediloL [Coreg] 3.125 mg PO BID@0900,2099 Ezetimibe [Zetia] 10 mg PO HS@2100 Carbamide Peroxide [Debrox Otic] 2 drops BOTH EARS HS@2100 Budesonide 0.5 mg INHALATION RT-BID@0900,2099 Discharge Medication List Alendronate Sodium [Fosamax] 70 mg PO MO@0600 08/22/13 [History] Fexofenadine HCl [Soniya Allergy] 180 mg PO DAILY@0900 08/22/13 [History] Aspirin EC [Ecotrin Low Dose] 81 mg PO DAILY@59910/22/21 [History] Atorvastatin Calcium [Lipitor] 40 mg PO HS@209910/22/21 [History] Lactobacillus Acidophilus [Acidophilus Probiotic] 1 cap PO BID@0900,209910/22/21 [History] Magnesium Oxide 400 mg PO HS@209910/22/21 [History] Multivitamins, Thera [Multivitamin (formulary)] 1 tab PO DAILY@89910/22/21 [History] Sennosides [Senokot] 17.2 mg PO Q12HR@899,209910/22/21 [History] allopurinoL [Zyloprim] 100 mg PO DAILY@89910/22/21 [History] polyethylene glycoL 3350 [Miralax] 17 gm PO DAILY@89908/10/22 [History] Budesonide 0.5 mg INHALATION RT-BID@899,209904/21/24 [History] Carbamide Peroxide [Debrox Otic] 2 drops BOTH EARS HS@209904/21/24 [History] Collagenase [Santyl Ointment] 1 applic TOPICAL HS 04/21/24 [History] Ezetimibe [Zetia] 10 mg PO HS@209904/21/24 [History] Ferrous Sulfate [Iron (65 MG Elemental)] 325 mg PO Q12HR@899,209904/21/24 [History] Fluticasone Propionate [Fluticasone Propionate [place] 50 mcg Nasal [place]] 2 spr INHALATION DAILY@89904/21/24 [History] Ipratropium-Albuterol Nebulize [Duoneb 0.5 mg-3 mg/3 ml Soln] 3 ml INHALATION RT-Q6H 04/21/24 [History] carvediloL [Coreg] 3.125 mg PO BID@899,209904/21/24 [History] Acetaminophen Tab [Tylenol] 650 mg PO Q4H PRN 08/16/24 [History] Ascorbic Acid [Vitamin C] 500 mg PO Q12HR@0900,209908/16/24 [History] Biotene Dry Mouth/Throat Liquid 15 ml PO Q8HR@0600,1400,2200 08/16/24 [History] Cholecalciferol [Vitamin D3 (10 Mcg = 400 Iu)] 10 mcg PO Q12HR@0900,209908/16/24 [History] Collagenase [Santyl Ointment] 1 applic TOPICAL DAILY PRN 08/16/24 [History] Gabapentin [Neurontin] 100 mg PO Q12HR@0900,209908/16/24 [History] Levofloxacin [Levaquin] 750 mg PO DIRECTED@119908/16/24 [History] Melatonin 3 mg PO HS@209908/16/24 [History] Omeprazole 20 mg PO DAILY@89908/16/24 [History] Oyster Shell Calcium 500mg 500 mg PO Q12HR@0900,209908/16/24 [History] Potassium Chloride ER [K-Dur 20] 20 meq PO HS@209908/16/24 [History] Z-Guard 1 applic TOPICAL DAILY PRN 08/16/24 [History] Z-Guard 1 applic TOPICAL Q12H 08/16/24 [History] guaiFENesin [Mucinex] 1,200 mg PO Q12HR@0900,209908/16/24 [History] Albuterol Nebulized [Ventolin Nebulized] 2.5 mg INHALATION RT-Q4H PRN ml 08/27/24 [Rx] Apixaban [Eliquis] 2.5 mg PO BID tab 08/27/24 [Rx] acetaZOLAMIDE [Diamox] 250 mg PO BID #10 tablet 08/27/24 [Rx] predniSONE See Taper PO DIRECTED #30 tab 08/27/24 [Rx] Follow up Appointment(s)/Referral(s): Yoni Polanco MD [Primary Care Provider] - 1-2 days Activity/Diet/Wound Care/Special Instructions: Activity as tolerated Patient is discharging to [facility] Patient is to continue on BiPAP at night with a IPAP of 14, EPAP of 6, FiO2 at 100% and patient should be wearing this as needed as well as 8 PM until 6 AM Continue with supplemental oxygen Follow-up with pulmonary outpatient Follow-up with primary care provider on discharge Continue on Diamox Continue holding Lasix for the next few days this and follow-up on repeat labs to monitor kidney functions Discharge Disposition: TRANSFER TO SNF/ECF
[2024-08-27 16:12] VITALS: BP 114/72; PULSE 91; RESP 14; TEMP 97.9
--- NOTE | 2024-08-27 16:29 | P.PN ---
Subjective Progress Note Date: 08/27/24 On 08/18/2024, the patient is being seen for a follow-up. This is a 84-year-old female patient who is currently being seen for CHF and the patient is being treated accordingly. The chest x-ray showed also small bilateral pleural effusions along with cardiomegaly. The patient has extensive instrumentation and spinal fixation involving the thoracic spine. The patient is currently on Coreg 3.125 mg twice a day, Lasix 40 mg IV every 12 hours and Aldactone 25 mg p.o. daily. The patient is also on Zaroxolyn 5 mg p.o. daily. The patient is maintained on oxygen and she is currently on 7 L with a pulse ox of 93%. Blood work from today shows a white cell count of 14.7 with a hemoglobin 9.6 and a platelet count of 413. Sodium is at 133, potassium is at 3.4, BUN is at 26 with a creatinine of 0.9. Serum bicarb is at 38. The patient is also on empiric antibiotic coverage and the patient remains on IV Rocephin. Rest of the medications remain essentially unchanged. Noted, the patient was initially on a BiPAP and the patient is currently off the BiPAP on 7 L of oxygen by nasal cannula. On 08/19/2024, the patient became very intensive care unit. The patient got transferred to the ICU overnight as the patient was found to be more hypoxic and more short of breath and she also had a drop in her blood pressure. She was given a bolus of 500 cc and the patient's blood pressure has normalized. She was on 60s of oxygen by nasal cannula and the patient was transitioned to BiPAP at a pressure of 18 over 8 cm of water with an FiO2 of 60%. For now, the patient is tolerating the BiPAP reasonably well. Her minute ventilation is around 6.8 L/min and the generated tidal volume is 270 cc. The blood gas showed a pH of 7.44 with a PCO2 of 65 and PO2 of 78 and a fluid balance is -929 cc over the past 24 hours. The patient remains on DuoNebtreatment [id number]. The patient remains on IV Solu-Medrol. The diuretics will be placed on hold as the patient has developed alkalosis. The sodium levels at 135, potassium is 3.5, bicarb is at 39 with a chloride of 88. BUN is 30 with a creatinine of 0.7. WBC count 16.9 with a hemoglobin 10.2 and a platelet count of 370. Chest x-ray from this morning shows small bilateral pleural effusion and cardiomegaly. Clinically, the patient is tolerating the BiPAP well. The patient is arousable. No focal neurological deficits. Echocardiogram was ordered and this has not been completed yet. On today's evaluation of 08/20/2024, the patient was taken off the BiPAP. Note that overnight, the patient was kept on a BiPAP pressure of 18 over 8 cm of water and FiO2 of 60%. Currently she is on 6 L of oxygen by nasal cannula. More arousable and communicating. Her breathing is remains quite shallow and the patient was not offered an incentive spirometer. IV fluids are currently at KVO. Fluid balance is -1.1 L. The patient was also noted to be in atrial fibrillation. Meanwhile, the chest x-ray from today is showing left lower lobe atelectasis/collapse and some right basilar airspace disease with possible development of pleural effusions. Based on that, ultrasound of the chest was ordered to evaluate for any pleural effusions. Meanwhile, the patient remains on bronchodilators with DuoNeb nebulized treatments [id number], IV Solu- Medrol 60 mg every 6 hours and the patient is also on Lasix 40 mg IV every 12 hours. Remains on anticoagulation with Eliquis 2.5 mg p.o. twice daily. The white cell count is at 12.1 with a heme of 10.2 and a platelet count of 374. BUN 31 with a creatinine of 1.02. Serum bicarb is at 40 and sodium levels at 136 and a potassium level is at 3.6.The echocardiogram was also completed and the patient was found to have a preserved LV function with a normal ejection fraction of 50%. Mild mitral and tricuspid regurgitation. Right-sided pressures were not adequately measured. On 08/21/2024, the patient is being seen for a follow-up. The patient was taken off the BiPAP yesterday and later on during the day, the patient had to be placed back on the BiPAP. Noted the patient was weaned down to 4 L of oxygen by nasal cannula. This morning, she is back on the BiPAP at a pressure of 18/8 w ith an FiO2 of 80%. The minute ventilation is around 9 L/min and the patient is generating a tidal volume of 300 cc. She is lethargic, sleepy at arousable. The blood gas was done that shows a pH of 7.48 with a AAG549 and PO2 of 68 and this was done on 80% BiPAP. A repeat chest x-ray was done today and shows smaller lung volumes. The patient has a small right-sided pleural effusion and the patient has adjacent right basilar opacity and probably some retrocardiac atelectatic changes. The patient also has hardware at multiple levels involving the thoracic spine prior related to thoracic spine fusion. The patient remains on bronchodilators. The patient remains on steroids. The patient is also on diuretics and the patient is currently receiving Lasix 40 mg IV every 12 hours. The fluid balance is -1.1 L over the past 24 hours. Blood work from today shows a white cell count of 15.3 with a hemoglobin 10.9 and a platelet count of 424. His serum bicarb is 41, sodium is 135, potassium level is 4.1, BUN is 37 and the creatinine is 1.04. On 08/22/2024, the patient is awake and alert. Overnight, the patient spent on BiPAP at a pressure of 18/8 with FiO2 of 60%. Morning blood gas showed a pH of 7.45 with a pCO2 of 59 and a PO217. Chest x-ray is essentially unchanged. This is a limited chest x-ray due to the patient's body habitus and thoracic kyphosis. The patient has trace right-sided pleural effusion and adjacent atelectasis and the patient also has thoracic fusion hardware and multiple levels of vertebroplasty. The patient has some mild cardiomegaly. No airspace disease or consolidation. The patient was taken off the BiPAP and the patient was placed on oxygen and she is currently on oxygen at 4 L/min nasal cannula. She is able to maintain a pulse ox above 90%. Awake and alert and communicating. She is complaining of oral dryness. She is also requesting some food intake. The white cell count is 14.1, hemoglobin is at 10.6 and a platelet count of 341. Sodium is at 135, BUN is 46 and the creatinine is at 1.2. Fluid balance is in the order of -330 cc over the past 24 hours. The patient remains on diuretics with IV Lasix. Remains on bronchodilators. Remains on steroids. Remains on Diamox. Cultures involving blood culture was negative. On today's evaluation of 08/23/2024, the patient is being seen for a follow-up. The patient remains on a BiPAP at a pressure of 18/8 with an FiO2 of 50%. She spent the whole night on the BiPAP and currently she will be transitioned to oxygen by nasal cannula at 5 L. Arousable, denies having any specific co mplaints. White cell count of 15.6 with a hemoglobin 11.3 and a platelet count of 310. BUN is 53 and the creatinine is 1.48 and the sodium is at 137. Remains on DuoNeb updrafts. The patient is also on IV Solu-Medrol 60 mg every 12 hours. Remains on anticoagulation with Eliquis 2.5 mg twice a day. Remains on a combination of Perforomist and Pulmicort nebulized unit twice a day. Will be off of the diet. No focal neurological deficits. Rest of the medications are essentially unchanged. On today's evaluation of 2024, the patient is still alternating between BiPAP at a pressure of 18/8 with an FiO2 of 50% and oxygen at 5 L nasal cannula. Doing well. She has chronic hypoxic and hypercapnic respiratory failure. No signs of any CO2 narcosis. No chest pain. No other new complaints otherwise for now. No recent blood work from today. Most recent chest x-rays from 08/22/2024. She is chronically debilitated. She remains on Diamox 5 mg IV every 12 hours. She remains anticoagulated with Eliquis. She is on DuoNeb nebulized treatments and Pulmicort nebulized treatments twice a day and Perforomist. She is also on IV Solu-Medrol 60 mg every 12 hours. She is tolerating diet. Moving all 4 extremities. No signs of any focal neurological deficits. She is a DNR/DNI CODE STATUS. The patient is seen today August 25, 2024 in follow-up on the selective care unit. She is awake and alert in no acute distress. Maintaining O2 saturations in the high 90s on 5 L high flow nasal cannula. She is afebrile. Hemodynamically stable. Chest x-ray continues to reveal cardiomegaly, pulmonary vascular congestion and bilateral pleural effusions. Blood culture revealed no growth. No new labs today. She remains on DuoNeb inhalations, Pulmicort inhalations, IV Solu-Medrol. Normal saline at 20 mL/h. Anticoagulated with Eliquis. Remains on Diamox. The patient is seen today August 26, 2024 in follow-up on the selective care unit. She is currently sitting up in bed. Awake and alert. Maintaining O2 saturations in the upper 90s on 5 L high flow nasal cannula. She has been afebr ile. Hemodynamically stable. White count 19.9. Hemoglobin 11.0. Platelets 235. Sodium 145. Potassium 3.1. Bicarb 31. BUN 57. Creatinine 1.21. Glucose 189. She remains on DuoNeb inhalations. Continued on Solu-Medrol. Anticoagulated with Eliquis. Remains on Diamox. The patient is seen today August 27, 2024 in follow-up on the selective care unit. She is currently sitting up in bed. Awake and alert. Being assisted with lunch. No worsening shortness of breath, cough or congestion. Maintaining O2 saturations in the 90s on 4 L/min per nasal cannula. Blood culture revealed no growth. White count 23.8. Hemoglobin 10.6. Platelets 201. Sodium 145. Potassium 3.8. Bicarb 31. BUN 53. Creatinine 1.10. Glucose 191. She is continued on Diamox. Continued on bronchodilators. Anticoagulated with Eliquis. Remains on a prednisone taper. Objective - Vital Signs Vital signs: Vital Signs Temp 97.9 F 08/27/24 16:03 Pulse 91 08/27/24 16:03 Resp 14 08/27/24 16:03 BP 114/72 08/27/24 16:03 Pulse Ox 97 08/27/24 16:03 FiO2 50 08/27/24 04:38 Intake & Output 08/26/24 08/27/24 08/27/24 18:59 06:59 18:59 Intake Total 118 450 Output Total 1051 350 Balance 118 -1051 100 Weight 90.5 kg 89 kg Intake: Oral 118 450 Output: Urine 1050 350 Uretheral (Howe) 600 Stool 1 Other: Voiding Method Indwelling Catheter Indwelling Catheter Indwelling Catheter - Exam GENERAL EXAM: Alert, 84-year-old female, sitting up in bed, being assisted with lunch, on 5 L high flow nasal cannula, comfortable in no apparent distress. HEAD: Normocephalic. EYES: Normal reaction of pupils, equal size. NOSE: Clear with pink turbinates. THROAT: No erythema or exudates. NECK: No masses, no JVD. CHEST: No chest wall deformity. LUNGS: Equal air entry with bibasilar crackles. CVS: S1 and S2 normal with no audible murmur, regular rhythm. ABDOMEN: No hepatosplenomegaly, normal bowel sounds, no guarding or rigidity. SPINE: No scoliosis or deformity SKIN: No rashes CENTRAL NERVOUS SYSTEM: No focal deficits, tone is normal in all 4 extremities. EXTREMITIES: There is 1+ peripheral edema. No clubbing, no cyanosis. Periphe ral pulses are intact. - Labs CBC & Chem 7: 08/27/24 08:35 08/27/24 08:35 Labs: Abnormal Lab Results - Last 24 Hours (Table) 08/27/24 08/27/24 Range/Units 08:35 08:35 WBC 23.80 H (4.50-10.00) 10*3/uL RBC 3.77 L (4.10-5.20) 10*6/uL Hgb 10.6 L (12.0-15.0) g/dL Hct 35.2 L (37.2-46.3) % MCHC 30.1 L (32.0-37.0) g/dL Immature Gran # 1.09 H (0.00-0.04) 10*3/uL Neutrophils # 21.73 H (1.80-7.70) 10*3/uL Lymphocytes # 0.51 L (0.90-5.00) 10*3/uL Eosinophils # 0.00 L (0.04-0.35) 10*3/uL Carbon Dioxide 31 H (22-30) mmol/L BUN 53 H (7-17) mg/dL Creatinine 1.10 H (0.52-1.04) mg/dL Glucose 191 H (74-99) mg/dL Magnesium 2.5 H (1.6-2.3) mg/dL Total Protein 4.7 L (6.3-8.2) g/dL Albumin 2.6 L (3.5-5.0) g/dL Assessment and Plan Assessment: Acute hypoxic respiratory failure most likely related to COPD, chronic restrictive lung disease related to obesity and a component of CHF with bilatera l pleural effusion. Pneumonia is possible although felt to be less likely at this stage. Echocardiogram was completed and the patient has a preserved LV function. Chest x-ray continues to show atelectatic changes lung bases. There is an obvious left lower lobe collapse and there is also atelectatic changes right lung base. The patient became more short of breath and hypoxic and the patient had to be placed on a BiPAP at a pressure of 18 over 8 cm of water and FiO2 of 60% and the patient is currently transitioned to 5 L of O2 nasal cannula. Still on bronchodilators. Still on steroids. Maintained on Diamox. Altered mental status secondary to above, recovered Hyponatremia Mild leukocytosis Mild anemia History of congestive heart failure History of CVA with left-sided hemiplegia History of gout Hyperlipidemia Lifelong non-smoker prison resident Plan: The patient was seen and evaluated Labs and medications reviewed Currently on 5 L nasal cannula Titrate down the FiO2 as tolerated Continue a prednisone taper Continue bronchodilators Anti-coagulated with Eliquis Plan is to return to [facility] today I have personally seen and examined the patient, performed the documentation and the assessment and plan as written. Number of minutes spent on the visit: 10 Dictation was produced using [employer] dictation software. Please excuse any grammatical, word or spelling errors.
== END 2024-08-27 18:00 | DRG 871 ==
LOC: EC 01:56 → 4SSUR 04:52 → 3SCARD 06:46 → 2SICU 08-19 06:22 → 3SCARD 08-22 15:05
PROVIDERS: ADMIT Hospitalist; ATTEND Hospitalist
PROC: 5A09457 Assistance with Respiratory Ventilation, 24-96 Consecutive Hours, Continuous Positive Airway Pressure (ICD-10-PCS; principal; 2024-08-16)
DX: A41.9 Sepsis, unspecified organism (principal); G92.8 Other toxic encephalopathy; J18.9 Pneumonia, unspecified organism; I50.31 Acute diastolic (congestive) heart failure; J96.21 Acute and chronic respiratory failure with hypoxia; J96.22 Acute and chronic respiratory failure with hypercapnia; Z66 Do not resuscitate; J44.0 Chronic obstructive pulmonary disease with (acute) lower respiratory infection; I69.354 Hemiplegia and hemiparesis following cerebral infarction affecting left non-dominant side; I11.0 Hypertensive heart disease with heart failure; E66.9 Obesity, unspecified; D64.9 Anemia, unspecified; G82.20 Paraplegia, unspecified; I48.19 Other persistent atrial fibrillation; J44.1 Chronic obstructive pulmonary disease with (acute) exacerbation; E87.1 Hypo-osmolality and hyponatremia; E87.3 Alkalosis; J98.11 Atelectasis; L89.152 Pressure ulcer of sacral region, stage 2; L89.312 Pressure ulcer of right buttock, stage 2; L89.322 Pressure ulcer of left buttock, stage 2; E77.8 Other disorders of glycoprotein metabolism; E88.09 Other disorders of plasma-protein metabolism, not elsewhere classified; E78.5 Hyperlipidemia, unspecified; J98.4 Other disorders of lung; K21.9 Gastro-esophageal reflux disease without esophagitis; M40.204 Unspecified kyphosis, thoracic region; Z68.37 Body mass index [BMI] 37.0-37.9, adult; Z79.01 Long term (current) use of anticoagulants; Z79.82 Long term (current) use of aspirin; Z79.83 Long term (current) use of bisphosphonates; Z79.899 Other long term (current) drug therapy; Z98.1 Arthrodesis status
CPT/HCPCS: 36415; 36600; 71045; 76604; 80048; 80053; 80061; 82272; 82805; 83036; 83605; 83735; 83880; 84132; 84145; 84439; 84443; 84484; 85025; 85027; 85379; 85610; 85730; 86850; 86900; 86901; 87040; 87449; 93005; 93306; 94640; 94660; 94760; 96365; 96368; 96375; 99285